=== PATIENT | male | born 1975 | race Caucasian/White ===

== ENCOUNTER 2025-03-06 12:10 | Outpatient (CLI) | payer OTHER, SELFPAY ==
--- NOTE | 2025-03-06 | CONSULT_PTH ---
PATIENT: Clark Delarosa LOC: [facility]#:[id number] AGE/SX: 49/M ROOM: RE03/06/[address]: Jose Carlos Laguna MD : 1975 BED: DIS: 03/06/2025 SPEC #: [id number] RECD: 03/06/25 12:45 STATUS: VALENTE REQ #: [id number] LEBRON: 03/06/25 00:[address]: Jose Carlos Laguna DEPT: [facility] Consult RECD BY: Renetta Almonte MLT, ([facility]) ENTERED: 03/06/25 12:45 SP TYPE: Consult OTHR DR: Aida Ohara, [employer] HELPER Tissues: A - Peripheral Smear Procedures: Hematology Consult
[2025-03-06 12:27] LABS: Hematocrit 49.1 % (40.0-54.0); Hemoglobin 16.4 g/dL (14.0-18.0); Immature Granulocyte Percent A 0.4 % (0.0-0.0); Lymphocytes Absolute Auto 3.95 K/mm3 (1.10-4.50); Mean Corpuscular HGB Conc 33.4 g/dL (32-36); Mean Corpuscular Hemoglobin 31.6 pg (27.0-31.0); Mean Corpuscular Volume 94.6 fL (78.0-102.0); Nucleated Red Blood Cells Absolute Auto 0.00 K/mm3 (0.00-0.00); Nucleated Red Blood Cells Perc 0.0 % (0-0.0); Platelet Count Result 257 K/mm3 (150-420); Red Blood Count 5.19 M/mm3 (4.70-6.10); White Blood Count 18.2 K/mm3 (4.8-10.8)
[2025-03-06 12:58] LABS: CRP < 0.5 mg/dL (<1.0)
--- OUTSIDE RECORDS SUMMARY | 2025-03-06 17:41 | XMS_ITS | Continuity of Care Document ---
Author Organization [facility], Main Office Address [address] [place] [address] Assessment Encounter Date Assessment Date Assessment LastModified by Organization Details LastModified Time 02/27/2025 02/27/2025 Labs and Imaging Visit Summary A 49-year-old male with psychiatric history was seen today for Spravato Treatment. He reported having a crap week and feeling pretty worthless. He missed a treatment appointment earlier in the week due to transportation issues. He denies current suicidal thoughts, thoughts of harming others, and hallucinations. He requested rescheduling appointments for next week, preferring Tuesday rather than Tuesday due to scheduling conflicts. The patient appears to understand the importance of regular treatment, noting he feels better when attending his scheduled appointments. Standardized Scales: PHQ9=20 A 2. Treatment adherence: I discussed with the patient the importance of regular attendance at treatment sessions after he missed an appointment due to transportation issues. He acknowledged feeling better when he maintains his treatment schedule. Rescheduled appointments for next week, with Tuesday morning confirmed Discussed importance of consistent attendance at treatment sessions [email or web address] Not available 02/27/2025 22:36:34 Plan of Treatment Reminders Order Date Submit Date Provider Last Modified By Organization Details Last Modified Time Details Appointments Spravato 2024 10:30A M Spravato Not available Not available Not available Lab None recorded. Referral None recorded. Procedures None recorded. Surgeries None recorded. Imaging None recorded. Medication Orders None recorded. Patient TargetsNo targets recorded. Patient InstructionsNo instructions recorded. Reason for Referral None Reported. 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 01247911 Active 2024 Brittni Braswell CNM, [facility] [address], [place], [address], [facility] 15:57:34 Generalize d anxiety disorder 54051052 Active 2024 Brittni Braswell CNM, [facility] [address], [place], [address], [facility] 13:11:05 Suicidal thoughts 7890939 Active 2024 Brittni Braswell CNM, [facility] [address], [place], [address], [facility] 13:11:32 Severe recurrent major depression 456572263647 Active 2024 Brittni Braswell CNM, [facility] [address], [place], [address], [facility] 21:55:51 Problem Notes None recorded. Medical Equipment None Reported. Allergies No known drug allergies Medications Name Sig Start Date Stop Date Status Note LastModified by Organization Details LastModified Time amoxicillin 500 mg capsule TAKE 1 CAPSULE BY MOUTH EVERY 8 HOURS FOR 7 DAYS 09/20 completed Not Available Not Available Not Available venlafaxine 75 mg tablet TAKE 1 TABLET BY MOUTH TWICE DAILY WITH FOOD 09/20 completed Not Available Not Available Not Available prazosin 1 mg capsule TAKE 1 CAPSULE BY MOUTH DAILY AT BEDTIME NEEDED FOR INSOMNIA active Not Available Not Available No t Available dextroamphe tamine-amph etamine 10 mg tablet TAKE 1 TABLET BY MOUTH EVERY DAY 4 TO 5 HOURS AFTER AFTERNOON DOSE OF 20 MG active Not Available Not Available No t Available clonazepam 0.5 mg tablet TAKE 1 TABLET BY MOUTH EVERY DAY active Not Available Not Available No t Available quetiapine 100 mg tablet TAKE 1 TABLET BY MOUTH DAILY AT BEDTIME active Not Available Not Available No t Available meloxicam 7.5 mg tablet TAKE 1 TABLET BY MOUTH EVERY DAY 10/22 completed Not Available Not Available Not Available propranolol 10 mg tablet TAKE 1 TABLET BY MOUTH THREE TIMES DAILY NEEDED FOR ANXIETY 10/22 completed Not Available Not Available Not Available lorazepam 0.5 mg tablet TAKE 1 TABLET BY MOUTH EVERY DAY NEEDED FOR ANXIETY 10/22 completed Not Available Not Available Not Available tamsulosin 0.4 mg capsule TAKE 1 CAPSULE BY MOUTH EVERY DAY 30 MINUTES AFTER THE SAME MEAL active Not Available Not Available No t Available venlafaxine 37.5 mg tablet TAKE 1 TABLET BY MOUTH EVERY DAY WITH FOOD 09/20 completed Not Available Not Available Not Available buspirone 30 mg tablet active Not Available Not Available Not Available dextroamphe tamine-amph etamine 20 mg tablet TAKE 1 TABLET BY MOUTH IN THE MORNING AND IN THE AFTERNOON AND 5 HOURS APART active Not Available Not Available No t Available venlafaxine 50 mg tablet TAKE 1 TABLET BY MOUTH TWICE DAILY WITH FOOD ALONG WITH 75 MG 09/20 completed Not Available Not Available Not Available diclofenac sodium 75 mg tablet,ludy yed release TAKE 1 TABLET BY MOUTH TWICE DAILY NEEDED FOR PAIN active Not Available Not Available No t Available aripiprazol e 10 mg tablet TAKE 1 TABLET BY MOUTH EVERY DAY 02/18 completed Not Available Not Available Not Available aripiprazol e 15 mg tablet TAKE 1 TABLET BY MOUTH EVERY DAY active Not Available Not Available No t Available aripiprazol e 5 mg tablet TAKE 1 TABLET BY MOUTH EVERY DAY 09/20 completed Not Available Not Available Not Available rosuvastati n 10 mg tablet TAKE 1 TABLET BY MOUTH EVERY DAY 10/22 completed Not Available Not Available Not Available Flomax active Not Available Not Availa ble Not Available quetiapine 50 mg tablet TAKE 1 TABLET BY MOUTH EVERY NIGHT AT BEDTIME active Not Available Not Available No t Available Spravato 56 mg (28 mg x 2) nasal spray Inhale 2 sprays twice a week by intranasa l route. 10/29 completed Not Available Not Available Not Available Spravato 84 mg (28 mg x 3) nasal spray INHALE 84MG PER NASAL ROUTE twice a week 2024 active Not Available Not Available Not Avai lable quetiapine 150 mg tablet TAKE 1 TABLET BY MOUTH EVERY DAY active Not Available Not Available No t Available Auvelity 45 mg-105 mg tablet, extended release TAKE 1 TABLET BY MOUTH TWICE DAILY active Not Available Not Available No t Available Vitals Date Recorded Body height Body mass index (BMI) Body weight Heart rate Oxygen saturation Oxygen saturation in Arterial blood by Pulse oximetry Heart rate Heart rate Oxygen saturation Oxygen saturation in Arterial blood by Pulse oximetry Oxygen saturation Oxygen saturation in Arterial blood by Pulse oximetry Provider Name and Address Organization Details Last Updated DateTime 172.72 cm 25.8 kg/m2 29702.7 g 86 /min 98 % 98 % 68 /min 82 /min 99 % 99 % 100 % 100 % Jocy Calabrese [facility] 16:13:30 Date Recorded Systolic And Diastolic Systolic And Diastolic Systolic And Diastolic Provider Name and Address Organization Details Last Updated DateTime 02/27/2025 129/76 mm[Hg] 134/89 mm[Hg] 124/84 mm[Hg] Jocy Calabrese [facility] 02/27/2025 16:13:10 Social History Question Answer Notes LastModified by [email or web address] Details LastModified Time Tobacco Smoking Status Current Every Day Smoker Brittni Braswell, NIC, PMHNP- [address], [place], [address] 09/20/2024 12:05:26 Are There Any Guns Present In Your Home? Yes [email or web address] Information not available 09/20/2024 Do You Feel Safe In Your Home? Yes [email or web address] Information not available 09/20/2024 How Much Tobacco Do You Smoke? 1 PPD [email or web address] Information not available 09/20/2024 Has Tobacco Cessation Counseling Been Provided? No Information not available 09/20/2024 How Many Years Have You Smoked Tobacco? 35 [email or web address] Information not available 09/20/2024 Sex: Unknown Functional Status Question Answer Note LastModified by Organizat ion Details LastModified Time Do you use any illicit or recreational drugs? No [email or web address] Information not available 09/20/2024 Do you or have you ever used any other forms of tobacco or nicotine? Yes [email or web address] Information not available 09/20/2024 What is your level of alcohol consumption? None [email or web address] Information not available 09/20/2024 Do you or have you ever used e-cigarettes or vape? Never used electronic cigarettes [email or web address] Information not available 09/20/2024 Mental Status Question Answer Note LastModified by Organization D etails LastModified Time Do you feel stressed (tense, restless, nervous, or anxious, or unable to sleep at night)? [id number] [email or web address] Information not available 09/20/2024 Family History Relationship Description Onset Age of this Age Resolved Age Notes LastModified by Organization Details LastModified Time Father Anxiety [email or web address] Not available 09/20/2024 11:47:22 Medical History Condition Response Anxiety Disorder Y Psychiatric/Mental Health Condition Y Depression Y High Cholesterol Y Psychiatric Illness Y Past Encounters Encounter ID Performer Location Encounter Start Date Encounter Closed Date Diagnosis/Indication Diagnosis SNOMED-CT Code Diagnosis ICD10 Code Diagnosis IMO Codes Diagnosis Note [id number] Brittni Braswell CNM, [facility] Main Office [address] [facility] [place] [address] 02/05/2025 09:08:55 02/06/2025 09:22:01 Severe 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 65915549 F33.2 6653108 0810 Spravato 28mg given intranasal ly and repeated at 0815, 3rd dose given at 0820. SAO2 98-99%Jaso n did well with therapy. no dissociati on with treatment. Vss before, during, and after therapy. .Quincy brought Clark to his visit and is here to take home.Disch arge home at 1020. 130minutes total timereturn on tuesday in 2 weeks for next treatment [id number] Brittni Braswell CNM, [facility] Main Office [address] [place] [address] 02/18/2025 11:23:59 02/19/2025 08:02:17 Severe 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 08389443 F33.2 [id number] The patient continues to experience significan t depression symptoms with a PHQ-9 score of 25, showing no improvemen t from previous scores which ranged from 23-27. He reports persistent feelings of worthlessn ess and hopelessne ss that have increased since our last visit. Despite now being able to drive, his motivation remains very low and he still doesn't go anywhere. We discussed treatment options given the lack of improvemen t with the current approach. Increase treatment frequency from every other week to twice weekly for one month After one month, transition to weekly visits before potentiall y returning to the current biweekly schedule Next appointmen t scheduled for Thursday, February 20, 2025, at 10 AM Continue to monitor PHQ-9 scores to track progress Coordinate care with [facility] regarding medication management 10:38 Spravato 28mg given intranasal ly and repeated at 10:43, 3rd dose given at 10:48. SAO2 99%Clark did well with therapy. no dissociati on with treatment. Vss before, during, and after therapy. .Quincy brought Clark to his visit and is here to take home.Disch arge home at 2:48PM, 130minut in 2 weeks for next treatment [id number] Brittni Braswell CNM, [facility] Main Office [address] [place] [address] 02/20/2025 11:20:01 02/21/2025 18:16:30 Severe 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 28057046 F33.2 [id number] The patient continues to experience feelings of worthlessn ess and hopelessne ss, though he notes a little hope there. His sleep has improved with 10+ hours last night and no nap yesterday. I discussed the importance of starting the prescribed duloxetine to help further improve his mood symptoms. Follow up next week to assess response to treatment and spravato treatment Continue to monitor for changes in mood, sleep patterns, and thoughts of self-harm Increase treatment frequency from every other week to twice weekly for one monthAfter one month, transition to weekly visits before potentiall y returning to the current biweekly schedule Continue to monitor PHQ-9 scores to track progress 10:30 Spravato 28mg given intranasal ly and repeated at 10:35, 3rd dose given at 10:40. SAO2 76=249%Kyree on did well with therapy. no dissociati on with treatment. Vss before, during, and after therapy. .Quincy brought Clark to his visit and is here to take home.Disch arge home at 12:40PM, 130minuten ext treatment - Tuesday Brittni Braswell CNM, [facility] Main Office [address] [place] [address] 02/27/2025 11:29:37 02/28/2025 21:20:18 Severe 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 25997347 F33.2 [id number] I discussed with the patient his report of having a crap week and feeling pretty worthless. We noted that he was previously doing better and need to work on returning to that improved state. I assessed for suicidal ideation, which he denied.Doug tillman current treatment approachMo nitor mood symptoms at follow-up appointmen tsSchedule follow-up appointmen ts for next week on Tuesday Increase treatment frequency from every other week to twice weekly for one monthAfter one month, transition to weekly visits before potentiall y returning to the current biweekly schedule Continue to monitor PHQ-9 scores to track progress 10:36 Spravato 28mg given intranasal ly and repeated at 10:41, 3rd dose given at 10:46. SAO2 98-100%Kyree on did well with therapy. no dissociati on with treatment. Vss before, during, and after therapy. .Quincy brought Clark to his visit and is here to take home.Disch arge home at 12:48PM, 132minuten ext treatment - Tuesday Health Concerns Section Related Observation LastModified by Organization Detai ls LastModified Time None Recorded Concern Status LastModified by Organization Details LastModified Time None Recorded Payers Encounter Date Sequence Insurance Name Policy Number Policy Davidson Covered Member ID Davidson Member ID Guarantor Name 02/27/2025 1 [facility] - DOS ON OR AFTER 2020 - DUAL ELIGIBLE (MEDICARE REPLACEMENT/ ADVANTAGE - HMO) Clark Delarosa [id number] Clark Delarosa Notes Date Note Type Note Provider Name and Address Organization Details Recorded Time 02/27/2025 text/html History of present illness Clark Delarosa is a 49-year-old male presenting for spravato treatment. reports having a crap week and feeling anxious about coming to the appointment today. He mentions missing a treatment appointment earlier in the week due to transportation issues with someone named Hosea, stating me and Hosea weren't on the same page that day. He expresses that he hates missing appointments and feels better when he's able to attend his scheduled treatment sessions. When asked about his current mental state, he reports feeling pretty worthless but denies current suicidal thoughts or thoughts of harming others. He also denies any auditory or visual hallucinations. He mentions missing the mehrdda borealis display the previous night because he went to bed early, noting that he typically goes to bed by dark. He expresses interest in trying to stay up to see them tonight. Past Medical History Illness, Injuries, Operations, and Treatment: Not provided Previous Psychiatric or Mental Health Treatment: Patient mentions attending regular treatment sessions, though specific details of treatment are not provided. Previous Psychiatric or Mental Health Hospitalization: Not provided Medication History Brittni Braswell CNM, PMHNP- [address], [place], [address], [facility] 02/27/2025 22:42:33
--- OUTSIDE RECORDS SUMMARY | 2025-03-06 17:41 | XMS_ITS | Continuity of Care Document ---
Author Organization [facility], Main Office Address [address] [place] [address] Assessment Encounter Date Assessment Date Assessment LastModified by Organization Details LastModified Time 02/18/2025 02/18/2025 Labs and Imaging Visit Summary A 49-year-old male with depression was seen today for Spravato treatment. He reports persistent depression symptoms with no improvement since his last visit, including increased feelings of worthlessness and hopelessness. His PHQ-9 score remains elevated at 25, showing no significant improvement from previous scores (which ranged from 23-27). He denies suicidal or homicidal ideation. He is currently taking prazosin for PTSD, and was informed during the visit about a recent FDA recall of prazosin due to potential cancer risk from an impurity classified as carcinogenic. The patient reports seeing his psychiatrist earlier the same day with no changes to his treatment plan. Due to lack of improvement in his symptoms, treatment frequency will be increased from every other week to twice weekly for one month, then transitioning to weekly visits before potentially returning to the current schedule. The patient agreed to this plan and was scheduled for his next appointment on Tuesday at 10 AM. Standardized Scales: PHQ9=25 GAD7=20 The patient is currently taking prazosin for PTSD symptoms. During today's visit, I informed him about recent FDA information regarding a recall of prazosin due to potential cancer risk from an impurity classified as carcinogenic. The patient mentioned his psychiatrist had not discussed this with him during his appointment earlier today. Advised patient to discuss the prazosin recall with his pharmacist when picking up prescriptions later today Suggested he follow up with his psychiatrist regarding potential medication alternatives if needed Continue to monitor for any PTSD symptoms and their response to current treatment [email or web address] Not available 02/18/2025 23:06:39 Plan of Treatment Reminders Order Date Submit [...] Severe 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 [id number] Active 2024 Brittni Braswell CNM, [facility] [address], [place], [address], [facility] 15:57:34 Generalize d anxiety disorder 16119484 Active 2024 Brittni Braswell CNM, [facility] [address], [place], [address], [facility] 13:11:05 Suicidal thoughts 5702829 Active 2024 Brittni Braswell CNM, [facility] [address], [place], [address], [facility] 13:11:32 Severe recurrent major depression [id number] Active 2024 Brittni Braswell CNM, [facility] [address], [place], [address], [facility] 21:55:51 Problem Notes None recorded. Medical Equipment [...] Arterial blood by Pulse oximetry Heart rate Oxygen saturation Oxygen saturation in Arterial blood by Pulse oximetry Heart rate Oxygen saturation Oxygen saturation in Arterial blood by Pulse oximetry Provider Name and Address Organization Details Last Updated DateTime 172.72 cm 26.2 kg/m2 05173.8 9 g 89 /min 99 % 99 % 81 /min 99 % 99 % 77 /min 99 % 99 % Jocy Calabrese [facility] 14:28:52 Date Recorded Systolic And Diastolic Systolic And Diastolic Systolic And Diastolic Provider Name and Address Organization Details Last Updated DateTime 02/18/2025 122/76 mm[Hg] 118/81 mm[Hg] 123/87 mm[Hg] Jocy Calabrese [facility] 02/18/2025 14:28:45 Social History Question Answer Notes LastModified by Organizat ion Details LastModified Time Tobacco Smoking Status Current Every Day Smoker Brittni Braswell, NIC, PMHNP-BC [address], [place], [address], [facility] 09/20/2024 12:05:26 Are There Any Guns Present In Your Home? Yes Information not available 09/20/2024 Do You Feel Safe In Your Home? Yes [email or web address] Information not available 09/20/2024 How Much Tobacco Do You Smoke? 1 PPD Information not available 09/20/2024 Has Tobacco Cessation Counseling Been Provided? No [email or web address] Information not available 09/20/2024 How Many Years Have You Smoked Tobacco? 35 [email or web address] Information not available 09/20/2024 Sex: Unknown Functional Status Question Answer Note LastModified by Organizat ion Details LastModified Time Do you use any illicit or recreational drugs? No [email or web address] Information not available 09/20/2024 Do you or have you ever used any other forms of tobacco or nicotine? Yes [email or web address] Information not available 09/20/2024 What is your level of alcohol consumption? None [email or web address] Information not available 09/20/2024 Do you or have you ever used e-cigarettes or vape? Never used electronic cigarettes Information not available 09/20/2024 Mental Status Question Answer Note LastModified by Organization D etails LastModified Time Do you feel stressed (tense, restless, nervous, or anxious, or unable to sleep at night)? [id number] [email or web address] Information not available 09/20/2024 Family History Relationship Description Onset Age of this Age Resolved Age Notes LastModified by Organization Details LastModified Time Father Anxiety Not available 09/20/2024 11:47:22 Medical History Condition Response Anxiety Disorder Y Psychiatric/Mental Health Condition Y Depression Y High Cholesterol Y Psychiatric Illness Y Past Encounters Encounter ID Performer Location Encounter Start Date Encounter Closed Date Diagnosis/Indication Diagnosis SNOMED-CT Code Diagnosis ICD10 Code Diagnosis IMO Codes Diagnosis Note [id number] Brittni Braswell CNM, [facility]- Main Office [address] [place] [address] 01/21/2025 09:10:22 01/24/2025 00:46:29 Severe 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 66030962 F33.2 [id number] I discussed with the patient his recent improvemen t in mood and energy levels. He reported having a good weekend with his children visiting and noted being more active than usual, not needing to lie down for his typical rest periods. He denied current suicidal ideation, with his last such thoughts occurring a few weeks ago. We discussed continuing his current treatment regimen as he appears to be showing positive response. Continue current treatment plan as the patient is showing improvemen t in mood and energy Monitor for return of suicidal ideation Continue to encourage social interactio n, particular ly with family members as this appears beneficial Follow up to assess ongoing response to treatmentD musa vo y [facility] [place] location when services are establishjade Sharif reassess treatment plan at next visit based on response to reduced session frequencyC ontinue current treatment plan for depression Monitor improvemen t in passive suicidal thoughts, which have decreased with last occurrence last week. continued social engagement and activities of interest 0820 Spravato 28mg given intranasal ly and repeated at 0825, 3rd dose given at 0830. SAO2 98-99%Jaso n did well with therapy. no dissociati on with treatment. Vss before, during, and after therapy. .Quincy brought Clark to his visit and is here to take home.Disch arge home at 1030. 130minutes total timereturn on tuesday in 2 weeks for next treatment [id number] Brittni Braswell CNM, [facility] Main Office [address] [facility] [place] [address] 02/05/2025 09:08:55 02/06/2025 09:22:01 Severe 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 [id number] F33.2 [id number] 0810 Spravato 28mg given intranasal ly and [...] for next treatment [id number] Brittni Braswell CNM, [facility] Main Office [address] [place] [address] 02/18/2025 11:23:59 02/19/2025 08:02:17 Severe 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 [id number] F33.2 [id number] The patient continues to experience significan t [...] to track progress Coordinate care with his pmhnp regarding medication management 10:38 Spravato 28mg given intranasal ly and repeated at 10:43, 3rd dose given at 10:48. SAO2 99%Clark did well with therapy. no dissociati on with treatment. Vss before, during, and after therapy. .Quincy brought Clark to his visit and is here to take home.Disch arge home at 2:48PM, 130minut in 2 weeks for next treatment Health Concerns Section Related Observation LastModified by Organization Detai ls LastModified Time None Recorded Concern Status LastModified by Organization Details LastModified Time None Recorded Payers Encounter Date Sequence Insurance Name Policy Number Policy Davidson Covered Member ID Davidson Member ID Guarantor Name 02/18/2025 1 [facility] - DOS ON OR AFTER 2020 - DUAL ELIGIBLE (MEDICARE REPLACEMENT/ ADVANTAGE - HMO) Clark Delarosa [id number] Clark Delarosa Notes Date Note Type Note Provider Name and Address Organization Details Recorded Time 02/18/2025 text/html History of present illness Clark Delarosa is a 49-year-old male presenting for spravato treatment. reports ongoing significant depression symptoms that have not improved since his last visit. He states, It's not getting no different and It's not getting no better. He endorses continued feelings of worthlessness and hopelessness, which have increased since his last appointment. His motivation remains very low despite now being able to drive. He reports that even though he can drive, he still doesn't go nowhere. He did mention helping both his brothers with painting over the weekend, though he hates painting and felt they were trying to torture him. His youngest brother recently got and moved, while his middle brother is considering selling his house in [place] and needed help with painting. He reports seeing his psychiatrist earlier the same day but states there were no changes made to his treatment plan, describing it as same old, same old. Past Medical History Illness, Injuries, Operations, and Treatment: Not provided Previous Psychiatric or Mental Health Treatment: Not provided Previous Psychiatric or Mental Health Hospitalization: Not provided Medication History Prazosin - Current medication for PTSD. Patient was informed during the visit about a recent recall of prazosin due to potential cancer risk related to an impurity classified as carcinogenic by the FDA. Brittni Braswell CNM, PMHNP- [address], [place], [address], [facility] 02/18/2025 23:07:52
--- OUTSIDE RECORDS SUMMARY | 2025-03-06 17:41 | XMS_ITS | Continuity of Care Document ---
Author Organization [facility], Main Office Address [address] [place] [address] Assessment Encounter Date Assessment Date Assessment LastModified by Organization Details LastModified Time 12/19/2024 12/19/2024 Labs and Imaging Visit Summary A 49-year-old male with a history of depression presented for Spravato treatment. He reports improvement in his symptoms since restarting Abilify after a period of non-adherence. He describes decreased feelings of worthlessness and helplessness, and experiencing a little bit of hope. Sleep has improved with fewer nighttime awakenings, now sleeping about 10 hours per night plus a nap compared to previous 12-13 hours. Appetite has been stable with slight reduction in consumption of sweets. He reports passing his driving test as part of the process to regain his license, which he views as a positive development and something to look forward to. He denies any thoughts of self-harm or harm to others, and denies hallucinations. He appears optimistic about his progress and engaged in treatment. Standardized Scales: PHQ9=23 GAD7=21 [email or web address] Not available 12/19/2024 09:47:18 Plan of Treatment Reminders Order Date Submit [...] Severe 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 95120532 Active 2024 Brittni Braswell CNM, PMHNP-BC [address], [place], [address], [facility] 15:57:34 Generalize d anxiety disorder 39084590 Active 2024 Brittni Braswell CNM, [facility] [address], [place], [address], [facility] 13:11:05 Suicidal thoughts 6380795 Active 2024 Brittni Braswell CNM, [facility] [address], [place], [address], [facility] 13:11:32 Severe recurrent major depression [id number] Active 2024 Brittni Braswell CNM, [facility] [address], [place], [address], [facility] 21:55:51 Problem Notes None recorded. Medical Equipment [...] saturation in Arterial blood by Pulse oximetry Systolic And Diastolic Provider Name and Address Organization Details Last Updated DateTime 5 172.72 cm 25.2 kg/m2 07253.6 1 g 71 /min 98 % 98 % 122/75 mm[Hg] [facility] 09:09:35 Social History Question Answer Notes LastModified by [email or web address] Details LastModified Time Tobacco Smoking Status Current Every Day Smoker Brittni Braswell, NIC, PMHNP- [address], [place], [address], [facility] 09/20/2024 12:05:26 Are There Any Guns Present In Your Home? Yes [email or web address] Information not available 09/20/2024 Do You Feel Safe In Your Home? Yes [email or web address] Information not available 09/20/2024 How Much Tobacco Do You Smoke? 1 PPD [email or web address] Information not available 09/20/2024 Has Tobacco Cessation Counseling Been Provided? No [email or web address] Information not available 09/20/2024 How Many Years Have You Smoked Tobacco? 35 [email or web address] Information not available 09/20/2024 Sex: Unknown Functional Status Question Answer Note LastModified by EPISizYushino Details LastModified Time Do you use any illicit or recreational drugs? No [email or web address] Information not available 09/20/2024 Do you or have you ever used any other forms of tobacco or nicotine? Yes [email or web address] Information not available 09/20/2024 What is your level of alcohol consumption? None [email or web address] Information not available 09/20/2024 Do you or have you ever used e-cigarettes or vape? Never used electronic cigarettes [email or web address] Information not available 09/20/2024 Mental Status Question Answer Note LastModified by Organization D etails LastModified Time Do you feel stressed (tense, restless, nervous, or anxious, or unable to sleep at night)? [id number] Information not available 09/20/2024 Family History Relationship Description Onset Age of this Age Resolved Age Notes LastModified by Organization Details LastModified Time Father Anxiety [email or web address] Not available 09/20/2024 11:47:22 Medical History Condition Response Depression Y Anxiety Disorder Y High Cholesterol Y Psychiatric/Mental Health Condition Y Psychiatric Illness Y Past Encounters Encounter ID Performer Location Encounter Start Date Encounter Closed Date Diagnosis/Indication Diagnosis SNOMED-CT Code Diagnosis ICD10 Code Diagnosis IMO Codes Diagnosis Note [id number] Brittni Braswell CNM, [facility] Main Office [address] [place] [address] 11/19/2024 13:51:23 11/20/2024 06:23:14 Severe 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 33265965 F33.2 [id number] Clark was seen this am by his PMHNP for follow-up Continue current medication regimenMon itor for changes in suicidal ideation and ensure safetyFoll ow up to assess response to treatment1 306Spravat o 28mg given intranasal ly and repeated at 1311, 3rd dose given at 1316. SAO2 99%Clark did well with therapy. no dissociati on with treatment. Vss before, during, and after therapy. .Quincy brought Clark to his visit and is here to take home.Disch arge home at 1516. 142 minutes total timereturn on Tuesday for next treatment Suicidal thoughts [id number] 6 R45.295 [id number] Clark reports chronic passive suicidal thoughts without current intent or plan. He has a history of one psychiatri c hospitaliz ation around 2009 for suicidal ideation.t o text [phone] call 911 or go to the nearest hospital if SI increases [id number] Brittni Braswell CNM, [facility] Main Office [address] [place] [address] 11/21/2024 08:57:48 11/22/2024 06:17:31 Severe 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 84244074 F33.2 [id number] Clark is showing signs of improvemen t with his current treatment regimen. He reports lessening feelings of worthlessn ess and hopelessne ss, increased productivi ty, and improved sleep patterns. He denies suicidal ideation and thoughts of harming others. I believe we are making the turn in terms of his progress, but continued close monitoring is warranted. Continue current treatment planContin ue twice-week ly appointmen ts for one more week, then reassess for potential transition to weekly appointmen tsMonitor for continued improvemen t in mood, productivi ty, and sleep patternsCo ntinue to assess for suicidal ideation and thoughts of harming others at each visit 0814Sprava to 28mg given intranasal ly and repeated at 0819, 3rd dose given at 0824. SAO2 99%Clark did well with therapy. no dissociati on with treatment. Vss before, during, and after therapy. .Quincy brought Clark to his visit and is here to take home.Disch arge home at 1024. 142 minutes total timereturn on Tuesday for next treatment [id number] Brittni Braswell CNM, [facility] Main Office [address] [place] [address] 11/26/2024 09:02:51 11/27/2024 06:20:23 Severe 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 [id number] F33.2 [id number] Patient continues to experience feelings of worthlessn ess, hopelessne ss, and helplessne ss, though reports not dwelling on them as much. His PHQ-9 score remains at 26, which is only slightly improved from his initial score of 27. I discussed with him the importance of accurately reflecting any improvemen ts in his self-asses sment scores, as they may not be capturing subtle changes in his condition. I noted his increased activity level, including putting up a pool for his son's birthday and previously setting up a shed with his brother, as positive signs.Cont inue current treatment regimenEnc ouraged patient to thoughtful ly review his PHQ-9 responses before next visit to ensure they accurately reflect his current stateProvi ded copy of assessment scales for patient to review before next appointmen tAcknowesau geemliy the positive signs of engagement in activities despite depression Scheduled follow-up appointmen t for Thursday, November 28, 2024 0815 Spravato 28mg given intranasal ly and repeated at 0820, 3rd dose given at 0825. SAO2 99%Clark did well with therapy. no dissociati on with treatment. Vss before, during, and after therapy. .Quincy brought Clark to his visit and is here to take home.Disch arge home at 1025. 139minutes total timereturn on Tuesday for next treatment [id number] Brittni Braswell CNM, [facility] Main Office [address] [facility] [place] [address] 11/28/2024 09:04:18 11/29/2024 06:29:54 Severe 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 63067934 F33.2 [id number] The patient continues to experience significan t depressive symptoms including feelings of worthlessn ess, helplessne ss, and lack of hope. He reported passive suicidal thoughts this morning but denied any active thoughts of harming himself. We discussed the importance of continuing regular treatment to address these symptoms and monitor his safety.Con tinue with weekly therapy sessions rather than reducing frequency or taking a break as initially requested by the patientSch daniel next appointmen t for Tuesday of next weekMonito r suicidal ideation closely at each sessionAft catherine choi one month of weekly sessions, reassess for possible transition to every other week appointmen ts depending on symptom improvemen t 0818 Spravato 28mg given intranasal ly and repeated at 0823, 3rd dose given at 0828. SAO2 98-99%Jaso n did well with therapy. no dissociati on with treatment. Vss before, during, and after therapy. .Quincy brought Clark to his visit and is here to take home.Disch arge home at 1029. 144minutes total timereturn on Tuesday for next treatment [id number] Brittni Braswell CNM, PMHNP- Main Office [address] [facility] [place] [address] 12/03/2024 09:01:37 12/04/2024 06:29:14 Severe 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 [id number] F33.2 [id number] I discussed with Clark his improvemen t in depressive symptoms, noting the small improvemen t in his PHQ-9 score. We reviewed his decreased feelings of worthlessn ess and hopelessne ss, which he reports are not as much and not constantly there. I acknowledg ed his progress in engaging in social activities despite finding them difficult, and his initiative in getting a project truck. We discussed the significan ce of these improvemen ts, even though he still feels he has to force himself to participat e.Continue current treatment plan for depression Monitor improvemen t in passive suicidal thoughts, which have decreased with last occurrence on TuesdayEnco urage continued social engagement and activities of interest 0816 Spravato 28mg given intranasal ly and repeated at 0821, 3rd dose given at 0826. SAO2 99%Clark did well with therapy. no dissociati on with treatment. Vss before, during, and after therapy. .Quincy brought Clrak to his visit and is here to take home.Disch arge home at 1026. 138minutes total timereturn on tuesday for next treatment [id number] Brittni Braswell CNM, [facility] Main Office [address] [facility] [place] [address] 12/11/2024 12:40:06 12/12/2024 06:36:21 Severe 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 [id number] F33.2 [id number] Clark continues to experience anxiety symptoms with persistent feelings of worthlessn ess and hopelessne ss, though he reports improvemen t regarding passive suicidal thoughts. We discussed the importance of medication adherence, particular ly with Isabel, which he had inadverten tly discontinu ed when the pharmacy was out of stock. He has now restarted the medication and recognizes its significan t impact on his activity levels. Encouraged continued monitoring of mood, anxiety, and activity levelsPati ent to follow up with nurse practition er in early December (around -) Continue current treatment plan for depression Monitor improvemen t in passive suicidal thoughts, which have decreased with last occurrence last week. continued social engagement and activities of interest 1150 Spravato 28mg given intranasal ly and repeated at 1155, 3rd dose given at 1200. SAO2 100%Clark did well with therapy. no dissociati on with treatment. Vss before, during, and after therapy. .Quincy brought Clark to his visit and is here to take home.Disch arge home at 2:00. 144minutes total timereturn on tuesday for next treatment [id number] Brittni Braswell CNM, [facility] Main Office [address] [facility] [place] [address] 12/19/2024 09:03:23 12/20/2024 06:44:01 Severe 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 [id number] F33.2 [id number] Clark reports improvemen t in his depressive symptoms since restarting Abilify. He describes decreased feelings of worthlessn ess and helplessne ss, and is experienci ng a little bit of hope. I noted his positive outlook and optimism about his progress. He reports improved sleep patterns and stable appetite, which are positive indicators of treatment response.C ontinue Abilify at current dose as it appears to be effective in managing his depressive symptomsEn courage continued medication adherence given the significan t improvemen t noted since restarting the medication Monitor for continued improvemen t in mood, sleep, and other depressive symptomsFo llow up to assess ongoing response to treatment Continue current treatment plan for depression Monitor improvemen t in passive suicidal thoughts, which have decreased with last occurrence last week. continued social engagement and activities of interest 0819 Spravato 28mg given intranasal ly and repeated at 0824, 3rd dose given at 0831. SAO2 98%Clark did well with therapy. no dissociati on with treatment. Vss before, during, and after therapy. .Quincy brought Clark to his visit and is here to take home.Disch arge home at 1031. 144minutes total timereturn on tuesday next week for next treatment Health Concerns Section Related Observation LastModified by Organization Detai ls LastModified Time None Recorded Concern Status LastModified by Organization Details LastModified Time None Recorded Payers Encounter Date Sequence Insurance Name Policy Number Policy Davidson Covered Member ID Davidson Member ID Guarantor Name 12/19/2024 1 [facility] - DOS ON OR AFTER 2020 - DUAL ELIGIBLE (MEDICARE REPLACEMENT/ ADVANTAGE - HMO) Clark Delarosa [id number] Clark Delarosa Notes Date Note Type Note Provider Name and Address Organization Details Recorded Time 12/19/2024 text/html History of present illness Clark Delarosa is a 49-year-old male presenting for Spravato treatment. He reports experiencing a little improvement in his symptoms since restarting Abilify. He states that he had stopped taking Abilify for an unknown period but has recently resumed the medication, which he describes as helping huge. He reports decreased feelings of worthlessness and helplessness compared to his previous visit, and notes experiencing a little bit of hope. He mentions helping his youngest brother move due to his brother's divorce over the weekend, stating they got quite a bit done and got most of the house empty. He denies any thoughts of harming himself or others since his last appointment, including passive thoughts. He denies experiencing hallucinations. Regarding sleep, he reports improvement, stating his sleep has been pretty decent with fewer nighttime awakenings. He notes sleeping about 10 hours per night plus a nap, which he considers better than his previous 12-13 hours of sleep. His appetite has been not too bad, and he reports eating a little less junk food though he still has a sweet tooth for Oreos or ice cream but has laid off that a little bit. He mentions that his children eat most of the sweets when they visit. He expresses that getting his license back would be a big help and something to look forward to. Past Medical History Illness, Injuries, Operations, and Treatment: Not provided Previous Psychiatric or Mental Health Treatment: Not provided Previous Psychiatric or Mental Health Hospitalization: Not provided Medication History Abilify - Patient reports recently restarting this medication after a period of non-adherence. He describes it as helping huge with his symptoms. Brittni Braswell CNM, PMHNP- [address], [place], [address], [facility] 12/19/2024 22:28:03
--- OUTSIDE RECORDS SUMMARY | 2025-03-06 17:41 | XMS_ITS | Continuity of Care Document ---
Author Organization [facility], [place], operated [facility], Main Office Address [address] [place] [address] Assessment Encounter Date Assessment Date Assessment LastModified by Organization Details LastModified Time 12/31/2024 12/31/2024 Labs and Imaging Visit Summary A 49-year-old male with depression presenting for Spravato treatment. He reports continued depressive symptoms including feelings of worthlessness and hopelessness, which have increased slightly since his last visit. He reports experiencing intrusive thoughts without active intent or plan, and denies thoughts of harming others. He is currently taking Abilify and Seroquel, with concerns about the efficacy of Abilify while noting that Seroquel works pretty good. Sleep is described as pretty fair with multiple awakenings throughout the night. He reports having had genetic testing (likely GeneSight) approximately a year ago, which indicated his medications should be effective, causing him frustration given his continued symptoms. The patient expresses dissatisfaction with his current treatment regimen, stating he's almost done with treatments as they're not helping as much as I thought. Discussion included the possibility of conducting another genetic test (Genomind) to better guide medication management. Standardized Scales: PHQ9= 25 2. Sleep Disturbance: The patient reports his sleep as pretty fair, getting about nine hours of sleep but waking up five or six times a night. He notes that he doesn't get up when he wakes, and his watch tracks these awakenings. Continue current sleep medication regimen Monitor sleep quality and patterns at follow-up visits Consider adjustments to medication timing or dosage if sleep disturbances persist [email or web address] Not available 12/31/2024 23:07:27 Plan of Treatment Reminders Order Date Submit [...] Severe 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 03256656 Active 2024 Brittni Braswell CNM, [facility] [address], [place], [address], [facility] 15:57:34 Generalize d anxiety disorder 73777396 Active 2024 Brittni Braswell CNM, [facility] [address], [place], [address], [facility] 13:11:05 Suicidal thoughts 4681320 Active 2024 Brittni Braswell CNM, [facility] [address], [place], [address], [facility] 13:11:32 Severe recurrent major depression 878220943680 Active 2024 Brittni Braswell CNM, [facility] [address], [place], [address], [facility] 21:55:51 Problem Notes None recorded. Medical Equipment [...] mass index (BMI) Body weight Heart rate Heart rate Heart rate Oxygen saturation Oxygen saturation in Arterial blood by Pulse oximetry Oxygen saturation Oxygen saturation in Arterial blood by Pulse oximetry Oxygen saturation Oxygen saturation in Arterial blood by Pulse oximetry Provider Name and Address Organization Details Last Updated DateTime 172.72 cm 24.8 kg/m2 51379.5 6 g 83 /min 77 /min 72 /min 99 % 99 % 96 % 96 % 98 % 98 % Jocyavel Calabrese [facility] 16:56:40 Date Recorded Systolic And Diastolic Systolic And Diastolic Systolic And Diastolic Provider Name and Address Organization Details Last Updated DateTime 12/31/2024 110/74 mm[Hg] 105/72 mm[Hg] 121/85 mm[Hg] Jocy Calabrese [facility] 12/31/2024 16:55:39 Social History Question Answer Notes LastModified by True Style Details LastModified Time Tobacco Smoking Status Current Every Day Smoker Brittni Braswell, NIC, PMHNP- [address], [place], [address], [facility] 09/20/2024 12:05:26 Are There Any Guns Present In Your Home? Yes [email or web address] Information not available 09/20/2024 Do You Feel Safe In Your Home? Yes [email or web address] Information not available 09/20/2024 How Much Tobacco Do You Smoke? 1 PPD [email or web address] Information not available 09/20/2024 Has Tobacco Cessation Counseling Been Provided? No [email or web address] Information not available 09/20/2024 How Many Years Have You Smoked Tobacco? 35 Information not available 09/20/2024 Sex: Unknown Functional Status Question Answer Note LastModified by True Style Details LastModified Time Do you use any illicit or recreational drugs? No [email or web address] Information not available 09/20/2024 Do you or have you ever used any other forms of tobacco or nicotine? Yes [email or web address] Information not available 09/20/2024 What is your level of alcohol consumption? None [email or web address] Information not available 09/20/2024 Do you or have you ever used e-cigarettes or vape? Never used electronic cigarettes [email or web address] Information not available 09/20/2024 Mental Status Question Answer Note LastModified by Organization D etails LastModified Time Do you feel stressed (tense, restless, nervous, or anxious, or unable to sleep at night)? [id number] [email or web address] Information not available 09/20/2024 Family History Relationship Description Onset Age of this Age Resolved Age Notes LastModified by Organization Details LastModified Time Father Anxiety [email or web address] Not available 09/20/2024 11:47:22 Medical History Condition Response Anxiety Disorder Y Psychiatric/Mental Health Condition Y Depression Y High Cholesterol Y Psychiatric Illness Y Past Encounters Encounter ID Performer Location Encounter Start Date Encounter Closed Date Diagnosis/Indication Diagnosis SNOMED-CT Code Diagnosis ICD10 Code Diagnosis IMO Codes Diagnosis Note [id number] Brittni Braswell CNM, [facility]- Main Office [address] [place] [address] 12/03/2024 09:01:37 12/04/2024 06:29:14 Severe 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 63775816 F33.2 [id number] I discussed with Clark his improvemen t [...] visit and is here to take home.Disch leno home at 1026. 138minutes total timereturn on tuesday for next treatment [id number] Brittni Braswell CNM, [facility] Main Office [address] [place] [address] 12/11/2024 12:40:06 12/12/2024 06:36:21 Severe 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 44272714 F33.2 [id number] Clark continues to experience anxiety symptoms with persistent feelings of worthlessn ess and hopelessne ss, though he reports improvemen t regarding passive suicidal thoughts. We discussed the importance of medication adherence, particular ly with Abilikristiany, which he had inadverten tly discontinu ed [...] visit and is here to take home.Disch argjade home at 2:00. 144minutes total timereturn on tuesday for next treatment [id number] Brittni Braswell CNM, [facility] Main Office [address] [place] [address] 12/19/2024 09:03:23 12/20/2024 06:44:01 Severe 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 80609001 F33.2 [id number] Clark reports improvemen t in his depressive [...] on tuesday next week for next treatment [id number] Brittni Braswell CNM, PMHNP- Main Office [address] [place] [address] 12/25/2024 09:00:36 12/26/2024 06:41:24 Severe 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 23609758 F33.2 [id number] Patient reports feeling anxious today and mentions forgetting to take his anxiety medication . He continues to experience feelings of worthlessn ess and hopelessne ss, though these are reduced in intensity and frequency compared to previous visits. I noted that he has been taking Abilify during the daytime to help with mood management .Continue current medication regimen with Abilify for daytime mood management Emphasize importance of medication adherence for anxiety management Monitor anxiety symptoms at next follow-up appointmen t Continue current treatment plan for depression Monitor improvemen t in passive suicidal thoughts, which have decreased with last occurrence last week. continued social engagement and activities of interest 0815 Spravato 28mg given intranasal ly and repeated at 0820, 3rd dose given at 0826. SAO2 100%Clark did well with therapy. no dissociati on with treatment. Vss before, during, and after therapy. .Quincy brought Clark to his visit and is here to take home.Disch arge home at 1028. 142minutes total timereturn on tuesday next week for next treatment [id number] Brittni Braswell CNM, PMHNP- Main Office [address] [place] [address] 12/31/2024 09:05:07 01/01/2025 16:42:21 Severe 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 18971873 F33.2 [id number] Clark continues to experience significan t depressive symptoms including feelings of worthlessn ess and hopelessne ss, which have increased slightly since his last visit. He reports intrusive thoughts without active intent. His PHQ-9 score remains unchanged from previous visits. We discussed his current medication regimen and his concerns about the efficacy of Abilify. I acknowledg ed his frustratio n with the treatment response and explored options for optimizing his medication regimen. Continue current treatment with close monitoring of depressive symptoms Consider Genomind genetic testing to better guide medication management , pending insurance coverage Discussed previous GeneSight testing (barona zahida one year ago) and the potential benefits of updated testing with Genomind Continue to monitor for suicidal ideation and safety concerns Follow up to reassess treatment response and make necessary adjustment s Continue current treatment plan for depression Monitor improvemen t in passive suicidal thoughts, which have decreased with last occurrence last week. continued social engagement and activities of interest 0823 Spravato 28mg given intranasal ly and repeated at 0828, 3rd dose given at 0833. SAO2 94-98%Brody blanchard did well with therapy. no dissociati on with treatment. Vss before, during, and after therapy. .Quincy brought Clark to his visit and is here to take home.Disch arge home at 1040. 148minutes total timereturn on tuesday next week for next treatment Health Concerns Section Related Observation LastModified by Organization Detai ls LastModified Time None Recorded Concern Status LastModified by Organization Details LastModified Time None Recorded Payers Encounter Date Sequence Insurance Name Policy Number Policy Davidson Covered Member ID Davidson Member ID Guarantor Name 12/31/2024 1 [facility] - DOS ON OR AFTER 2020 - DUAL ELIGIBLE (MEDICARE REPLACEMENT/ ADVANTAGE - HMO) Clark Delarosa [id number] Clark Delarosa Notes Date Note Type Note Provider Name and Address Organization Details Recorded Time 12/31/2024 text/html History of present illness Clark Delarosa is a 49-year-old male presenting for Spravato treatment. He reports his mood as depressed and states that feelings of worthlessness and hopelessness have increased a little bit since his last visit. He mentions having intrusive suicidal thoughts, specifically thinking about that bullet with my name on it that he used to have but no longer possesses. He clarifies these were intrusive thoughts that just popped in my head rather than active suicidal ideation, with no apparent triggers. He denies thoughts of harming others. Clark reports his sleep as pretty fair, getting about nine hours of sleep but waking up five or six times a night. He notes that he doesn't get up when he wakes, and his watch tracks these awakenings. He expresses frustration with his current treatment, stating he's almost done with treatments as they're not helping as much as I thought. He specifically questions the efficacy of Abilify, stating I don't know if it's doing much of anything, while noting that Seroquel works pretty good. He mentions that his provider recently extended his follow-up appointment to two months. He reports having had genetic testing done approximately a year ago, which he believes was [employer]. According to the test results, everything should be working, which he finds frustrating given his continued symptoms. Past Medical History Illness, Injuries, Operations, and Treatment: Not provided Previous Psychiatric or Mental Health Treatment: Not provided Previous Psychiatric or Mental Health Hospitalization: Not provided Medication History Current medications include Abilify (aripiprazole) and Seroquel (quetiapine). Patient reports that Seroquel works pretty good but questions the efficacy of Abilify, stating I don't know if it's doing much of anything. He previously discontinued Abilify at some point but was restarted on it, with temporary improvement that has since diminished. Brittni Braswell, NIC, PMHNP-BC [address], [place], [address], [facility] 12/31/2024 23:11:58
--- OUTSIDE RECORDS SUMMARY | 2025-03-06 17:41 | XMS_ITS | Continuity of Care Document ---
Author Organization [facility], Main Office Address [address] [place] [address] Assessment Encounter Date Assessment Date Assessment LastModified by Organization Details LastModified Time 02/05/2025 02/05/2025 Labs and Imaging Visit Summary A 49-year-old male with history of severe recurrent mdd here for spravato treatment. He reports sleep difficulties since his Seroquel was reduced from 100mg to 50mg as part of a plan to eliminate the medication. He currently takes over an hour to fall asleep despite having the TV on at low volume. He continues to experience feelings of worthlessness but acknowledges a little bit of hope and some overall improvement. He reports being somewhat more productive, having pressure washed part of his house, though he struggles to complete tasks. His appetite is variable, with some days not eating until nighttime and other days waking up hungry. He denies suicidal/homicid al thoughts and hallucinations. He reports progress with obtaining his permit and has an appointment to install an ignition interlock device in his car today. Standardized Scales: PHQ9=23 [email or web address] Not available 02/05/2025 14:40:14 Plan of Treatment Reminders Order Date Submit [...] Severe 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 30932709 Active 2024 Brittni Braswell CNM, [facility] [address], [place], [address], [facility] 15:57:34 Generalize d anxiety disorder 50412847 Active 2024 Brittni Braswell CNM, [facility] [address], [place], [address], [facility] 13:11:05 Suicidal thoughts 4282091 Active 2024 Brittni Braswell CNM, [facility] [address], [place], [address], [facility] 13:11:32 Severe recurrent major depression 748234404548 Active 2024 Brittni Braswell CNM, [facility] [address], [place], [address], [facility] 21:55:51 Problem Notes None recorded. Medical Equipment [...] Organization Details Last Updated DateTime 172.72 cm 25.4 kg/m2 95216.9 3 g 97 /min 100 % 100 % 85 /min 90 /min 96 % 96 % 99 % 99 % Jocy Calabrese [facility] 11:23:57 Date Recorded Systolic And Diastolic Systolic And Diastolic Systolic And Diastolic Provider Name and Address Organization Details Last Updated DateTime 02/05/2025 115/72 mm[Hg] 127/78 mm[Hg] 122/82 mm[Hg] Jocy Calabrese [facility] 02/05/2025 11:23:31 Social History Question Answer Notes LastModified by [employer] Details LastModified Time Tobacco Smoking Status Current Every Day Smoker Brittni Braswell, NIC, PMHNP- [address], [place], [address] 09/20/2024 12:05:26 Are There Any Guns Present In Your Home? Yes [email or web address] Information not available 09/20/2024 Do You Feel Safe In Your Home? Yes [email or web address] Information not available 09/20/2024 How Much Tobacco Do You Smoke? 1 PPD [email or web address] Information not available 09/20/2024 Has Tobacco Cessation Counseling Been Provided? No [email or web address] Information not available 09/20/2024 How Many Years Have You Smoked Tobacco? 35 [email or web address] Information not available 09/20/2024 Sex: Unknown Functional Status Question Answer Note LastModified by [employer] Details LastModified Time Do you use any illicit or recreational drugs? No [email or web address] Information not available 09/20/2024 Do you or have you ever used any other forms of tobacco or nicotine? Yes [email or web address] Information not available 09/20/2024 What is your level of alcohol consumption? None [email or web address] Information not available 09/20/2024 Do you or have you ever used e-cigarettes or vape? Never used electronic cigarettes [email or web address] Information not available 09/20/2024 Mental Status Question Answer Note LastModified by Organization D etails LastModified Time Do you feel stressed (tense, restless, nervous, or anxious, or unable to sleep at night)? [id number] Information not available 09/20/2024 Family History Relationship Description Onset Age of this Age Resolved Age Notes LastModified by Organization Details LastModified Time Father Anxiety [email or web address] Not available 09/20/2024 11:47:22 Medical History Condition Response Depression Y Psychiatric Illness Y Anxiety Disorder Y High Cholesterol Y Psychiatric/Mental Health Condition Y Past Encounters Encounter ID Performer Location Encounter Start Date Encounter Closed Date Diagnosis/Indication Diagnosis SNOMED-CT Code Diagnosis ICD10 Code Diagnosis IMO Codes Diagnosis Note [id number] [facility] [address] [place] [address] 01/07/2025 09:10:58 01/09/2025 07:41:37 Severe 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 [id number] F33.2 [id number] I discussed with Clark his ongoing symptoms of depression including persistent feelings of worthlessn ess and hopelessne ss, excessive sleeping, lack of motivation , and social withdrawal . He expressed frustratio n with the lack of progress in his treatment. We explored options including potentiall y trying alternativ e treatments .Reduce treatment frequency from weekly to every other week to assess impact on conditionI nformed patient that I would not be filling his medication for next week as we reassess treatment directionD [facility] services are establishe emily Sharif reassess treatment plan at next visit based on response to reduced session frequencyC ontinue current treatment plan for depression Monitor improvemen t in passive suicidal thoughts, which have decreased with last occurrence last week. continued social engagement and activities of interest 0818 Spravato 28mg given intranasal ly and repeated at 0823, 3rd dose given at 0828. SAO2 97-100%Kyree on did well with therapy. no dissociati on with treatment. Vss before, during, and after therapy. .Quincy brought Clark to his visit and is here to take home.Disch arge home at 1030. 136minutes total timereturn on tuesdayin 2 weeks for next treatment [id number] Brittni Braswell CNM, [facility] Main Office [address] [place] [address] 01/21/2025 09:10:22 01/24/2025 00:46:29 Severe 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 [id number] F33.2 [id number] I discussed with the patient his recent [...] up to assess ongoing response to treatmentD iscussed possibilit y of [facility] when services are establishe emily Sharif reassess treatment plan at next visit [...] for next treatment [id number] Brittni Braswell CNM, [facility] Main Office [address] [place] [address] 02/05/2025 09:08:55 02/06/2025 09:22:01 Severe 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 [id number] F33.2 6733766 0810 Spravato 28mg given intranasal ly and repeated at 0815, 3rd dose given at 0820. SAO2 98-99%Jaso n did well with therapy. no dissociati on with treatment. Vss before, during, and after therapy. .Quincy brought Clark to his visit and is here to take home.Disch leno home at 1020. 130minutes total timereturn on tuesday in 2 weeks for next treatment Health Concerns Section Related Observation LastModified by Organization Detai ls LastModified Time None Recorded Concern Status LastModified by Organization Details LastModified Time None Recorded Payers Encounter Date Sequence Insurance Name Policy Number Policy Davidson Covered Member ID Davidson Member ID Guarantor Name 02/05/2025 1 [facility] - DOS ON OR AFTER 2020 - DUAL ELIGIBLE (MEDICARE REPLACEMENT/ ADVANTAGE - HMO) Clark Delarosa [id number] Clark Delarosa Notes Date Note Type Note Provider Name and Address Organization Details Recorded Time 02/05/2025 text/html History of present illness Clark Delarosa is a 49-year-old male presenting for Spravato treatment. He reports being a little bit productive recently, mentioning that he pressure washed part of his house yesterday, which he considers an improvement. However, he expresses frustration about not being able to finish things he starts. He reports significant sleep difficulties, stating it takes him well over an hour to fall asleep. He attributes this partly to his Seroquel dosage being lowered from 100mg to 50mg, as his provider is trying to eliminate this medication. While trying to fall asleep, he reports his brain's just wandering around despite having the TV on at a low volume. He continues to experience feelings of worthlessness. On a positive note, he obtained his permit and has an appointment today at 1:00 PM to get an Intoxalock (ignition interlock device) installed in his car. When asked about hope, he responds little bit, I guess. He denies suicidal thoughts, homicidal thoughts, and hallucinations. His appetite is variable - some days he won't eat until nighttime and doesn't feel hungry, while other days he wakes up feeling very hungry. He acknowledges there have been some improvements in his condition overall. Past Medical History Illness, Injuries, Operations, and Treatment: Not provided Previous Psychiatric or Mental Health Treatment: Not provided Previous Psychiatric or Mental Health Hospitalization: Not provided Medication History Seroquel (quetiapine): Previously on 100mg, recently reduced to 50mg. Provider is attempting to eliminate this medication. Patient reports sleep difficulties since the dosage reduction. Brittninatan Braswell CNM, PMHNP- [address], [place], [address], [facility] 02/05/2025 14:42:57
--- OUTSIDE RECORDS SUMMARY | 2025-03-06 17:41 | XMS_ITS | Continuity of Care Document ---
Author Organization [facility], Main Office Address [address] [place] [address] Assessment Encounter Date Assessment Date Assessment LastModified by Organization Details LastModified Time 12/25/2024 12/25/2024 A 49-year-old male with a history of anxiety, feelings of worthlessness and hopelessness was seen today for Spravato. He reported forgetting to take his anxiety medication today. He noted that his feelings of worthlessness and hopelessness are still present but reduced in intensity and frequency, no longer occurring daily. He denied any suicidal or homicidal ideation. He is currently taking quetiapine, which was recently reduced from 100mg to 50mg by another provider due to concerns about oversleeping. He also takes Abilify during the daytime to help with mood. He reported that quetiapine has been helpful for his sleep issues, particularly with staying asleep throughout the night. His sleep is currently pretty good at approximately nine hours per night. 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 He recently purchased a [id number] truck as a winter project, which he described as giving him something to do instead of just wasting away. This appears to be a positive development for his mental health, providing him with a goal and activity to focus on. Standardized Scales: PHQ9=25 GAD7=20 [email or web address] Not available 12/25/2024 21:41:25 Plan of Treatment Reminders Order Date Submit [...] Severe 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 58248094 Active 2024 Brittni Braswell CNM, [facility] [address], [place], [address], [facility] 15:57:34 Generalize d anxiety disorder 57799456 Active 2024 Brittni Braswell CNM, [facility] [address], [place], [address], [facility] 13:11:05 Suicidal thoughts 4486307 Active 2024 Brittni Braswell CNM, [facility] [address], [place], [address], [facility] 13:11:32 Severe recurrent major depression 143214400694 Active 2024 Brittni Braswell CNM, [facility] [address], [place], [address], [facility] 21:55:51 Problem Notes None recorded. Medical Equipment [...] Organization Details Last Updated DateTime 172.72 cm 25.3 kg/m2 11842.0 5 g 75 /min 100 % 100 % 89 /min 83 /min 100 % 100 % 99 % 99 % Jocyavel Calabrese [facility] 12:30:01 Date Recorded Systolic And Diastolic Systolic And Diastolic Systolic And Diastolic Provider Name and Address Organization Details Last Updated DateTime 12/25/2024 111/76 mm[Hg] 110/76 mm[Hg] 107/70 mm[Hg] Jocy Calabrese [facility] 12/25/2024 12:29:33 Social History Question Answer Notes LastModified by Organizat ion Details LastModified Time Tobacco Smoking Status Current Every Day Smoker Brittni Braswell, NIC, PMHNP- [address], [place], [address], [facility] 09/20/2024 12:05:26 Are There Any Guns Present In Your Home? Yes [email or web address] Information not available 09/20/2024 Do You Feel Safe In Your Home? Yes [email or web address] Information not available 09/20/2024 How Much Tobacco Do You Smoke? 1 PPD [email or web address] Information not available 09/20/2024 Has Tobacco Cessation Counseling Been Provided? No [email or web address] Information not available 09/20/2024 How Many Years Have You Smoked Tobacco? 35 [email or web address] Information not available 09/20/2024 Sex: Unknown Functional Status Question Answer Note LastModified by Organizat ion Details LastModified Time Do you use any illicit or recreational drugs? No [email or web address] Information not available 09/20/2024 Do you or have you ever used any other forms of tobacco or nicotine? Yes [email or web address] Information not available 09/20/2024 What is your level of alcohol consumption? None [email or web address] Information not available 09/20/2024 Do you or have you ever used e-cigarettes or vape? Never used electronic cigarettes [email or web address] Information not available 09/20/2024 Mental Status Question Answer Note LastModified by Organization D etails LastModified Time Do you feel stressed (tense, restless, nervous, or anxious, or unable to sleep at night)? [id number] [email or web address] Information not available 09/20/2024 Family History Relationship [...] ICD10 Code Diagnosis IMO Codes Diagnosis Note [id number] Brittni Braswell CNM, [facility]- Main Office [address] [place] [address] 11/26/2024 09:02:51 11/27/2024 06:20:23 Severe 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 81222620 F33.2 [id number] Patient continues to experience feelings of worthlessn [...] patient to review before next appointmen tAcknowesau geemily the positive signs of engagement in activities [...] here to take home.Disch leno home at 1025. 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 He reported passive suicidal thoughts this morning but denied any active thoughts of harming himself. We discussed the importance of continuing regular treatment to address these symptoms and monitor his safety.Doug ramirezue with weekly therapy sessions rather than reducing frequency or taking a break as initially requested by the patientSch daniel next appointmen t for Tuesday of weekMonito r suicidal ideation closely at each sessionAft catherine choi one month of weekly sessions, reassess for possible transition to every other week appointmen ts depending on symptom improvemen t 0818 Spravato 28mg given intranasal ly and repeated at 0823, 3rd dose given at 0828. SAO2 98-99%Brody blanchard did well with therapy. no dissociati on with treatment. Vss before, during, and after therapy. .Quincy brought Clark to his visit and is here to take home.Disch argjade home at 1029. 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 SAO2 100%Clakr did well with therapy. no dissociati on with treatment. Vss before, during, and after therapy. .Quincy brought Clark to his visit and is here to take home.Disch arge home at 2:00. 144minutes total timereturn on tuesday for next treatment [id number] Brittni Braswell CNM, [facility] Main Office [address] [facility] [place] [address] 12/19/2024 09:03:23 12/20/2024 06:44:01 Severe 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 98432001 F33.2 [id number] Clark reports improvemen t in his depressive [...] for next treatment [id number] Brittni Braswell CNM, [facility] Main Office [address] [facility] [place] [address] 12/25/2024 09:00:36 12/26/2024 06:41:24 Severe 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 19634637 F33.2 [id number] Patient reports feeling anxious today and mentions [...] Member ID Davidson Member ID Guarantor Name 12/25/2024 1 [facility] - DOS ON OR AFTER 2020 - DUAL ELIGIBLE (MEDICARE REPLACEMENT/ ADVANTAGE - HMO) Clark Delarosa [id number] Clark Delarosa Notes Date Note Type Note Provider Name and Address Organization Details Recorded Time 12/25/2024 text/html History of present illness Clark Delarosa is a 49-year-old male presenting for Spravato. He reports feeling anxious today and mentions that he forgot to take his anxiety medication. He states that feelings of worthlessness and hopelessness are still there, but not as much and notes these feelings are no longer occurring daily. He denies any suicidal or homicidal ideation, stating I don't wanna kill nobody or myself. He reports his sleep is pretty good at approximately nine hours per night. He mentions that he was seen by another provider yesterday who reduced his quetiapine dosage from 100mg to 50mg due to concerns about oversleeping. He notes that prior to taking quetiapine, he had trouble staying asleep and would wake up, like, 20 different times throughout the night. He states the medication has helped him sleep better. He reports that he takes Abilify during the daytime to help with his mood. When asked about weekend activities, he states I didn't do nothing this weekend and mentions missing a [place] festival he wanted to attend due to lack of transportation. 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 He recently purchased a 7555-70 pickup truck as a project for the winter, stating it will give him something to do instead of just wasting away. He had to create a Facebook account specifically to find this truck, which his brother drove home for him. He describes the truck as being in really good shape though needing some work. Past Medical History Illness, Injuries, Operations, and Treatment: Not provided Previous Psychiatric or Mental Health Treatment: Not provided Previous Psychiatric or Mental Health Hospitalization: Not provided Medication History Quetiapine: Previously taking 100mg (immediate release). Dosage was reduced to 50mg yesterday by another provider due to concerns about oversleeping. Patient reports the medication helps him sleep better and previously helped with staying asleep throughout the night. Abilify: Currently taking during daytime to help with mood. Dosage unknown. Brittni Braswell CNM, PMHNP- [address], [place], [address], [facility] 12/25/2024 21:43:47
--- OUTSIDE RECORDS SUMMARY | 2025-03-06 17:41 | XMS_ITS | Continuity of Care Document ---
Author Organization [facility], Main Office Address [address] [place] [address] Assessment Encounter Date Assessment Date Assessment LastModified by Organization Details LastModified Time 01/21/2025 01/21/2025 Labs and Imaging Visit Summary A 49-year-old male with a history of depression presents for Spravato treatment. He reported improvement in his mood and energy levels over the weekend, which he attributes partly to his children visiting, and due to starting microdosing psilocybin. He noted being more active than usual, not needing to lie down for his typical 45-minute rest periods even with his children present. He described having a half assed productive weekend, which represents an improvement in his functioning. Sleep was disrupted the night before the appointment, with hourly awakenings and intelligence applications awakening at 4:00 AM, though he typically functions well on 4.5-5 hours of sleep. He denied current suicidal ideation, reporting his last such thoughts were a few weeks ago, and denied homicidal ideation. The patient appears to be responding to current treatment, showing improved mood and energy. He mentioned his brother has recently started microdosing psilocybin with reported positive effects. The patient appears to be continuing with some form of treatment that was discussed in a previous appointment. Standardized Scales: PHQ9=23 GAD7=21 2. Sleep Disturbance: The patient reported disrupted sleep the night before the appointment, waking approximately every hour and finally getting up at 4:00 AM. He typically functions well on 4.5-5 hours of sleep, though he noted his sleep patterns have changed in recent years. Monitor sleep patterns and their impact on mood and functioning No medication changes for sleep at this time as this appears to be an isolated incident Follow up on sleep quality at next appointment [email or web address] Not available 01/22/2025 11:15:43 Plan of Treatment Reminders Order Date Submit Date Provider Last Modified By Organization Details Last Modified Time Details Appointments Spravato 2024 10:30A M Spravato Not available Not available Not available Lab None recorded. Referral None recorded. Procedures None recorded. Surgeries None recorded. Imaging None recorded. Medication Orders None recorded. Patient TargetsNo targets recorded. Patient Instructions Encounter Date Encounter Id Patient Instructions Last Modified By Organization Details Last Modified Time 01/21/2025 [id number] depression treatment: care instructions [email or web address] Not available 01/22/2025 11:21:29 Reason for Referral None Reported. 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 69072869 Active 2024 Brittni Braswell CNM, [facility] [address], [place], [address], [facility] 15:57:34 Generalize d anxiety disorder 97179548 Active 2024 Brittni Braswell CNM, [facility] [address], [place], [address], [facility] 13:11:05 Suicidal thoughts 4308153 Active 2024 Brittni Braswell CNM, [facility] [address], [place], [address], [facility] 13:11:32 Severe recurrent major depression 418094154527 Active 2024 Brittni Braswell CNM, [facility] [address], [place], [address], [facility] 21:55:51 Problem Notes None recorded. [...] Organization Details Last Updated DateTime 172.72 cm 25.2 kg/m2 96673.3 3 g 88 /min 99 % 99 % 86 /min 98 % 98 % 81 /min 99 % 99 % Jocy Calabrese [facility] 11:58:10 Date Recorded Systolic And Diastolic Systolic And Diastolic Systolic And Diastolic Provider Name and Address Organization Details Last Updated DateTime 01/21/2025 127/86 mm[Hg] 118/78 mm[Hg] 99/69 mm[Hg] Jocy Calabrese [facility] 01/21/2025 11:57:56 Social History Question Answer Notes LastModified by Organizat ion Details LastModified Time Tobacco Smoking Status Current Every Day Smoker Brittni Braswell, NIC, PMHNP- [address], [place], [address], [facility] 09/20/2024 12:05:26 Are There Any Guns Present In Your Home? Yes [email or web address] Information not available 09/20/2024 Do You Feel Safe In Your Home? Yes [email or web address] Information not available 09/20/2024 How Much Tobacco Do You Smoke? 1 PPD Information not available 09/20/2024 Has Tobacco Cessation Counseling Been Provided? No [email or web address] Information not available 09/20/2024 How Many Years Have You Smoked Tobacco? 35 [email or web address] Information not available 09/20/2024 Sex: Unknown Functional Status Question Answer Note LastModified by Organizat ion Details LastModified Time Do you use any illicit or recreational drugs? No [email or web address] Information not available 09/20/2024 Do you or have you ever used any other forms of tobacco or nicotine? Yes [email or web address] Information not available 09/20/2024 What is your level of alcohol consumption? None [email or web address] Information not available 09/20/2024 Do you or have you ever used e-cigarettes or vape? Never used electronic cigarettes [email or web address] Information not available 09/20/2024 Mental Status Question Answer Note LastModified by Organization D etails LastModified Time Do you feel stressed (tense, restless, nervous, or anxious, or unable to sleep at night)? [id number] [email or web address] Information not available 09/20/2024 Family History Relationship Description Onset Age of this Age Resolved Age Notes LastModified by Organization Details LastModified Time Father Anxiety [email or web address] Not available 09/20/2024 11:47:22 Medical History Condition Response Anxiety Disorder Y Psychiatric/Mental Health Condition Y Depression Y High Cholesterol Y Psychiatric Illness Y Past Encounters Encounter ID Performer Location Encounter Start Date Encounter Closed Date Diagnosis/Indication Diagnosis SNOMED-CT Code Diagnosis ICD10 Code Diagnosis IMO Codes Diagnosis Note [id number] [facility] Braswell [facility], [facility] Main Office [address] [place] [address] 12/25/2024 09:00:36 12/26/2024 06:41:24 Severe 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 90305147 F33.2 [id number] Patient reports feeling anxious today and mentions [...] for next treatment [id number] Brittni Braswell CNM, [facility] Main Office [address] [place] [address] 12/31/2024 09:05:07 01/01/2025 16:42:21 Severe 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 40201093 F33.2 [id number] Clark continues to experience significan t depressive [...] pending insurance coverage Discussed previous Gene[employer]ight testing (approxima zahida one year ago) and the potential [...] 3rd dose given at 0833. SAO2 94-98%Brody n did well with therapy. no dissociati on with treatment. Vss before, during, and after therapy. .Quincy brought Clark to his visit and is here to take home.Disch arge home at 1040. 148minutes total timereturn on tuesday next week for next treatment [id number] Brittni Braswell CNM, [facility] Main Office [address] [place] [address] 01/07/2025 09:10:58 01/09/2025 07:41:37 Severe 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 23634303 F33.2 [id number] I discussed with Clark his ongoing symptoms [...] next week as we reassess treatment directionD musa vo y of [facility] when services are establishe emily Sharif reassess [...] on tuesdayin 2 weeks for next treatment [id number] Brittni Braswell CNM, [facility] Main Office [address] [place] [address] 01/21/2025 09:10:22 01/24/2025 00:46:29 Severe 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 21228949 F33.2 [id number] I discussed with the patient his recent [...] to treatmentD [facility] when services are establishe emily Sharif reassess treatment plan at next visit based on response to reduced session frequencyC ontinue current treatment plan for depression Monitor improvemen t in passive suicidal thoughts, which have decreased with last occurrence last week. continued social engagement and activities of interest 0820 Spravato 28mg given intranasal ly and repeated at 0825, 3rd dose given at 0830. SAO2 98-99%Jeffso lo did well with therapy. no dissociati on [...] Member ID Davidson Member ID Guarantor Name 01/21/2025 1 [facility] - DOS ON OR AFTER 2020 - DUAL ELIGIBLE (MEDICARE REPLACEMENT/ ADVANTAGE - HMO) Clark Delarosa [id number] Clark Delarosa Notes Date Note Type Note Provider Name and Address Organization Details Recorded Time 01/21/2025 text/html History of present illness Clark Delarosa is a 49-year-old male presenting for Spravato treatment. Spravato treatments have started every 2 weeks now. He reports having a good weekend, noting that his children were visiting which helped improve his mood, and from starting microdosing psilocybin and reported positive effects after just starting treatment. He denied current suicidal ideation, with his last such thoughts occurring a few weeks ago. We discussed continuing his current treatment regimen as he appears to be showing positive response. Continue current treatment plan as the patient is showing improvement in mood and energy Monitor for return of suicidal ideation Continue to encourage social interaction, particularly with family members as this appears beneficial Past Medical History Illness, Injuries, Operations, and Treatment: Not provided Previous Psychiatric or Mental Health Treatment: Not provided Previous Psychiatric or Mental Health Hospitalization: Not provided Medication History Brittni Braswell CNM, PMHNP- [address], [place], [address], [facility] 01/22/2025 11:21:33
--- OUTSIDE RECORDS SUMMARY | 2025-03-06 17:41 | XMS_ITS | Data Portability ---
Author Organization [facility], Telehealth (patients home) Address [address] [place] [address] Assessment Encounter Date Assessment Date Assessment LastModified [...] other days waking up hungry. He denies suicidal/homicida l thoughts and hallucinations. He reports progress with obtaining his permit and has an appointment to install an ignition interlock device in his car today. Standardized Scales: PHQ9=23 [email or web address] Not available 02/05/2025 14:40:14 02/18/2025 02/18/2025 Labs and Imaging Visit Summary [...] symptoms and their response to current treatment [email or web address] Not available 02/18/2025 23:06:39 02/20/2025 02/20/2025 Labs and Imaging Visit Summary A 49-year-old male with a history of depression presented for Spravato treatment. He reports obtaining nicotine patches and being prescribed duloxetine but has not started either medication yet. He plans to peanut picker the duloxetine after today's appointment. He reports some improvement in his mental state, noting a little hope is present, though he still experiences feelings of worthlessness and hopelessness. His sleep has improved, reporting over 10 hours of sleep the previous night and no nap yesterday, which appears to be a positive change from his usual pattern. He denies current thoughts of self-harm and reports no thoughts of harming others in the last few days. The treatment plan includes starting duloxetine and using nicotine patches as directed. A follow-up appointment is planned to assess his response to these interventions. Standardized Scales: PHQ9=23 GAD7=21 [email or web address] Not available 02/20/2025 21:39:12 02/27/2025 02/27/2025 Labs and Imaging Visit Summary [...] importance of consistent attendance at treatment sessions [email or web address] Not available 02/27/2025 22:36:34 03/05/2025 03/05/2025 Labs and Imaging Visit Summary A 49-year-old male with depression and feelings of hopelessness was seen today for follow-up. He reports his depression may be getting a little bit better but continues to experience significant hopelessness. He denies current suicidal ideation. He reports becoming overwhelmed and over excited when he has to go out in public and expresses anger toward dumb people, though he denies current intent to harm others. He was able to have a productive day yesterday, cutting and chopping wood. There was discussion about possibly increasing therapy frequency to twice weekly, though it appears this has not yet been fully implemented. The patient demonstrates some insight into his condition. Standardized Scales: PHQ9=20 GAD7=21 Not available 03/05/2025 15:57:13 Plan of Treatment Reminders Order Date Submit Date Provider Last Modified By Organization Details Last Modified Time Details Appointments [facility] 10[facility]30[facility] Not available Not available Not available Lab [...] Severe 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 62871407 Active 2024 Brittni Braswell CNM, [facility]- [address], [place], [address], [facility] 15:57:34 Generalize d anxiety disorder 14821557 Active 2024 Brittni Braswell CNM, [facility] [address], [place], [address], [facility] 13:11:05 Suicidal thoughts 8280259 Active 2024 Brittni Braswell CNM, [facility] [address], [place], [address], [facility] 13:11:32 Severe recurrent major depression 105611246608 Active 2024 Brittni Braswell CNM, [facility] [address], [place], [address], [facility] 21:55:51 Problem Notes None recorded. [...] Details Last Updated DateTime 5 172.72 cm 25.4 kg/m2 11673.9 3 g 97 /min 100 % 100 % 85 /min 90 /min 96 % 96 % 99 % 99 % Jocyavel Calabrese [facility], [place], operated by [facility] 11:23:57 Date Recorded Systolic And Diastolic Systolic And Diastolic Systolic And Diastolic Provider Name and Address Organization Details Last Updated DateTime 02/05/2025 115/72 mm[Hg] 127/78 mm[Hg] 122/82 mm[Hg] Jocy Calabrese [facility], [place], operated by [facility] 02/05/2025 11:23:31 Date Recorded Body height Body mass index (BMI) Body weight Heart rate Oxygen saturation Oxygen saturation in Arterial blood by Pulse oximetry Heart rate Oxygen saturation Oxygen saturation in Arterial blood by Pulse oximetry Heart rate Oxygen saturation Oxygen saturation in Arterial blood by Pulse oximetry Provider Name and Address Organization Details Last Updated DateTime 172.72 cm 26.2 kg/m2 45017.8 9 g 89 /min 99 % 99 % 81 /min 99 % 99 % 77 /min 99 % 99 % Jocyavel Calabrese [facility], [place], operated by [facility] 14:28:52 Date Recorded Systolic And Diastolic Systolic And Diastolic Systolic And Diastolic Provider Name and Address Organization Details Last Updated DateTime 02/18/2025 122/76 mm[Hg] 118/81 mm[Hg] 123/87 mm[Hg] Jocy Calabrese [facility], [place], operated by [facility] 02/18/2025 14:28:45 Date Recorded Body height Body mass index (BMI) Body weight Heart rate Oxygen saturation Oxygen saturation in Arterial blood by Pulse oximetry Heart rate Heart rate Oxygen saturation Oxygen saturation in Arterial blood by Pulse oximetry Oxygen saturation Oxygen saturation in Arterial blood by Pulse oximetry Provider Name and Address Organization Details Last Updated DateTime 172.72 cm 26 kg/m2 40103.3 g 87 /min 97 % 97 % 83 /min 87 /min 99 % 99 % 100 % 100 % Jocyavel Calabrese [facility], [place], operated by [facility] 13:38:20 Date Recorded Systolic And Diastolic Systolic And Diastolic Systolic And Diastolic Provider Name and Address Organization Details Last Updated DateTime 02/20/2025 114/74 mm[Hg] 153/82 mm[Hg] 107/74 mm[Hg] Jocy Calabrese [facility], [place], operated by [facility] 02/20/2025 13:38:03 Date Recorded Body height Body mass index (BMI) Body weight Heart rate Oxygen saturation Oxygen saturation in Arterial blood by Pulse oximetry Heart rate Heart rate Oxygen saturation Oxygen saturation in Arterial blood by Pulse oximetry Oxygen saturation Oxygen saturation in Arterial blood by Pulse oximetry Provider Name and Address Organization Details Last Updated DateTime 172.72 cm 25.8 kg/m2 79414.7 g 86 /min 98 % 98 % 68 /min 82 /min 99 % 99 % 100 % 100 % [facility] 16:13:30 Date Recorded Systolic And Diastolic Systolic And Diastolic Systolic And Diastolic Provider Name and Address Organization Details Last Updated DateTime 02/27/2025 129/76 mm[Hg] 134/89 mm[Hg] 124/84 mm[Hg] [facility] 02/27/2025 16:13:10 Date Recorded Body height Provider Name an d Address Organization Details Last Updated DateTime 03/05/2025 172.72 cm [facility] 03/05/2025 09:11:29 Social History Question Answer Notes LastModified by Organizat ion Details LastModified Time Tobacco Smoking Status Current Every Day Smoker Brittni Braswell, NIC, PMHNP- [address] [facility] [address], [place], [address], [facility] 09/20/2024 12:05:26 Are There Any Guns Present In Your Home? Yes Information not available 09/20/2024 Do You Feel Safe In Your Home? Yes [email or web address] Information not available 09/20/2024 How Much Tobacco Do You Smoke? 1 PPD [email or web address] Information not available 09/20/2024 Has Tobacco Cessation Counseling Been Provided? No Information not available 09/20/2024 How Many Years Have You Smoked Tobacco? 35 [email or web address] Information not available 09/20/2024 Sex: Unknown Functional Status Question Answer Note LastModified by Organizat ion Details LastModified Time Do you use any illicit or recreational drugs? No [email or web address] Information not available 09/20/2024 Do you or have you ever used any other forms of tobacco or nicotine? Yes [email or web address] Information not available 09/20/2024 What is your level of alcohol consumption? None [email or web address] Information not available 09/20/2024 Do you or have you ever used e-cigarettes or vape? Never used electronic cigarettes Information not available 09/20/2024 Mental Status Question Answer Note LastModified by Organization D etails LastModified Time Do you feel stressed (tense, restless, nervous, or anxious, or unable to sleep at night)? [id number] [email or web address] Information not available 09/20/2024 Family History Relationship Description Onset Age of this Age Resolved Age Notes LastModified by Organization Details LastModified Time Father Anxiety [email or web address] Not available 09/20/2024 11:47:22 Medical History Condition Response Anxiety Disorder Y Psychiatric/Mental Health Condition Y Depression Y Psychiatric Illness Y High Cholesterol Y Past Encounters Encounter ID Performer Location Encounter Start Date Encounter Closed Date Diagnosis/Indication Diagnosis SNOMED-CT Code Diagnosis ICD10 Code Diagnosis IMO Codes Diagnosis Note [id number] Brittni Braswell CNM, P[facility]- Main Office [address] [place] [address] 09/20/2024 11:17:25 09/21/2024 10:58:38 Severe 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 52611684 F33.2 [id number] Clark presents with severe depressive symptoms including anhedonia, fatigue, poor concentrat ion, feelings of worthlessn ess, and passive suicidal ideation. He reports a long history of depression with inadequate response to multiple medication trials over four years of treatment. His PHQ-9 score is 27, indicating severe depression . We discussed Spravato (esketamin e) nasal spray as a treatment option for treatment- resistant depression . Submit prior authorizat ion request to [place] insurance for Spravato treatment Plan to initiate Spravato treatment with two sprays at first visit, potentiall y increasing to three sprays at subsequent visits if tolerated Treatment schedule will be twice weekly for the first month, then weekly Each treatment session will last approximat jimbo 2-2.5 hours with monitoring Patient must have a ride home after each treatment Continue current medication s: Adderall 20 mg twice daily, quetiapine , paroxetine , aripiprazo le 15 mg, and clonazepam Obtain complete medication history from current provider to document adequate trials of antidepres sants Generalize d anxiety disorder [id number] F41.1 [id number] Clark reports significan t anxiety symptoms including constant hypervigil ance, social isolation, and inability to be in crowds. He describes being in fight or flight mode constantly and reports that his anxiety medication (clonazepa m) doesn't work real good and doesn't last very long.Cont inue current anxiety medication (clonazepa m)Monitor anxiety symptoms during Spravato treatment, as treatment may help with both depression and anxietyDis cuss potential medication adjustment s at follow-up visits if anxiety remains poorly controlled Suicidal thoughts 397732 6 R45.326 [id number] Clark reports chronic passive suicidal thoughts without current intent or plan. He has a history of one psychiatri c hospitaliz ation around 2009 for suicidal ideation.M onitor suicidal ideation closely during treatmentA ssess risk factors at each visit, including access to firearms (patient reports having guns in his home)Discu ss safety planning and importance of reaching out if thoughts worsen [id number] Brittni Braswell CNM, [facility] Main Office [address] [place] [address] 10/09/2024 13:16:36 10/10/2024 06:28:06 Severe 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 [id number] F33.2 [id number] Clark presents with severe depressive symptoms including anhedonia, fatigue, poor concentrat ion, feelings of worthlessn ess, and passive suicidal ideation. He reports a long history of depression with inadequate response to multiple medication trials over four years of treatment. His PHQ-9 score is 27, indicating severe depression . We discussed Spravato (esketamin e) nasal spray as a treatment option for treatment- resistant depression .1226PM Spravato 28mg given intranasal ly and repeated at 1231PM, SAO2 98-99%Jaso n did well with therapy. no dissociati on with treatmentV ss before, during, and after therapy. .Quincy brought Clark to his visit and is here to take home.Disch arge home at stable at 2:31pm. 131minutes total time [id number] Brittni Braswell CNM, [facility] Main Office [address] [facility] [place] [address] 10/12/2024 09:11:56 10/15/2024 06:28:23 Severe 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 [id number] F33.2 [id number] 0818PM Spravato 28mg given intranasal ly and repeated at 0823PM, 3rd dose given at 0828PM SAO2 97-99%Jaso n did well with therapy. no dissociati on with treatment. Did states having some feeling of feeling drunkVss before, during, and after therapy. .Mynor brought Clark to his visit and is here to take home.Disch arge home at stable at 1035pm. 145minutes total time [id number] Brittni Braswell CNM, [facility] Main Office [address] [place] [address] 10/15/2024 09:03:29 10/16/2024 06:35:09 Severe 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 81562491 F33.2 [id number] 0805 Spravato 28mg given intranasal ly and repeated at 0811, 3rd dose given at 0816 SAO2 98-99%Jaso n did well with therapy. no dissociati on with treatment. Did states having some feeling of feeling drunkVss before, during, and after therapy. .Quincy brought Clark to his visit and is here to take home.Disch arge home at 1017. 137minutes total time [id number] Brittni Braswell CNM, [facility] Main Office [address] [place] [address] 10/17/2024 09:02:24 10/22/2024 06:39:37 Severe 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 26015622 F33.2 54320012 4918184 8640 Spravato 28mg given intranasal ly and repeated at 0821, 3rd dose given at 0826 SAO2 98-99%Jaso n did well with therapy. no dissociati on with treatment. Did states having some feeling of feeling drunkVss before, during, and after therapy. .Domingo brought Clark to his visit and is here to take home.Disch arge home at 1030. 135minutes total time [id number] Brittni Braswell CNM, [facility] Main Office [address] [place] [address] 10/22/2024 10:25:36 10/23/2024 06:26:47 Severe 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 57830474 F33.2 11953188 0953 Spravato 28mg given intranasal ly and repeated at 0958, 3rd dose given at 1005 SAO2 98-99%Jaso n did well with therapy. no dissociati on with treatment. Vss before, during, and after therapy. .Quincy brought Clark to his visit and is here to take home.Disch arge home at 1205. 153 minutes total timereturn on tuesday for next treatment Suicidal thoughts 644321 6 R45.740 [id number] Clark reports chronic passive suicidal thoughts without current intent or plan. He has a history of one psychiatri c hospitaliz ation around 2009 for suicidal ideation.t o text 988 call 911 or go to the nearest hospital if SI increases [id number] Brittni Braswell CNM, [facility]- Main Office [address] [place] [address] 10/24/2024 09:04:47 10/25/2024 06:32:42 Severe 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 81119930 F33.2 [id number] The patient continues to experience significan t depressive symptoms including feelings of hopelessne ss and passive suicidal thoughts without intent or plan. I assessed his safety, and he confirmed he can keep himself safe. There appears to be minimal improvemen t in her sleep patterns, which may indicate some response to current treatment. Continue current medication regimen with dose adjustment (next dose due shortly after this session)Mo nitor for changes in suicidal ideation and ensure safetyFoll ow up to assess response to treatment0 814 Spravato 28mg given intranasal ly and repeated at 0819, 3rd dose given at 0824 SAO2 98-99%Jaso n did well with therapy. no dissociati on with treatment. Vss before, during, and after therapy. .Quincy brought Clark to his visit and is here to take home.Disch arge home at 1027. 149 minutes total timereturn on Tuesday for next treatment [id number] Brittni Braswell CNM, [facility]- Main Office [address] [place] [address] 10/29/2024 09:01:20 10/30/2024 06:34:03 Severe 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 72869251 F33.2 [id number] The patient continues to experience significan t depressive symptoms including feelings of hopelessne ss and passive suicidal thoughts without intent or plan. I assessed his safety, and he confirmed he can keep himself safe. There appears to be minimal improvemen t in his sleep patterns, which may indicate some response to current treatment. Continue current medication regimen with dose adjustment (next dose due shortly after this session)Mo nitor for changes in suicidal ideation and ensure safetyFoll ow up to assess response to treatment0 804 Spravato 28mg given intranasal ly and repeated at 0809, 3rd dose given at 0814 SAO2 99%Clark did well with therapy. no dissociati on with treatment. Vss before, during, and after therapy. .Quincy brought Clark to his visit and is here to take home.Disch arge home at 1014. 130 minutes total timereturn on tuesday for next treatment [id number] Brittni Braswell CNM, [facility]- Main Office [address] [place] [address] 10/31/2024 09:01:16 11/01/2024 06:34:45 Severe 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 74567336 F33.2 [id number] Clark presented with anxiety and worsening feelings of worthlessn ess, hopelessne ss, and helplessne ss. We discussed that sometimes symptoms can worsen before they improve with treatment. I noted his decreased physical activity and encouraged him to work on increasing this, while acknowledg ing her good habit of sitting outside for vitamin D exposure, which is beneficial for mental health. Continue current medication regimenMon itor for changes in suicidal ideation and ensure safetyFoll ow up to assess response to treatment0 811 Spravato 28mg given intranasal ly and repeated at 0816, 3rd dose given at 0821 SAO2 98-99%Brody n did well with therapy. no dissociati on with treatment. Vss before, during, and after therapy. .Quincy brought Clark to his visit and is here to take home.Disch arge home at 1024. 132 minutes total timereturn on tuesday for next treatment [id number] Brittni Braswell CNM, [facility] Main Office [address] [place] [address] 11/05/2024 08:58:49 11/06/2024 06:28:12 Severe 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 43875361 F33.2 [id number] The patient continues to experience significan t depressive symptoms including persistent low mood, feelings of worthlessn ess, hopelessne ss, and passive suicidal ideation. He reports no improvemen t in his symptoms since the last visit. He is sleeping excessivel y (10-12 hours at night plus daytime naps), which may be a symptom of his depression . I discussed the importance of continuing treatment to improve his mood and outlook.Co ntinue current medication regimen (medicatio n was due at time of appointmen t)Monitor for changes in suicidal ideation, emphasizin g the need to contact emergency services if thoughts become activeFoll ow up in weeks to reassess response to treatment Continue current medication regimenMon itor for changes in suicidal ideation and ensure safetyFoll ow up to assess response to treatment0 810 Spravato 28mg given intranasal ly and repeated at 0815, 3rd dose given at 0820 SAO2 98-100%Kyree on did well with therapy. no dissociati on with treatment. Vss before, during, and after therapy. .Quincy brought Clark to his visit and is here to take home.Disch arge home at 1020. 131minutes total timereturn on Tuesday for next treatment [id number] Brittni Braswell CNM, [facility] Main Office [address] [place] [address] 11/07/2024 09:06:14 11/08/2024 06:33:02 Severe 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 39014577 F33.2 [id number] Assessment and Plan 1. Depression with Passive Suicidal Ideation: The patient reports feeling a little optimistic with some improvemen t in feelings of worthlessn ess after accomplish ing tasks. However, she continues to experience passive suicidal thoughts and expresses frustratio n about not seeing the results she expected. She is sleeping about 12 hours per night and still taking naps. Her appetite has slightly increased without weight gain. Continue current treatment frequency of twice weekly sessions for an extended period before transition ing to once weekly Recommende d getting outside and getting sun exposure for vitamin D Encouraged engagement in therapy Continue follow-up with psychiatri c nurse practition er at the beginning of each month Monitor for changes in mood, particular ly any worsening of depressive symptoms or suicidal ideation Continue current medication regimenMon itor for changes in suicidal ideation and ensure safetyFoll ow up to assess response to treatment0 806 Spravato 28mg given intranasal ly and repeated at 0811, 3rd dose given at 0816. SAO2 94-98%Jaso n did well with therapy. no dissociati on with treatment. Vss before, during, and after therapy. .Quincy brought Clark to his visit and is here to take home.Disch arge home at 1016. 129minutes total timereturn on Tuesday for next treatment [id number] Brittni Braswell CNM, [facility]- Main Office [address] [place] [address] 11/12/2024 09:02:07 11/12/2024 15:46:49 Severe 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 67113861 F33.2 [id number] I discussed with Clark his current mood state and passive thoughts. He reports his mood as okay and notes some improvemen t in his passive thoughts, which still occur daily but are not constant all the time anymore. This represents a positive change in his condition. He was able to engage in activities with his son over the weekend, including walking and playing croquet, which are positive behavioral activation s.Continue current treatment plan with regular sessionsMo nitor improvemen t in passive thoughtsEn courage continued engagement in positive activities with family membersFol low up on PHQ9 score of 27 at next visitConti nue current treatment frequency of twice weekly sessions for an extended period before transition ing to once weeklyReco mmended getting outside and getting sun exposure for vitamin DContinue follow-up with psychiatri c nurse practition er at the beginning of each monthMonit or for changes in mood, particular ly any worsening of depressive symptoms or suicidal ideation Continue current medication regimenMon itor for changes in suicidal ideation and ensure safetyFoll ow up to assess response to treatment0 816 Spravato 28mg given intranasal ly and repeated at 0821, 3rd dose given at 0826. SAO2 95-98%Jaso n did well with therapy. no dissociati on with treatment. Vss before, during, and after therapy. .Quincy brought Clark to his visit and is here to take home.Disch argjade home at 1027 141minutes total timereturn on Tuesday for next treatment Generalize d anxiety disorder [id number] F41.1 [id number] Clark reports significan t anxiety symptoms including constant hypervigil ance, social isolation, and inability to be in crowds. He describes being in fight or flight mode constantly and reports that his anxiety medication (clonazepa m) doesn't work real good and doesn't last very long.Cont inue current anxiety medication (clonazepa m)Monitor anxiety symptoms during Spravato treatment, as treatment may help with both depression and anxietyDis cuss potential medication adjustment s at follow-up visits if anxiety remains poorly controlled [id number] Brittni Braswell CNM, [facility] Main Office [address] [place] [address] 11/14/2024 08:59:03 11/15/2024 06:24:30 Severe 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 45602417 F33.2 [id number] After two more weeks, transition to a less frequent schedule (weekly treatments )Recommend ed continued therapy, though patient is not currently engaged in therapyEnc ouraged continued follow-up with his nurse practition er in [facility] patient to inform his nurse practition er about our treatment planInform ed patient about potential location change with services becoming available in the [facility], which would be more convenient for himFollow up after completing the two additional weeks of induction- phase treatment Continue current medication regimenMon itor for changes in suicidal ideation and ensure safetyFoll ow up to assess response to treatment0 814 Spravato 28mg given intranasal ly and repeated at 0819, 3rd dose given at 0824. SAO2 95-98%Jaso n did well with therapy. no dissociati on with treatment. Vss before, during, and after therapy. .Quincy brought Clark to his visit and is here to take home.Disch argjade home at 1024. 138 minutes total timereturn on Tuesday for next treatment [id number] Brittni Braswell CNM, [facility] Main Office [address] [place] [address] 11/19/2024 13:51:23 11/20/2024 06:23:14 Severe 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 [id number] F33.2 [id number] Clark was seen this am by his [...] on Tuesday for next treatment Suicidal thoughts [id number] R45.263 [id number] Clark reports chronic passive suicidal thoughts without current intent or plan. He has a history of one psychiatri c hospitaliz ation around 2009 for suicidal ideation.t o text 988 call 911 or go to the nearest hospital if SI increases [id number] Brittni Braswell CNM, [facility]HNP- Main Office [address] [place] [address] 11/21/2024 08:57:48 11/22/2024 06:17:31 Severe 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 [id number] F33.2 [id number] Clark is showing signs of improvemen t [...] treatment. Vss before, during, and after therapy. .uQincy brought Clark to his visit and is here to take home.Disch arge home at 1024. 142 minutes total timereturn on Tuesday for next treatment [id number] Brittni Braswell CNM, [facility] Main Office [address] [place] [address] 11/26/2024 09:02:51 11/27/2024 06:20:23 Severe 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 [id number] F33.2 [id number] Patient continues to experience feelings of worthlessn [...] for patient to review before next appointmen tAcknowled geemily the positive signs of engagement in activities despite depression Scheduled follow-up appointmen t for Tuesday, November 28, 2024 0815 Spravato 28mg given intranasal ly and repeated at 0820, 3rd dose given at 0825. SAO2 99%Clark did well with therapy. no dissociati on with treatment. Vss before, during, and after therapy. .Quincy brought Clark to his visit and is here to take home.Disch arge home at 1025. 139minutes total timereturn on Tuesday for next treatment [id number] Brittni Braswell CNM, [facility] Main Office [address] [place] [address] 11/28/2024 09:04:18 11/29/2024 06:29:54 Severe 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 85197128 F33.2 [id number] The patient continues to experience significan t [...] as initially requested by the patientSch daniel chowdhury appointmen t for Tuesday of next weekMonito r suicidal ideation closely at each sessionAft catherine choi one month of weekly sessions, reassess for possible transition to every other week appointmen ts depending on symptom improvemen t 0818 Spravato 28mg given intranasal ly and repeated at 0823, 3rd dose given at 0828. SAO2 98-99%Brody n did well with therapy. no dissociati on with treatment. Vss before, during, and after therapy. .Quincy brought Clark to his visit and is here to take home.Disch arge home at 1029. 144minutes total timereturn on Tuesday for next treatment [id number] Brittni Braswell CNM, [facility] Main Office [address] [place] [address] 12/03/2024 09:01:37 12/04/2024 06:29:14 Severe 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 [id number] F33.2 [id number] I discussed with Clark his improvemen t [...] for next treatment [id number] Brittni Braswell CNM, [facility] Main Office [address] [facility] [place] [address] 12/11/2024 12:40:06 12/12/2024 06:36:21 Severe 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 [id number] F33.2 [id number] Clark continues to experience anxiety symptoms with persistent feelings of worthlessn ess and hopelessne ss, though he reports improvemen t regarding passive suicidal thoughts. We discussed the importance of medication adherence, particular ly with Abilify, which he had inadverten tly discontinu ed [...] for next treatment [id number] Brittni Braswell CNM, [facility] Main Office [address] [facility] [place] [address] 12/19/2024 09:03:23 12/20/2024 06:44:01 Severe 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 44804707 F33.2 [id number] Clark reports improvemen t in his depressive [...] be effective in managing his depressive symptomsEn rock continued medication adherence given the significan t [...] for next treatment [id number] Brittni Braswell CNM, [facility] Main Office [address] [place] [address] 12/25/2024 09:00:36 12/26/2024 06:41:24 Severe 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 27728853 F33.2 [id number] Patient reports feeling anxious today and mentions [...] for next treatment [id number] Brittni Braswell CNM, [facility] Main Office [address] [place] [address] 12/31/2024 09:05:07 01/01/2025 16:42:21 Severe 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 06026469 F33.2 [id number] Clark continues to experience significan t depressive [...] pending insurance coverage Discussed previous [employer] testing (keerthi teague one year ago) and the potential benefits [...] for next treatment [id number] Brittni Braswell CNM, [facility]- Main Office [address] [place] [address] 01/07/2025 09:10:58 01/09/2025 07:41:37 Severe 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 33025912 F33.2 [id number] I discussed with Clark his ongoing symptoms [...] next week as we reassess treatment directionD iscussed possibilit y of [facility] to [place] location when services are establishe d Chante reassess treatment plan at next visit based [...] for next treatment [id number] Brittni Braswell CNM, [facility]- Main Office [address] [place] [address] 01/21/2025 09:10:22 01/24/2025 00:46:29 Severe 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 [id number] F33.2 [id number] I discussed with the patient his recent [...] response to treatmentD iscussed [facility] [place] [facility] services are establishe emily Sharif reassess [...] for next treatment [id number] Brittni Braswell CNM, [facility] Main Office [address] [place] [address] 02/05/2025 09:08:55 02/06/2025 09:22:01 Severe 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 50189149 F33.2 [id number] 0810 Spravato 28mg given intranasal ly and [...] for next treatment [id number] Brittni Braswell CNM, [facility] Main Office [address] [place] [address] 02/18/2025 11:23:59 02/19/2025 08:02:17 Severe 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 73847516 F33.2 [id number] The patient continues to experience significan t [...] here to take home.Disch leno home at 2:48PM, 130minut in 2 weeks for next treatment 90 Brittni Braswell CNM, [facility] Main Office [address] [place] [address] 02/20/2025 11:20:01 02/21/2025 18:16:30 Severe 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 [id number] F33.2 [id number] The patient continues to experience feelings of [...] 10:35, 3rd dose given at 10:40. SAO2 12=502%Kyree on did well with therapy. no dissociati on with treatment. Vss before, during, and after therapy. .Quincy brought Clark to his visit and is here to take home.Disch leno home at 12:40PM, 130minuten ext treatment - Tuesday Brittni Braswell CNM, [facility] Main Office [address] [place] [address] 02/27/2025 11:29:37 02/28/2025 21:20:18 Severe 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 [id number] F33.2 [id number] I discussed with the patient his report of having a crap week and feeling pretty worthless. We noted that he was previously doing better and need to work on returning to that improved state. I assessed for suicidal ideation, which he denied.Con primo current treatment approachMo nitor mood symptoms at [...] at 12:48PM, 132minuten ext treatment - Tuesday Brittni Braswell CNM, PMHNP- Main Office [address] [place] [address] 03/05/2025 09:09:57 03/05/2025 20:18:49 Severe 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 [id number] F33.2 [id number] Clark esquivel continues to experience depression with persistent feelings of hopelessne ss, though he reports his depression may be getting a little bit better. We discussed his current symptoms and emotional state. He denies current suicidal ideation.C ontinue current medication regimen (specific medication s not mentioned in transcript )Spravato treatment twice weeklyMoni tor for changes in mood and hopelessne ssFollow up to assess response to increased therapy frequency2 . Social anxiety/ir ritability in public settings:Bradford gudino reports becoming over excited and overwhelme d when he has to go out in public. He expresses anger toward dumb people but denies current intent to harm others.Con tinue to monitor these symptomsDi scuss coping strategies for managing overwhelmi ng feelings in public settingsAs sess effectiven ess of current treatment approach for these symptomsFo llow up to evaluate progress Continue to monitor PHQ-9 scores to track progress 0815 Spravato 28mg given intranasal ly and repeated at 0820am, 3rd dose given at 0825am. SAO2 97-99%Jaso n did well with therapy. no dissociati on with treatment. Vss before, during, and after therapy. .Quincy brought Clark to his visit and is here to take home.Disch arge home at 12:48PM, 132minuten ext treatment - Health Concerns Section Related Observation LastModified by Organization Detai ls LastModified Time None Recorded Concern Status LastModified by Organization Details LastModified Time None Recorded Advance Directives Directive None Recorded Payers Insurance Date Sequence Insurance Name Policy Number Policy Davidson Covered Member ID Davidson Member ID Guarantor Name 03/06/2025 1 [facility] - DOS ON OR AFTER 2020 - DUAL ELIGIBLE (MEDICARE REPLACEMENT/ ADVANTAGE - HMO) Clark Delarosa [id number] Clark Delarosa Notes Date Note Type Note [...] reports sleep difficulties since the dosage reduction. Brittni Braswell, NIC, PMHNP-BC [address], [place], [address], [facility] 02/05/2025 14:42:57 02/18/2025 text/html History of present illness Clark [...] brother is considering selling his house in [place] and needed help with painting. He reports [...] carcinogenic by the FDA. Brittni Braswell CNM, [facility]- [address] [facility] [address], [place], [address], [facility] 02/18/2025 23:07:52 02/20/2025 text/html History of present illnessSpravato treatment. He mentions that he has obtained nicotine patches and has been prescribed duloxetine, though he has not started either yet. He plans to go to the pharmacy after this appointment to peanut picker the duloxetine. When asked about feelings of worthlessness and hopelessness, he states there is a little hope there, evidenced by his recent purchase on [employer], though he mentions he might cancel the order later. He denies current thoughts of self-harm and reports no thoughts of harming others in the last few days. Regarding his sleep, he reports sleeping over 10 hours the previous night and believes he did not take a nap yesterday, which appears to be an improvement from his usual pattern. Past Medical History Illness, Injuries, Operations, and Treatment: Not provided Previous Psychiatric or Mental Health Treatment: Recently completed rehabilitation Previous Psychiatric or Mental Health Hospitalization: Not provided Medication History Duloxetine - Recently prescribed but not yet started Nicotine patches - Recently obtained but not yet started Brittni Braswell CNM, [facility] [address], [place], [address], [facility] 02/20/2025 21:44:07 02/27/2025 text/html History of present illness Clark [...] or visual hallucinations. He mentions missing the mehrdad borealis display the previous night because he [...] Not provided Medication History Brittni Braswell CNM, [facility] [address], [place], [address], [facility] 02/27/2025 22:42:33 03/05/2025 text/html History of present illness Clark Delarosa is a 49-year-old male who presents today for a follow-up visit. He reports having a pretty productive day yesterday where he cut and chopped some wood. He mentions that he heats his garage with wood Clark continues to experience feelings of hopelessness, stating I'm still feeling pretty hopeless. He indicates that his depression may be getting a little bit better but still struggles with significant symptoms. He denies any current thoughts of harming himself or others. Clark reports that he becomes overwhelmed when he has to go out in public, stating when I go out, though, if I have to go out and do shit, then that's when I get over excited. Overwhelmed. He expresses frustration with other peopleHe mentions wanting to harm dumb people when he gets overwhelmed but has not acted on these thoughts. Past Medical History Illness, Injuries, Operations, and Treatment: Not provided Previous Psychiatric or Mental Health Treatment: Not provided Previous Psychiatric or Mental Health Hospitalization: Not provided Medication History Brittni Braswell, NIC, PMHNP-BC [address], [place], [address], [facility] 03/05/2025 15:58:13
--- OUTSIDE RECORDS SUMMARY | 2025-03-06 17:41 | XMS_ITS | Continuity of Care Document ---
Author Organization [facility], Main Office Address [address] [place] [address] Assessment Encounter Date Assessment Date Assessment LastModified by Organization Details LastModified Time 01/07/2025 01/07/2025 Labs and Imaging Visit Summary A 49-year-old male with depression presented for spravato treatment, reporting continued symptoms with little improvement. He described persistent feelings of worthlessness and hopelessness, excessive sleeping (12-13 hours daily), lack of motivation and energy, social withdrawal, and difficulty concentrating. He denied current suicidal ideation but acknowledged having thoughts of being better off less than half the days. He expressed frustration with his treatment progress and interest in exploring alternative treatments. After discussion, the decision was made to reduce treatment frequency from weekly to every other week to assess impact on his condition. Standardized Scales: PHQ9=24 [email or web address] Not available 01/07/2025 09:48:59 Plan of Treatment Reminders Order Date Submit [...] Severe 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 67561319 Active 2024 Brittni Braswell CNM, PMHNP- [address], [place], [address], [facility] 15:57:34 Generalize d anxiety disorder 23849920 Active 2024 Brittni Braswell CNM, [facility] [address], [place], [address], [facility] 13:11:05 Suicidal thoughts 2459683 Active 2024 Brittni Braswell CNM, [facility] [address], [place], [address], [facility] 13:11:32 Severe recurrent major depression 287161985962 Active 2024 Brittni Braswell CNM, [facility] [address], [place], [address], [facility] 21:55:51 Problem Notes None recorded. Medical Equipment [...] Details Last Updated DateTime 5 172.72 cm 25 kg/m2 32124.8 7 g 76 /min 100 % 100 % 115/74 mm[Hg] Brittni Braswell CNM, [facility] [address], [place], [address], [facility] 5 09:17:53 Date Recorded Heart rate Oxygen saturation Oxygen saturation in Arterial blood by Pulse oximetry Heart rate Oxygen saturation Oxygen saturation in Arterial blood by Pulse oximetry Systolic And Diastolic Systolic And Diastolic Provider Name and Address Organization Details Last Updated DateTime 5 87 /min 97 % 97 % 72 /min 97 % 97 % 97/65 mm[Hg] 108/72 mm[Hg] Jocy Calabrese [facility] 5 11:47:45 Social History Question Answer Notes LastModified by [employer] Details LastModified Time Tobacco Smoking Status Current Every Day Smoker Brittni Braswell CNM, [facility] [address], [place], [address], [facility] 09/20/2024 12:05:26 Are There Any Guns Present In Your Home? Yes [email or web address] Information not available 09/20/2024 Do You Feel Safe In Your Home? Yes [email or web address] Information not available 09/20/2024 How Much Tobacco Do You Smoke? 1 PPD [email or web address] Information not available 09/20/2024 Has Tobacco Cessation Counseling Been Provided? No [email or web address] Information not available 09/20/2024 How Many Years Have You Smoked Tobacco? 35 [email or web address] Information not available 09/20/2024 Sex: Unknown Functional Status Question Answer Note LastModified by Organ[employer] Details LastModified Time Do you use any illicit or recreational drugs? No [email or web address] Information not available 09/20/2024 Do you or have you ever used any other forms of tobacco or nicotine? Yes Information not available 09/20/2024 What is your level of alcohol consumption? None [email or web address] Information not available 09/20/2024 Do you or have you ever used e-cigarettes or vape? Never used electronic cigarettes [email or web address] Information not available 09/20/2024 Mental Status Question Answer Note LastModified by Organization D etails LastModified Time Do you feel stressed (tense, restless, nervous, or anxious, or unable to sleep at night)? [id number] [email or web address] Information not available 09/20/2024 Family History Relationship Description Onset Age of this Age Resolved Age Notes LastModified by Organization Details LastModified Time Father Anxiety [email or web address] Not available 09/20/2024 11:47:22 Medical History Condition Response Depression Y Psychiatric Illness Y Anxiety Disorder Y High Cholesterol Y Psychiatric/Mental Health Condition Y Past Encounters Encounter ID Performer Location Encounter Start Date Encounter Closed Date Diagnosis/Indication Diagnosis SNOMED-CT Code Diagnosis ICD10 Code Diagnosis IMO Codes Diagnosis Note [id number] Brittni Braswell CNM, [facility] Main Office [address] [facility] [place] [address] 12/11/2024 12:40:06 12/12/2024 06:36:21 Severe 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 51536374 F33.2 [id number] Clark continues to experience anxiety symptoms with [...] for next treatment [id number] Brittni Braswell CNM, [facility] Main Office [address] [place] [address] 12/19/2024 09:03:23 12/20/2024 06:44:01 Severe 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 06042496 F33.2 [id number] Clark reports improvemen t in his depressive [...] for next treatment [id number] Brittni Braswell CNM, [facility]- Main Office [address] [place] [address] 12/25/2024 09:00:36 12/26/2024 06:41:24 Severe 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 39301686 F33.2 [id number] Patient reports feeling anxious today and mentions [...] for next treatment [id number] Brittni Braswell CNM, [facility] Main Office [address] [place] [address] 12/31/2024 09:05:07 01/01/2025 16:42:21 Severe 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 78636496 F33.2 [id number] Clark continues to experience significan t depressive [...] management , pending insurance coverage Discussed previous [employer] testing (approxima zahida one year ago) and the potential benefits of updated testing with [employer] Continue to monitor for suicidal ideation and [...] for next treatment [id number] Brittni Braswell CNM, [facility] Main Office [address] [place] [address] 01/07/2025 09:10:58 01/09/2025 07:41:37 Severe 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 35566700 F33.2 [id number] I discussed with Clark his ongoing symptoms [...] reassess treatment directionD iscussed [facility]ibilit [facility] when services are establishe d thereYung reassess treatment plan at next visit based [...] on tuesdayin 2 weeks for next treatment Health Concerns Section Related Observation LastModified by Organization Detai ls LastModified Time None Recorded Concern Status LastModified by Organization Details LastModified Time None Recorded Payers Encounter Date Sequence Insurance Name Policy Number Policy Davidson Covered Member ID Davidson Member ID Guarantor Name 01/07/2025 1 [facility] - DOS ON OR AFTER 2020 - DUAL ELIGIBLE (MEDICARE REPLACEMENT/ ADVANTAGE - HMO) Clark Delarosa [id number] Clark Delarosa Notes Date Note Type Note Provider Name and Address Organization Details Recorded Time 01/07/2025 text/html History of present illness Clark Delarosa is a 49-year-old male who presents for Spravato treatment.. He reports feeling that there has not been much progress with his treatment. He states he has no motivation and no energy and could probably lay on the couch all day if he didn't have obligations. He reports that his mood is so so with some anxiety. He continues to experience feelings of worthlessness and hopelessness at levels similar to previous visits. He reports sleeping 12-13 hours daily, stating I sleep regular at night, but I sleep a lot in the daytime. I'll get out of bed, and then I'll end up on the couch. And there I am for another couple hours. He mentions that he doesn't talk hardly at all anymore and is not around people much. He reports occasional overeating, describing episodes of eating a whole damn thing of ice cream. He expresses frustration with his lack of progress and is considering trying alternative treatments, I'm ready to try something else. Past Medical History Illness, Injuries, Operations, and Treatment: Not provided Previous Psychiatric or Mental Health Treatment: Not provided Previous Psychiatric or Mental Health Hospitalization: Not provided Medication History Brittni Braswell CNM, [facility]NP-BC [address], [place], [address], [facility] 01/07/2025 21:02:27
--- OUTSIDE RECORDS SUMMARY | 2025-03-06 17:41 | XMS_ITS | Encounter Summary ---
Author Organization [facility] Address [address] [place] [address] Care Team Providers Care Ciaio Counter Molder Name Role Phone Bismark Aldana MD Primary Care Provider [phone] None, Provider Primary Care Provider Unavaila ble Encounter Details Date Type Department Care Team (Late st Contact Info) Description 09/23/2018 Abstract [facility] CONVERSION [address] [place] [address] , Generic Conversion, Social History Tobacco Use Types Packs/Day Years Used Date Smoking Tobacco: Never Assessed Sex and Gender Information Value Date Recorded Sex Assigned at Not on file Legal Sex 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
--- OUTSIDE RECORDS SUMMARY | 2025-03-06 17:41 | XMS_ITS | Continuity of Care Document ---
Author Organization [facility], Main Office Address [address] [place] [address] Assessment Encounter Date Assessment Date Assessment LastModified by Organization Details LastModified Time 02/20/2025 02/20/2025 Labs and Imaging Visit Summary A 49-year-old male with a history of depression presented for Spravato treatment. He reports obtaining nicotine patches and being prescribed duloxetine but has not started either medication yet. 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 He reports [...] to these interventions. Standardized Scales: PHQ9=23 GAD7=21 [email or web address] Not available 02/20/2025 21:39:12 Plan of Treatment Reminders Order Date Submit [...] Severe 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 09447251 Active 2024 Brittni Braswell CNM, [facility] [address], [place], [address], [facility] 15:57:34 Generalize d anxiety disorder 16787248 Active 2024 Brittni Braswell CNM, [facility] [address], [place], [address], [facility] 13:11:05 Suicidal thoughts 6876350 Active 2024 Brittni Braswell CNM, [facility] [address], [place], [address], [facility] 13:11:32 Severe recurrent major depression 072700306612 Active 2024 Brittni Braswell CNM, [facility] [address], [place], [address], [facility] 21:55:51 Problem Notes [...] Last Updated DateTime 172.72 cm 26 kg/m2 30437.3 g 87 /min 97 % 97 % 83 /min 87 /min 99 % 99 % 100 % 100 % Jocy Calabrese [facility] 13:38:20 Date Recorded Systolic And Diastolic Systolic And Diastolic Systolic And Diastolic Provider Name and Address Organization Details Last Updated DateTime 02/20/2025 114/74 mm[Hg] 153/82 mm[Hg] 107/74 mm[Hg] Jocy Calabrese [facility] 02/20/2025 13:38:03 Social History Question Answer Notes LastModified by Organizat ion Details LastModified Time Tobacco Smoking Status Current Every Day Smoker Brittni Braswell, NIC, PMHNP- [address] [place], [address] 09/20/2024 12:05:26 Are There Any Guns Present In Your Home? Yes Information not available 09/20/2024 Do You Feel Safe In Your Home? Yes [email or web address] Information not available 09/20/2024 How Much Tobacco Do You Smoke? 1 PPD [email or web address] Information not available 09/20/2024 Has Tobacco Cessation Counseling Been Provided? No [email or web address] Information not available 09/20/2024 How Many Years Have You Smoked Tobacco? 35 Information not available 09/20/2024 Sex: Unknown Functional Status Question Answer Note LastModified by Organizat ion Details LastModified Time Do you use any illicit or recreational drugs? No [email or web address] Information not available 09/20/2024 Do you or have you ever used any other forms of tobacco or nicotine? Yes [email or web address] Information not available 09/20/2024 What is your level of alcohol consumption? None [email or web address] Information not available 09/20/2024 Do you or have you ever used e-cigarettes or vape? Never used electronic cigarettes [email or web address] Information not available 09/20/2024 Mental Status Question Answer Note LastModified by Organization D etails LastModified Time Do you feel stressed (tense, restless, nervous, or anxious, or unable to sleep at night)? [id number] [email or web address] Information not available 09/20/2024 Family History Relationship Description Onset Age of this Age Resolved Age Notes LastModified by Organization Details LastModified Time Father Anxiety [email or web address] Not available 09/20/2024 11:47:22 Medical History Condition Response Anxiety Disorder Y Psychiatric/Mental Health Condition Y Depression Y Psychiatric Illness Y High Cholesterol Y Past Encounters Encounter ID Performer Location Encounter Start Date Encounter Closed Date Diagnosis/Indication Diagnosis SNOMED-CT Code Diagnosis ICD10 Code Diagnosis IMO Codes Diagnosis Note [id number] Brittni Braswell CNM, [facility]- Main Office [address] [place] [address] 01/21/2025 09:10:22 01/24/2025 00:46:29 Severe 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 65032036 F33.2 [id number] I discussed with the patient his recent [...] to assess ongoing response to treatmentD musa mooreibilit y of [facility] when services are establishe emily Sharif reassess treatment plan at next visit based on response to reduced session frequencyC ontinue current treatment plan for depression Monitor improvemen t in passive suicidal thoughts, which have decreased with last occurrence last week. continued social engagement and activities of interest 0820 Spravato 28mg given intranasal ly and repeated at 0825, 3rd dose given at 0830. SAO2 98-99%Brody n did well with therapy. no dissociati on with treatment. Vss before, during, and after therapy. .Quincy brought Clark to his visit and is here to take home.Disch arge home at 1030. 130minutes total timereturn on tuesday in 2 weeks for next treatment [id number] Brittni Braswell CNM, [facility] Main Office [address] [place] [address] 02/05/2025 09:08:55 02/06/2025 09:22:01 Severe 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 26417663 F33.2 0542395 0810 Spravato 28mg given intranasal ly and [...] for next treatment [id number] Brittni Braswell CNM, [facility] Main Office [address] [place] [address] 02/18/2025 11:23:59 02/19/2025 08:02:17 Severe 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 35201592 F33.2 10376243 The patient continues to experience significan t [...] 130minut in 2 weeks for next treatment [id number] Brittni Braswell CNM, [facility]- Main Office [address] [place] [address] 02/20/2025 11:20:01 02/21/2025 18:16:30 Severe 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 47315412 F33.2 [id number] The patient continues to experience feelings of [...] 10:35, 3rd dose given at 10:40. SAO2 81=401%Kyree on did well with therapy. no dissociati on with treatment. Vss before, during, and after therapy. .Quincy brought Clark to his visit and is here to take home.Yaneth burr home at 12:40PM, 130minuten ext treatment - Tuesday Health Concerns Section Related Observation LastModified by Organization Detai ls LastModified Time None Recorded Concern Status LastModified by Organization Details LastModified Time None Recorded Payers Encounter Date Sequence Insurance Name Policy Number Policy Davidson Covered Member ID Davidson Member ID Guarantor Name 02/20/2025 1 [facility] - DOS ON OR AFTER 2020 - DUAL ELIGIBLE (MEDICARE REPLACEMENT/ ADVANTAGE - HMO) Clark Delarosa [id number] Clark Delarosa Notes Date Note Type Note Provider Name and Address Organization Details Recorded Time 02/20/2025 text/html History of present illnessSpravato treatment. He mentions that he has obtained nicotine patches and has been prescribed duloxetine, though he has not started either yet. He plans to go to the pharmacy after this appointment to picket labor union the duloxetine. When asked about feelings of worthlessness and hopelessness, he states there is a little hope there, evidenced by his recent purchase on Zync[employer], though he mentions he might cancel the [...] Recently obtained but not yet started Brittni Braswell, NIC, PMHNP-BC [address], [place], [address], [facility] 02/20/2025 21:44:07
--- OUTSIDE RECORDS SUMMARY | 2025-03-06 17:41 | XMS_ITS | Clinical Summary ---
Author Organization [facility] Address [address] [place] [address] Care Team Providers Care Professional Advisor Name Role Phone None, Provider MD Primary Care Provider Unavaila ble Allergies No known active allergies Medications ibuprofen 200 MG tablet Take 200 mg by mouth every 6 (six) hours as needed for Pain. Active DULoxetine 20 MG capsule Take 20 mg by mouth daily. Active QUEtiapine 100 MG tablet Take 1 tablet (100 mg total) by mouth nightly at bedtime. Active propranolol 60 MG tablet Take 60 mg by mouth 2 (two) times daily. Active hydrOXYzine 25 MG capsule Take 25 mg by mouth 3 (three) times daily as needed for Itching. Active ARIPiprazole (ABILIFY) 10 MG tablet Take 1 tablet (10 mg total) by mouth daily. 4 Active venlafaxine (EFFEXOR) 75 MG tablet Take 1 tablet (75 mg total) by mouth daily. 4 Active prazosin (MINIPRESS) 1 MG capsule TAKE 1 CAPSULE BY MOUTH DAILY AT BEDTIME NEEDED FOR INSOMNIA 4 Active LORazepam (ATIVAN) 0.5 MG tablet Take 1 tablet (0.5 mg total) by mouth daily as needed for Anxiety. 4 Active amphetamine-dex troamphetamine (ADDERALL) 20 MG tablet TAKE 1 TABLET BY MOUTH IN THE MORNING AND IN THE AFTERNOON AND 5 HOURS APART 4 Active Active Problems Problem Noted Date Diagnosed Date Lisfranc's sprain, right, subsequent encounter 0 06/22/2019 Closed fracture of base of m etatarsal bone, right, with routine healing, subsequent encounter 06/22/2019 Closed nondisplaced fracture of medial cuneiform of right foot with routine healing, subsequent encounter 06/22/2019 Closed nondisplaced fracture of lateral cuneiform of right foot with routine healing, subsequent encounter 06/22/2019 Closed nondisplaced fracture of intermediate cuneiform of right foot with routine healing, subsequent encounter 06/22/2019 Immunizations Immunization Administration Dates Next Due Tdap (Boostrix) 12/29/2023 Family History Medical History Relation Comments Cancer Father Diabetes Mother Heart Disease Mother Relation Status Comments Father Mother Alive Social History Tobacco Use Types Packs/Day Years Used Date Smoking Tobacco: Every Day Cigarettes 2 20 Smokeless Tobacco: Never Tobacco Cessation:Ready to Q uit: No; Counseling Given: No Alcohol Use Standard Drinks/Week Comments Yes 180 (1 standard drink = 0.6 oz p ure alcohol) Sex and Gender Information Value Date Recorded Sex Assigned at Not on file Legal Sex Male 5:51 PM [employer] Gender Identity Not on file Sexual Orientation Not on file Last Filed Vital Signs Vital Sign Reading Time Taken Comments Blood Pressure 120/78 12/29/2023 12:15 PM CDT Pulse 82 12/29/2023 12:15 PM CDT Temperature 36.7 C (98 F) 12/29/2023 11:21 AM CDT Respiratory Rate 16 12/29/2023 12:1 5 PM CDT Oxygen Saturation 99% 12/29/2023 12: 15 PM CDT Inhaled Oxygen Concentration - - Weight 76.1 kg (167 lb 12.8 oz) 024 11:21 AM CDT Height 172.7 cm (5' 8) 12/29/2023 11:2 1 AM CDT Body Mass Index 25.51 12/29/2023 11:21 AM CDT Plan of Treatment Health Maintenance Due Date Last Done Comments Colorectal Cancer Screening Colonoscopy (10 Years) 1974 Annual Physical 1977 Hepatitis C 1992 Hepatitis B Vaccines (1 of 3 - 19+ 3-dose series) 1993 Pneumococcal Vaccine: 50+ Ye ars (1 of 2 - PCV) 1993 Zoster Vaccines (1 of 2) 2024 COVID-19 Vaccine (1 - 2024-2 6 season) 2024 Influenza Adult (#1) 2025 DTaP, Tdap and Td Vaccines ( 2 - Td or Tdap) 12/28/2033 12/29/2023 Hepatitis A Vaccines Aged Out No long er eligible based on patient's age to complete this topic Meningococcal B Vaccine Aged Out No l onger eligible based on patient's age to complete this topic Meningococcal Vaccine Aged Out No matt mabel eligible based on patient's age to complete this topic RSV Immunizations Under 20 Months Aged Out No longer eligible based on patient's age to complete this topic Insurance Care Teams Professional Advisor Relationship Specialty Start Date End Date None, Provider, PCP - General UNKNOWN PHYSICIAN SPECIALTY 12/29/23
--- OUTSIDE RECORDS SUMMARY | 2025-03-06 17:42 | XMS_ITS | Continuity of Care Document ---
Author Organization [facility], Main Office Address [address] [place] [address] Assessment Encounter Date Assessment Date Assessment LastModified by Organization Details LastModified Time 03/05/2025 03/05/2025 Labs and Imaging Visit Summary [...] into his condition. Standardized Scales: PHQ9=20 GAD7=21 [email or web address] Not available 03/05/2025 15:57:13 Plan of Treatment [...] Severe 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 81511402 Active 2024 Brittni Braswell, NIC, PMHNP-BC [address], [place], [address], [facility] 15:57:34 Generalize d anxiety disorder 61044737 Active 2024 Brittni Braswell CNM, [facility] [address], [place], [address], [facility] 13:11:05 Suicidal thoughts 8145301 Active 2024 Brittni Braswell CNM, [facility] [address], [place], [address], [facility] 13:11:32 Severe recurrent major depression 363719592848 Active 2024 Brittni Braswell CNM, [facility] [address], [place], [address], [facility] 21:55:51 Problem Notes None recorded. [...] t Available Vitals Date Recorded Body height Provider Name an d Address Organization Details Last Updated DateTime 03/05/2025 172.72 cm Jocy Calabrese [place] - [facility] 03/05/2025 09:11:29 Social History Question Answer Notes LastModified by [email or web address] Details LastModified Time Tobacco Smoking Status Current Every Day Smoker Brittni Braswell CNM, [facility] [address], [place], [address], [facility] 09/20/2024 12:05:26 Are There Any Guns Present In Your Home? Yes Information not available 09/20/2024 Do You Feel Safe In Your Home? Yes [email or web address] Information not available 09/20/2024 How Much Tobacco Do You Smoke? 1 PPD [email or web address] Information not available 09/20/2024 Has Tobacco Cessation Counseling Been Provided? No Information not available 09/20/2024 How Many Years Have You Smoked Tobacco? 35 [email or web address] Information not available 09/20/2024 Sex: Unknown Functional Status Question Answer Note LastModified by [email or web address] Details LastModified Time Do you use any illicit or recreational drugs? No [email or web address] Information not available 09/20/2024 Do you or have you ever used any other forms of tobacco or nicotine? Yes [email or web address] Information not available 09/20/2024 What is your level of alcohol consumption? None [email or web address] Information not available 09/20/2024 Do you or have you ever used e-cigarettes or vape? Never used electronic cigarettes [email or web address] Information not available 09/20/2024 Mental Status Question Answer Note LastModified by Organization D etails LastModified Time Do you feel stressed (tense, restless, nervous, or anxious, or unable to sleep at night)? [id number] Information not available 09/20/2024 Family History Relationship Description Onset Age of this Age Resolved Age Notes LastModified by Organization Details LastModified Time Father Anxiety [email or web address] Not available 09/20/2024 11:47:22 Medical History Condition Response Depression Y Anxiety Disorder Y High Cholesterol Y Psychiatric/Mental Health Condition Y Psychiatric Illness Y Past Encounters Encounter ID Performer Location Encounter Start Date Encounter Closed Date Diagnosis/Indication Diagnosis SNOMED-CT Code Diagnosis ICD10 Code Diagnosis IMO Codes Diagnosis Note [id number] Brittni Braswell CNM, [facility] Main Office [address] [facility] [place] [address] 02/05/2025 09:08:55 02/06/2025 09:22:01 Severe 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 97293146 F33.2 8807441 0810 Spravato 28mg given intranasal ly and repeated at 0815, 3rd dose given at 0820. SAO2 98-99%Brody n did well with therapy. no dissociati on with treatment. Vss before, during, and after therapy. .Quincy brought Clark to his visit and is here to take home.Disch arge home at 1020. 130minutes total timereturn on tuesday in 2 weeks for next treatment [id number] Brittni Braswell CNM, [facility] Main Office [address] [facility] [place] [address] 02/18/2025 11:23:59 02/19/2025 08:02:17 Severe 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 33197952 F33.2 [id number] The patient continues to experience significan t [...] for next treatment [id number] Brittni Braswell CNM, [facility] Main Office [address] [place] [address] 02/20/2025 11:20:01 02/21/2025 18:16:30 Severe 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 89306689 F33.2 71787425 The patient continues to experience feelings of [...] 10:35, 3rd dose given at 10:40. SAO2 38=232%Kyree on did well with therapy. no dissociati on with treatment. Vss before, during, and after therapy. .Quincy brought Clark to his visit and is here to take home.Disch arge home at 12:40PM, 130minuten ext treatment - Tuesday Brittni Braswell CNM, PMHNP- Main Office [address] [place] [address] 02/27/2025 11:29:37 02/28/2025 21:20:18 Severe 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 43483482 F33.2 [id number] I discussed with the patient his report [...] here to take home.Disch argjade home at 12:48PM, 132minuten ext treatment - Tuesday Brittni Braswell CNM, PMHNP- Main Office [address] [place] [address] 03/05/2025 09:09:57 03/05/2025 20:18:49 Severe 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 75468002 F33.2 [id number] Clark esquivel continues to experience depression with [...] here to take home.Disch argjade home at 12:48PM, 132minuten ext treatment - Health Concerns Section Related Observation LastModified by Organization Marty woodruff LastModified Time None Recorded Concern Status LastModified by Organization Details LastModified Time None Recorded Payers Encounter Date Sequence Insurance Name Policy Number Policy Davidson Covered Member ID Davidson Member ID Guarantor Name 03/05/2025 1 [facility] - DOS ON OR AFTER 2020 - DUAL ELIGIBLE (MEDICARE REPLACEMENT/ ADVANTAGE - HMO) Clark Delarosa [id number] Clark Delarosa Notes Date Note Type Note Provider Name and Address Organization Details Recorded Time 03/05/2025 text/html History of present illness Clark [...] Medication History Brittni Braswell CNM, PMHNP-BC [address], [place], [address], [facility] 03/05/2025 15:58:13
--- OUTSIDE RECORDS SUMMARY | 2025-03-06 17:42 | XMS_ITS | Continuity of Care Document ---
Author Organization [facility], Main Office Address [address] [place] [address] Assessment Encounter Date Assessment Date Assessment LastModified by Organization Details LastModified Time 12/11/2024 12/11/2024 Labs and Imaging Visit Summary A 49-year-old male with psychiatric history presenting for Spravato treatment. He reports continued anxiety symptoms with no significant change in feelings of worthlessness or hopelessness. He notes improvement regarding passive suicidal thoughts, which he has not experienced since his last visit approximately one week ago. Sleep patterns show slight improvement. The patient identified that he had inadvertently stopped taking his Abilify when the pharmacy was out of stock and he forgot to follow up. He has now restarted the medication and attributes his low activity level to the lapse in medication. He plans to see his nurse practitioner in early December (around the -). Despite his mental health challenges, he remains engaged with family responsibilities and plans to help his brother who is going through a divorce with various household tasks over the weekend. Standardized Scales: [id number] Not available 12/11/2024 15:13:27 Plan of Treatment Reminders Order Date Submit [...] Severe 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 02741997 Active 2024 Brittni Braswell CNM, PMHNP-BC [address], [place], [address], [facility] 15:57:34 Generalize d anxiety disorder 01827769 Active 2024 Brittni Braswell CNM, [facility] [address], [place], [address], [facility] 13:11:05 Suicidal thoughts 8019053 Active 2024 Brittni Braswell CNM, [facility] [address], [place], [address], [facility] 13:11:32 Severe recurrent major depression 242018457170 Active 2024 Brittni Braswell CNM, [facility] [address], [place], [address], [facility] 21:55:51 Problem Notes [...] Last Updated DateTime 172.72 cm 24.8 kg/m2 63345.8 4 g 74 /min 100 % 100 % 108/75 mm[Hg] Jocy Calabrese [facility] 12:41:04 Social History Question Answer Notes LastModified by [employer] Details LastModified Time Tobacco Smoking Status Current Every Day Smoker Brittni Braswell, NIC, PMHNP- [address], [place], [address], [facility] 09/20/2024 12:05:26 Are There Any Guns Present In Your Home? Yes [email or web address] Information not available 09/20/2024 Do You Feel Safe In Your Home? Yes [email or web address] Information not available 09/20/2024 How Much Tobacco Do You Smoke? 1 PPD [email or web address] Information not available 09/20/2024 Has Tobacco Cessation Counseling Been Provided? No [email or web address] Information not available 09/20/2024 How Many Years Have You Smoked Tobacco? 35 [email or web address] Information not available 09/20/2024 Sex: Unknown Functional Status Question Answer Note LastModified by [employer] Details LastModified Time Do you use any illicit or recreational drugs? No [email or web address] Information not available 09/20/2024 Do you or have you ever used any other forms of tobacco or nicotine? Yes [email or web address] Information not available 09/20/2024 What is your level of alcohol consumption? None Information not available 09/20/2024 Do you or have you ever used e-cigarettes or vape? Never used electronic cigarettes [email or web address] Information not available 09/20/2024 Mental Status Question Answer Note LastModified by Organization D etails LastModified Time Do you feel stressed (tense, restless, nervous, or anxious, or unable to sleep at night)? [id number] [email or web address] Information not available 09/20/2024 Family History Relationship Description Onset Age of this Age Resolved Age Notes LastModified by Organization Details LastModified Time Father Anxiety [email or web address] Not available 09/20/2024 11:47:22 Medical History Condition Response Depression Y Anxiety Disorder Y High Cholesterol Y Psychiatric/Mental Health Condition Y Psychiatric Illness Y Past Encounters Encounter ID Performer Location Encounter Start Date Encounter Closed Date Diagnosis/Indication Diagnosis SNOMED-CT Code Diagnosis ICD10 Code Diagnosis IMO Codes Diagnosis Note [id number] Brittni Braswell CNM, [facility]- Main Office [address] [place] [address] 11/12/2024 09:02:07 11/12/2024 15:46:49 Severe 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 92964582 F33.2 [id number] I discussed with Clark his current mood [...] here to take home.Disch arge home at 1027 141minutes total timereturn on Tuesday for next treatment Generalize d anxiety disorder 33803461 F41.1 [id number] Clark reports significan t anxiety symptoms including [...] follow-up visits if anxiety remains poorly controlled [id number] Brittni Braswell CNM, [facility] Main Office [address] [place] [address] 11/14/2024 08:59:03 11/15/2024 06:24:30 Severe 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 38331435 F33.2 01081910 After two more weeks, transition to a less frequent schedule (weekly treatments )Recommend ed continued therapy, though patient is not currently engaged in therapyEnc ouraged continued follow-up with his nurse practition er in [facility] sked patient to inform his nurse practition er about our treatment planInform ed patient about potential location change with services becoming available in the [facility], which would be more convenient for himFollow up after completing the two additional weeks of induction- phase treatment Continue current medication regimenMon itor for changes in suicidal ideation and ensure safetyFoll ow up to assess response to treatment0 814 Spravato 28mg given intranasal ly and repeated at 0819, 3rd dose given at 0824. SAO2 95-98%Brody n did well with therapy. no dissociati on with treatment. Vss before, during, and after therapy. .Quincy brought Clark to his visit and is here to take home.Disch arge home at 1024. 138 minutes total timereturn on Tuesday for next treatment [id number] Brittni Braswell CNM, [facility] Main Office [address] [place] [address] 11/19/2024 13:51:23 11/20/2024 06:23:14 Severe 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 02297746 F33.2 [id number] Clark was seen this am by his [...] on Tuesday for next treatment Suicidal thoughts 487732 6 R45.931 [id number] Clark reports chronic passive suicidal thoughts without current intent or plan. He has a history of one psychiatri c hospitaliz ation around 2009 for suicidal ideation.t o text 988 call 911 or go to the nearest hospital if SI increases [id number] Brittni Braswell CNM, [facility] Main Office [address] [facility] [place] [address] 11/21/2024 08:57:48 11/22/2024 06:17:31 Severe 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 82322952 F33.2 [id number] Clark is showing signs of improvemen t [...] to take home.Disch argjade home at 1024. 142 minutes total timereturn on Tuesday for next treatment [id number] Brittni Braswell CNM, [facility] Main Office [address] [place] [address] 11/26/2024 09:02:51 11/27/2024 06:20:23 Severe 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 13791346 F33.2 01853475 Patient continues to experience feelings of worthlessn [...] for next treatment [id number] Brittni Braswell CNM, [facility]- Main Office [address] [place] [address] 11/28/2024 09:04:18 11/29/2024 06:29:54 Severe 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 60880279 F33.2 40308499 [id number] The patient continues to experience significan t [...] weekMonito r suicidal ideation closely at each sessionPhil choi one month of weekly sessions, reassess [...] for next treatment [id number] Brittni Braswell CNM, [facility] Main Office [address] [facility] [place] [address] 12/03/2024 09:01:37 12/04/2024 06:29:14 Severe 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 16369820 F33.2 [id number] I discussed with Clark his improvemen t [...] for next treatment [id number] Brittni Braswell CNM, [facility] Main Office [address] 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 65222021 F33.2 [id number] Clark continues to experience anxiety symptoms with [...] total timereturn on tuesday for next treatment Health Concerns Section Related Observation LastModified by Organization Detai ls LastModified Time None Recorded Concern Status LastModified by Organization Details LastModified Time None Recorded Payers Encounter Date Sequence Insurance Name Policy Number Policy Davidson Covered Member ID Davidson Member ID Guarantor Name 12/11/2024 1 [facility] - DOS ON OR AFTER 2020 - DUAL ELIGIBLE (MEDICARE REPLACEMENT/ ADVANTAGE - HMO) Clark Delarosa [id number] Clark Delarosa Notes Date Note Type Note Provider Name and Address Organization Details Recorded Time 12/11/2024 text/html History of present illness Clark Delarosa is a 49-year-old male presenting for a follow-up psychiatric visit. He reports that his anxiety symptoms persist. When asked about thoughts of worthlessness and hopelessness, he indicated no significant change since his last visit. He reports that he has not had passive thoughts of self-harm since his last visit approximately one week ago, which he considers a significant improvement. He denies any thoughts of harming others or experiencing hallucinations. Regarding sleep, he states it's about the same but notes it seems like it's getting a little bit better. He reports going to bed around 8:00 PM the previous night and not getting up until 9:00-9:30 AM the next morning. He describes his activity level as low and attributes this to issues with his Abilify medication, which he realized he had not been taking. He explains that the pharmacy had not filled it due to being out of stock, and it slipped his mind until recently when he noticed his activity level had decreased significantly. He believes the Abilify made a huge difference for him. He mentions he will likely see his nurse practitioner at the beginning of the month, estimating around the 7th or 10th, and typically receives a text reminder about a week before appointments. For the weekend, he plans to help his youngest brother who is going through a divorce. 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 Past Medical History Illness, Injuries, Operations, and Treatment: Not provided Previous Psychiatric or Mental Health Treatment: Not provided Previous Psychiatric or Mental Health Hospitalization: Not provided Medication History Abilify - Patient reports he has been on this medication for a long time but recently realized he had not been taking it because the pharmacy was out of stock and he forgot to follow up. He has now restarted the medication. Brittni Braswell CNM, PMHNP-BC [address], [place], [address], [facility] [place] 12/11/2024 15:15:35
== END 2025-03-06 12:11 | disposition home or self-care (01) ==
PROVIDERS: PCP Nurse Practitioner Family; Visit Provider Internal Medicine Hematology
DX: D72.829 Elevated white blood cell count, unspecified (principal)
CPT/HCPCS: 36415; 85025; 85652; 86140

== ENCOUNTER 2025-03-18 14:16 | Outpatient (CLI) | payer OTHER, SELFPAY ==
--- OUTSIDE RECORDS SUMMARY | 2025-03-18 15:19 | XMS_ITS | Continuity of Care Document ---
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 Referral None recorded. Procedures None recorded. Surgeries None recorded. Imaging None recorded. Medication Orders None recorded. Patient TargetsNo targets recorded. Patient Instructions Encounter Date Encounter Id Patient Instructions Last Modified By Organization Details Last Modified Time 01/21/2025 [id number] depression treatment: care instructions [email or web address] Not available 01/22/2025 11:21:29 Reason for Referral None Reported. 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 27438367 Active 2024 Brittni Braswell CNM, [facility] [address], [place], [address], [facility] 11:39:02 Generalize d anxiety disorder 75674942 Active 2024 Brittni Braswell CNM, [facility] [address], [place], [address], [facility] 13:11:05 Suicidal thoughts 1365047 Active 2024 Brittni Braswell CNM, [facility] [address], [place], [address], [facility] 13:11:32 Severe recurrent major depression 757247309010 Active 2024 Brittni Braswell CNM, [facility] [address], [place], [address], [facility] 21:55:51 Problem Notes None [...] (BMI) Body weight Heart rate Oxygen saturation Heart rate Oxygen saturation Heart rate Oxygen saturation Systolic And Diastolic Systolic And Diastolic Systolic And Diastolic Provider Name and Address Organization Details Last Updated DateTime 172.72 cm 25.2 kg/m2 49956.3 3 g 88 /min 99 % 86 /min 98 % 81 /min 99 % 127/86 mm[Hg] 118/78 mm[Hg] 99/69 mm[Hg] Jocy Calabrese [facility] 11:57:56 Social History Question Answer Notes LastModified by [employer] Details LastModified Time Tobacco Smoking Status Current Every Day Smoker Brittni Braswell, NIC, PMP- [address], [place], [address], [facility] 09/20/2024 12:05:26 Are There Any Guns Present In Your Home? Yes [email or web address] Information not available 09/20/2024 Do You Feel Safe In Your Home? Yes [email or web address] Information not available 09/20/2024 How Much Tobacco Do You Smoke? 1 PPD [email or web address] Information not available 09/20/2024 Has Tobacco Cessation Counseling Been Provided? No [email or web address] Information not available 09/20/2024 How Many Years Have You Smoked Tobacco? 35 [email or web address] Information not available 09/20/2024 Sex: Unknown Functional Status Question Answer Note LastModified by Organizat ion Details LastModified Time Do you use any illicit or recreational drugs? No [email or web address] Information not available 09/20/2024 Do you or have you ever used any other forms of tobacco or nicotine? Yes [email or web address] Information not available 09/20/2024 What is your level of alcohol consumption? None [email or web address] Information not available 09/20/2024 Do you or have you ever used e-cigarettes or vape? Never used electronic cigarettes Information not available 09/20/2024 Mental Status Question Answer Note LastModified by Organization D etails LastModified Time Do you feel stressed (tense, restless, nervous, or anxious, or unable to sleep at night)? [id number] [email or web address] Information not available 09/20/2024 Family History Relationship Description Onset Age of this Age Resolved Age Notes LastModified by Organization Details LastModified Time Father Anxiety Not available 09/20/2024 11:47:22 Medical History Condition Response Anxiety Disorder Y High Cholesterol Y Psychiatric/Mental Health Condition Y Depression Y Psychiatric Illness Y Past Encounters Encounter ID Performer Location Encounter Start Date Encounter Closed Date Diagnosis/Indication Diagnosis SNOMED-CT Code Diagnosis ICD10 Code Diagnosis IMO Codes Diagnosis Note [id number] [facility] [address] [place] [address] 12/25/2024 09:00:36 12/26/2024 06:41:24 Severe 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 11332151 F33.2 [id number] Patient reports feeling anxious today and mentions [...] for next treatment [id number] Brittni Braswell CNM, [facility] Main Office [address] [facility] [place] [address] 12/31/2024 09:05:07 01/01/2025 16:42:21 Severe 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 25744410 F33.2 [id number] Clark continues to experience significan t depressive [...] management , pending insurance coverage Discussed previous [employer] testing (approxima zahida one year ago) and the potential benefits of updated testing with [employer] Continue to monitor for suicidal ideation and [...] for next treatment [id number] Brittni Braswell CNM, [facility] Main Office [address] [place] [address] 01/07/2025 09:10:58 01/09/2025 07:41:37 Severe 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 93758633 F33.2 [id number] I discussed with Clark his ongoing symptoms [...] reassess treatment directionD iscussed possibilit y of [facility] to [facility] when services are establishe d Chante reassess [...] for next treatment [id number] Brittni Braswell CNM, PMHNP- Main Office [address] [place] [address] 01/21/2025 09:10:22 01/24/2025 00:46:29 Severe 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 95206925 F33.2 [id number] I discussed with the patient his recent [...] response to treatmentD iscussed possibilit y of [facility] to [facility] when services are establishjade Sharif reassess treatment plan at next visit based on response to reduced session frequencyC ontinue current treatment plan for depression Monitor improvemen t in passive suicidal thoughts, which have decreased with last occurrence last week. continued social engagement and activities of interest 0820 Spravato 28mg given intranasal ly and repeated at 0825, 3rd dose given at 0830. SAO2 98-99%Brody blanchard did well with therapy. [...] ID Davidson Member ID Guarantor Name 01/21/2025 2 [facility] - DOS ON OR AFTER 2020 - DUAL ELIGIBLE (MEDICARE REPLACEMENT/ ADVANTAGE - HMO) Clark Delarosa [id number] Clark Delarosa Notes Date Note Type Note [...] Brittni Braswell CNM, PMHNP- [address], [place], [address], [place] [facility] 01/22/2025 11:21:33
--- OUTSIDE RECORDS SUMMARY | 2025-03-18 15:19 | XMS_ITS | Continuity of Care Document ---
Author Organization [facility], Main Office Address [address] [place] [address] Assessment Encounter Date Assessment Date Assessment LastModified by Organization Details LastModified Time 02/20/2025 02/20/2025 Labs and Imaging Visit Summary A 49-year-old male with a history of depression presented for Spravato treatment. He reports obtaining nicotine patches and being prescribed duloxetine but has not started either medication yet. 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 He reports [...] to these interventions. Standardized Scales: PHQ9=23 GAD7=21 [email or web address] Not available 02/20/2025 21:39:12 Plan of Treatment [...] Severe 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 42506281 Active 2024 Brittni Braswell CNM, [facility] [address], [place], [address], [facility] 5 11:39:02 Generalize d anxiety disorder 61007799 Active 2024 Brittni Braswell CNM, [facility] [address], [place], [address], [facility] 13:11:05 Suicidal thoughts 3730522 Active 2024 Brittni Braswell CNM, [facility] [address], [place], [address], [facility] 13:11:32 Severe recurrent major depression 149195593196 Active 2024 Brittni Braswell CNM, [facility] [address], [place], [address], [facility] 21:55:51 Problem Notes None recorded. [...] weight Heart rate Oxygen saturation Heart rate Heart rate Oxygen saturation Oxygen saturation Systolic And Diastolic Systolic And Diastolic Systolic And Diastolic Provider Name and Address Organization Details Last Updated DateTime 172.72 cm 26 kg/m2 14076.3 g 87 /min 97 % 83 /min 87 /min 99 % 100 % 114/74 mm[Hg] 153/82 mm[Hg] 107/74 mm[Hg] Jocy Calabrese [facility] [place] 13:38:03 Social History Question Answer Notes LastModified by [employer] Details LastModified Time Tobacco Smoking Status Current Every Day Smoker Brittni Braswell, NIC, PMHNP- [address], [place], [address], [facility] 09/20/2024 12:05:26 Are There Any Guns Present In Your Home? Yes [email or web address] Information not available 09/20/2024 Do You Feel Safe In Your Home? Yes [email or web address] Information not available 09/20/2024 How Much Tobacco Do You Smoke? 1 PPD [email or web address] Information not available 09/20/2024 Has Tobacco Cessation Counseling Been Provided? No [email or web address] Information not available 09/20/2024 How Many Years Have You Smoked Tobacco? 35 [email or web address] Information not available 09/20/2024 Sex: Unknown Functional Status Question Answer Note LastModified by [employer] Details LastModified Time Do you use any illicit or recreational drugs? No [email or web address] Information not available 09/20/2024 Do you or have you ever used any other forms of tobacco or nicotine? Yes [email or web address] Information not available 09/20/2024 What is your level of alcohol consumption? None [email or web address] Information not available 09/20/2024 Do you or have you ever used e-cigarettes or vape? Never used electronic cigarettes [email or web address] Information not available 09/20/2024 Mental Status Question Answer Note LastModified by Organization D etails LastModified Time Do you feel stressed (tense, restless, nervous, or anxious, or unable to sleep at night)? [id number] [email or web address] Information not available 09/20/2024 Family History Relationship Description Onset Age of this Age Resolved Age Notes LastModified by Organization Details LastModified Time Father Anxiety [email or web address] Not available 09/20/2024 11:47:22 Medical History Condition Response Depression Y Psychiatric Illness Y Anxiety Disorder Y High Cholesterol Y Psychiatric/Mental Health Condition Y Past Encounters Encounter ID Performer Location Encounter Start Date Encounter Closed Date Diagnosis/Indication Diagnosis SNOMED-CT Code Diagnosis ICD10 Code Diagnosis IMO Codes Diagnosis Note [id number] Brittni Braswell CNM, [facility] Main Office [address] [place] [address] 01/21/2025 09:10:22 01/24/2025 00:46:29 Severe 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 66888710 F33.2 [id number] I discussed with the patient his recent [...] [facility] when services are establishjade Sharif reassess treatment [...] tuesday in 2 weeks for next treatment [id number] Brittni Braswell CNM, [facility] Main Office [address] [place] [address] 02/05/2025 09:08:55 02/06/2025 09:22:01 Severe 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 22630911 F33.2 3176241 0810 Spravato 28mg given intranasal ly and [...] for next treatment [id number] Brittni Braswell CNM, [facility] Main Office [address] [place] [address] 02/18/2025 11:23:59 02/19/2025 08:02:17 Severe 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 10457600 F33.2 [id number] The patient continues to experience significan t [...] for next treatment [id number] Brittni Braswell CNM, [facility] Main Office [address] [place] [address] 02/20/2025 11:20:01 02/21/2025 18:16:30 Severe 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 62238608 F33.2 [id number] The patient continues to experience feelings of [...] 10:35, 3rd dose given at 10:40. SAO2 07=756%Kyree on did well with therapy. no dissociati [...] ID Davidson Member ID Guarantor Name 02/20/2025 2 [facility] - DOS ON OR AFTER 2020 - DUAL ELIGIBLE (MEDICARE REPLACEMENT/ ADVANTAGE - HMO) Clark Delarosa [id number] Clark Delarosa Notes Date Note Type Note Provider Name and Address Organization Details Recorded Time 02/20/2025 text/html History of present illnessSpravato treatment. He mentions that he has obtained nicotine patches and has been prescribed duloxetine, though he has not started either yet. 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 When asked about feelings of worthlessness and hopelessness, he states there is a little hope there, evidenced by his recent purchase on [email or web address], though he mentions he might cancel the [...] but not yet started Brittni Braswell CNM, PMHNP- [address], [place], [address], [facility] 02/20/2025 21:44:07
--- OUTSIDE RECORDS SUMMARY | 2025-03-18 15:19 | XMS_ITS | Continuity of Care Document ---
Author Organization [facility], Main Office Address [address] [place] [address] Assessment Encounter Date Assessment Date Assessment LastModified [...] timing or dosage if sleep disturbances persist [email or web address] Not available 12/31/2024 23:07:27 Plan of Treatment [...] Severe 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 22399352 Active 2024 Brittni Braswell CNM, [facility] [address], [place], [address], [facility] 11:39:02 Generalize d anxiety disorder 08920230 Active 2024 Brittni Braswell CNM, [facility] [address], [place], [address], [facility] 13:11:05 Suicidal thoughts 1351181 Active 2024 Brittni Braswell CNM, [facility] [address], [place], [address], [facility] 13:11:32 Severe recurrent major depression 464948060928 Active 2024 Brittni Braswell CNM, [facility] [address], [place], [address], [facility] 21:55:51 Problem Notes None recorded. [...] rate Heart rate Oxygen saturation Oxygen saturation Oxygen saturation Systolic And Diastolic Systolic And Diastolic Systolic And Diastolic Provider Name and Address Organization Details Last Updated DateTime 172.72 cm 24.8 kg/m2 73268.5 6 g 83 /min 77 /min 72 /min 99 % 96 % 98 % 110/74 mm[Hg] 105/72 mm[Hg] 121/85 mm[Hg] Jocy Calabrese [facility] 16:55:39 Social History Question Answer Notes LastModified by [employer] Details LastModified Time Tobacco Smoking Status Current Every Day Smoker Brittni Braswell, NIC, PMP- [address], [place], [address], [facility] 09/20/2024 12:05:26 Are There Any Guns Present In Your Home? Yes [email or web address] Information not available 09/20/2024 Do You Feel Safe In Your Home? Yes [email or web address] Information not available 09/20/2024 How Much Tobacco Do You Smoke? 1 PPD [email or web address] Information not available 09/20/2024 Has Tobacco Cessation Counseling Been Provided? No [email or web address] Information not available 09/20/2024 How Many Years Have You Smoked Tobacco? 35 [email or web address] Information not available 09/20/2024 Sex: Unknown Functional Status Question Answer Note LastModified by Organizat ion Details LastModified Time Do you use any illicit or recreational drugs? No [email or web address] Information not available 09/20/2024 Do you or have you ever used any other forms of tobacco or nicotine? Yes [email or web address] Information not available 09/20/2024 What is your level of alcohol consumption? None [email or web address] Information not available 09/20/2024 Do you or have you ever used e-cigarettes or vape? Never used electronic cigarettes [email or web address] Information not available 09/20/2024 Mental Status Question Answer Note LastModified by Organization D etails LastModified Time Do you feel stressed (tense, restless, nervous, or anxious, or unable to sleep at night)? [id number] [email or web address] Information not available 09/20/2024 Family History Relationship Description Onset Age of this Age Resolved Age Notes LastModified by Organization Details LastModified Time Father Anxiety [email or web address] Not available 09/20/2024 11:47:22 Medical History Condition Response Anxiety Disorder Y Psychiatric/Mental Health Condition Y Depression Y High Cholesterol Y Psychiatric Illness Y Past Encounters Encounter ID Performer Location Encounter Start Date Encounter Closed Date Diagnosis/Indication Diagnosis SNOMED-CT Code Diagnosis ICD10 Code Diagnosis IMO Codes Diagnosis Note [id number] Brittni Braswell CNM, PMHNP- Main Office [address] [place] [address] 12/03/2024 09:01:37 12/04/2024 06:29:14 Severe 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 84430244 F33.2 [id number] I discussed with Clark his improvemen t [...] total timereturn on tuesday for next treatment [id number] Brittni Braswell CNM, [facility] Main Office [address] [place] [address] 12/11/2024 12:40:06 12/12/2024 06:36:21 Severe 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 70862356 F33.2 [id number] Clark continues to experience anxiety symptoms with [...] for next treatment [id number] Brittni Braswell CNM, [facility] Main Office [address] [place] [address] 12/19/2024 09:03:23 12/20/2024 06:44:01 Severe 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 [address] 12/25/2024 09:00:36 12/26/2024 06:41:24 Severe 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 33469343 F33.2 [id number] Patient reports feeling anxious today and mentions [...] for next treatment [id number] Brittni Braswell CNM, [facility] Main Office [address] [place] [address] 12/31/2024 09:05:07 01/01/2025 16:42:21 Severe 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 69383978 F33.2 [id number] Clark continues to experience significan t depressive [...] insurance coverage Discussed previous GeneSight testing (approxima telisabella one year ago) and the potential benefits [...] ID Davidson Member ID Guarantor Name 12/31/2024 2 [facility] - DOS ON OR AFTER 2020 - DUAL ELIGIBLE (MEDICARE REPLACEMENT/ ADVANTAGE - HMO) Clark Delarosa [id number] Clark Delarosa Notes Date Note Type Note [...] a year ago, which he believes was [employer]. According to the test results, everything should [...] that has since diminished. Brittni Braswell, NIC, PMHNP- [address], [place], [address], [facility] 12/31/2024 23:11:58
--- OUTSIDE RECORDS SUMMARY | 2025-03-18 15:19 | XMS_ITS | Continuity of Care Document ---
Author Organization [facility], Main Office Address [address] [place] [address] Assessment Encounter Date Assessment Date Assessment LastModified [...] engaged in treatment. Standardized Scales: PHQ9=23 GAD7=21 [email or web address] Not available 12/19/2024 09:47:18 Plan of Treatment [...] Severe 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 27456443 Active 2024 Brittni Braswell CNM, PMHNP-[facility] [address], [place], [address], [facility] 5 11:39:02 Generalize d anxiety disorder 11425988 Active 2024 Brittni Braswell CNM, [facility] [address], [place], [address], [facility] 5 13:11:05 Suicidal thoughts 0866412 Active 2024 Brittni Brawsell CNM, [facility] [address], [place], [address], [facility] 13:11:32 Severe recurrent major depression 452613968070 Active 2024 Brittni Braswell CNM, [facility] [address], [place], [address], [facility] 21:55:51 Problem Notes None recorded. Medical [...] (BMI) Body weight Heart rate Oxygen saturation Systolic And Diastolic Provider Name and Address Organization Details Last Updated DateTime 5 172.72 cm 25.2 kg/m2 68464.6 1 g 71 /min 98 % 122/75 mm[Hg] Jocy Calabrese [facility] 09:09:35 Social History Question Answer Notes LastModified by [employer] Details LastModified Time Tobacco Smoking Status Current Every Day Smoker Brittni Braswell, CNMilagro, PMHNP- [address], [place], [address], [facility] 09/20/2024 12:05:26 Are There Any Guns Present In Your Home? Yes [email or web address] Information not available 09/20/2024 Do You Feel Safe In Your Home? Yes [email or web address] Information not available 09/20/2024 How Much Tobacco Do You Smoke? 1 PPD [email or web address] Information not available 09/20/2024 Has Tobacco Cessation Counseling Been Provided? No [email or web address] Information not available 09/20/2024 How Many Years Have You Smoked Tobacco? 35 [email or web address] Information not available 09/20/2024 Sex: Unknown Functional Status Question Answer Note LastModified by [employer] Details LastModified Time Do you use any illicit or recreational drugs? No Information not available 09/20/2024 Do you or have you ever used any other forms of tobacco or nicotine? Yes Information not available 09/20/2024 What is your level of alcohol consumption? None [email or web address] Information not available 09/20/2024 Do you or have you ever used e-cigarettes or vape? Never used electronic cigarettes [email or web address] Information not available 09/20/2024 Mental Status Question Answer Note LastModified by Organization D etails LastModified Time Do you feel stressed (tense, restless, nervous, or anxious, or unable to sleep at night)? [id number] [email or web address] Information not available 09/20/2024 Family History Relationship Description Onset Age of this Age Resolved Age Notes LastModified by Organization Details LastModified Time Father Anxiety [email or web address] Not available 09/20/2024 11:47:22 Medical History Condition Response Anxiety Disorder Y Psychiatric/Mental Health Condition Y Depression Y High Cholesterol Y Psychiatric Illness Y Past Encounters Encounter ID Performer Location Encounter Start Date Encounter Closed Date Diagnosis/Indication Diagnosis SNOMED-CT Code Diagnosis ICD10 Code Diagnosis IMO Codes Diagnosis Note [id number] Brittni Braswell CNM, [facility] Main Office [address] [facility] [place] [place] [address] 11/19/2024 13:51:23 11/20/2024 06:23:14 Severe 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 96792577 F33.2 [id number] Clark was seen this am by his [...] on Tuesday for next treatment Suicidal thoughts 893745 6 R45.457 [id number] Clark reports chronic passive suicidal thoughts without current intent or plan. He has a history of one psychiatri c hospitaliz ation around 2009 for suicidal ideation.t o text 988 call 911 or go to the nearest hospital if SI increases [id number] rBittni Braswell CNM, [facility] Main Office [address] [place] [address] 11/21/2024 08:57:48 11/22/2024 06:17:31 Severe 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 37593394 F33.2 [id number] Clark is showing signs of improvemen t [...] for next treatment [id number] Brittni Braswell CNM, [facility] Main Office [address] [place] [address] 11/26/2024 09:02:51 11/27/2024 06:20:23 Severe 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 92229106 F33.2 79882910 Patient continues to experience feelings of worthlessn [...] for next treatment [id number] Brittni Braswell CNM, [facility] Main Office [address] [place] [address] 11/28/2024 09:04:18 11/29/2024 06:29:54 Severe 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 57813462 F33.2 02690938 3104736 The patient continues to experience significan t [...] break as initially requested by the patientSch edutabitha next appointmen t for Tuesday of weekMonito r suicidal ideation closely at each sessionAft catherine choi one month of weekly sessions, reassess for possible transition to every other week appointmen ts depending on symptom improvemen t 0818 Spravato 28mg given intranasal ly and repeated at 0823, 3rd dose given at 0828. SAO2 98-99%Jeffso n did well with therapy. no dissociati on with treatment. Vss before, during, and after therapy. .Quincy brought Clark to his visit and is here to take home.Disch arge home at 1029. 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 59747174 F33.2 [id number] I discussed with Clark his improvemen t [...] for next treatment [id number] Brittni Braswell CNM, [facility] Main Office [address] [facility] [place] [place] [address] 12/11/2024 12:40:06 12/12/2024 06:36:21 Severe 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 81737337 F33.2 [id number] Clark continues to experience anxiety symptoms with [...] [facility] Main Office [address] [facility] [place] [place] [address] 12/19/2024 09:03:23 12/20/2024 06:44:01 Severe 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 95385791 F33.2 [id number] Clark reports improvemen t in his depressive [...] ID [employer] Member ID Guarantor Name 12/19/2024 2 [facility] - DOS ON OR AFTER 2020 - DUAL ELIGIBLE (MEDICARE REPLACEMENT/ ADVANTAGE - HMO) Clark Delarosa [id number] Clark Delarosa Notes Date Note Type Note [...] as helping huge with his symptoms. Brittni Braswell, NIC, PMHNP- [address], [place], [address], [facility] 12/19/2024 22:28:03
--- OUTSIDE RECORDS SUMMARY | 2025-03-18 15:19 | XMS_ITS | Continuity of Care Document ---
Author Organization [facility], Main Office Address [address] [place] [address] Assessment Encounter Date Assessment Date Assessment LastModified by Organization Details LastModified Time 03/07/2025 03/07/2025 Labs and Imaging Visit Summary Fransico Delarosa is a 49-year-old male seen today for spravato treatment. He reports feeling tired and having low energy that comes and goes. He is currently on medication recieing twice weekly spravato, which he reports is helping a little bit. He mentioned taking a three-hour nap after his last medication dose. He denies any thoughts of harming himself or others and denies auditory or visual hallucinations. We discussed his current treatment schedule, including transitioning from twice weekly appointments back to weekly appointments. discussed transfering [facility] to the [facility] starting in March. At the new location, appointments will be scheduled for Tuesdays and Fridays. 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 45391099 Active 2024 Brittni Braswell CNM, PMHNP-BC [address], [place], [address], [facility] [place] 11:39:02 Generalize d anxiety disorder 31988005 Active 2024 Brittni Braswell CNM, [facility] [address], [place], [address], [facility] [place] 13:11:05 Suicidal thoughts 8464553 Active 2024 Brittni Braswell CNM, [facility] [address], [place], [address], [facility] [place] 13:11:32 Severe recurrent major depression 098191613572 Active 2024 Brittni Braswell CNM, [facility] [address], [place], [address], [facility] [place] 21:55:51 Problem Notes None recorded. Medical Equipment [...] Organization Details Last Updated DateTime 172.72 cm 25.7 kg/m2 88641.1 1 g 83 /min 98 % 72 /min 67 /min 99 % 98 % 112/80 mm[Hg] 125/84 mm[Hg] 118/78 mm[Hg] Jocy Calabrese [facility] 13:52:06 Social History Question Answer Notes LastModified by [employer] Details LastModified Time Tobacco Smoking Status Current Every Day Smoker Brittni Braswell, NIC, PMHNP- [address], [place], [address], [facility] [place] 09/20/2024 12:05:26 Are There Any Guns Present In Your Home? Yes [email or web address] Information not available 09/20/2024 Do You Feel Safe In Your Home? Yes [email or web address] Information not available 09/20/2024 How Much Tobacco Do You Smoke? 1 PPD [email or web address] Information not available 09/20/2024 Has Tobacco Cessation Counseling Been Provided? No Information not available 09/20/2024 How Many Years Have You Smoked Tobacco? 35 [email or web address] Information not available 09/20/2024 Sex: Unknown Functional Status Question Answer Note LastModified by [employer] Details LastModified Time Do you use any illicit or recreational drugs? No [email or web address] Information not available 09/20/2024 Do you or have you ever used any other forms of tobacco or nicotine? Yes [email or web address] Information not available 09/20/2024 What is your level of alcohol consumption? None [email or web address] Information not available 09/20/2024 Do you or have you ever used e-cigarettes or vape? Never used electronic cigarettes Information not available 09/20/2024 Mental Status Question Answer Note LastModified by Organization D etails LastModified Time Do you feel stressed (tense, restless, nervous, or anxious, or unable to sleep at night)? [id number] [email or web address] Information not available 09/20/2024 Family History Relationship Description Onset Age of this Age Resolved Age Notes LastModified by Organization Details LastModified Time Father Anxiety [email or web address] Not available 09/20/2024 11:47:22 Medical History Condition Response Anxiety Disorder Y Psychiatric/Mental Health Condition Y Depression Y High Cholesterol Y Psychiatric Illness Y Past Encounters Encounter ID Performer Location Encounter Start Date Encounter Closed Date Diagnosis/Indication Diagnosis SNOMED-CT Code Diagnosis ICD10 Code Diagnosis IMO Codes Diagnosis Note [id number] Brittni Braswell CNM, [facility] Main Office [address] [place] [address] 02/05/2025 09:08:55 02/06/2025 09:22:01 Severe 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 38489537 F33.2 5505591 0810 Spravato 28mg given intranasal ly and repeated at 0815, 3rd dose given at 0820. SAO2 98-99%Brody n did well with therapy. no dissociati on with treatment. Vss before, during, and after therapy. .Quincy brought Fransico to his visit and is here to take home.Disch arge home at 1020. 130minutes total timereturn on tuesday in 2 weeks for next treatment [id number] Brittni Braswell CNM, [facility] Main Office [address] [facility] [place] [address] 02/18/2025 11:23:59 02/19/2025 08:02:17 Severe 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 33028794 F33.2 42232560 The patient continues to experience significan t [...] to track progress [facility] 10:38 Spravato 28mg given intranasal ly and repeated at 10:43, 3rd dose given at 10:48. SAO2 99%Fransico did well with therapy. no dissociati on with treatment. Vss before, during, and after therapy. .Quincy brought Fransico to his visit and is here to take home.Disch leno home at 2:48PM, 130minut in 2 weeks for next treatment [id number] Brittni Braswell CNM, [facility] Main Office [address] [place] [address] 02/20/2025 11:20:01 02/21/2025 18:16:30 Severe 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 49732407 F33.2 23639964 The patient continues to experience feelings of [...] 10:35, 3rd dose given at 10:40. SAO2 40=063%Kyree on did well with therapy. no dissociati on with treatment. Vss before, during, and after therapy. .Quincy brought Fransico to his visit and is here to take home.Disch leno home at 12:40PM, 130minuten ext treatment - Tuesday 91 Brittni Braswell CNM, [facility] Main Office [address] [place] [address] 02/27/2025 11:29:37 02/28/2025 21:20:18 Severe 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 13425804 F33.2 3692544 I discussed with the patient his report [...] 10:41, 3rd dose given at 10:46. SAO2 98-100% Fransico did well with therapy. no dissociati on with treatment. Vss before, during, and after therapy. .Quincy brought Fransico to his visit and is here to take home.Disch arge home at 12:48PM, 132minuten ext treatment - Tuesday Brittni Braswell CNM, PMHNP- Main Office [address] [place] [address] 03/05/2025 09:09:57 03/05/2025 20:18:49 Severe 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 12941056 F33.2 [id number] Fransico esquivel continues to experience depression with persistent [...] 0820am, 3rd dose given at 0825am. SAO2 97-99%Brody blanchard did well with therapy. no dissociati on with treatment. Vss before, during, and after therapy. .Quincy brought Fransico to his visit and is here to take home.Disch arge home at 12:48PM, 132minuten ext treatment - [id number] Brittni Braswell, NIC, PMHNP- Main Office [address] [place] [address] 03/07/2025 11:15:40 03/07/2025 22:05:33 Severe 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 27174422 F33.2 9468641 Fransico continues to experience fatigue and low energy that fluctuates . He reports some improvemen t with the current medication regimen of two doses, though he still experience s significan t tiredness, including taking a three-hour nap after his last dose. I noted that the dreary weather may be contributi ng to his low energy levels. We discussed continuing the current medication regimen.Co ntinue current medication at two dosesMonit or energy levels and sleep patternsCo ntinue twice weekly appointmen ts for now, transition ing to weekly appointmen ts when we relocate to [place] Schedule follow-up appointmen ts for Tuesday and Tuesday next weekPlan to transition to Tuesday and Tuesday appointmen ts at the [place] location starting March 19, 2025 Continue to monitor PHQ-9 scores to track progress 1037 Spravato 28mg given intranasal ly and repeated at 1042am, 3rd dose given at 1047am. SAO2 98-99%Brody blanchard did well with therapy. no dissociati on with treatment. Vss before, during, and after therapy. .Quincy brought Fransico to his visit and is here to take home.Disch arge home at 12:47PM, 130minuten ext treatment - Tuesday Health Concerns Section Related Observation LastModified by Organization Detai ls LastModified Time None Recorded Concern Status LastModified by Organization Details LastModified Time None Recorded Payers Encounter Date Sequence Insurance Name Policy Number Policy Davidson Covered Member ID Davidson Member ID Guarantor Name 03/07/2025 2 [facility] - DOS ON OR AFTER 2020 - DUAL ELIGIBLE (MEDICARE REPLACEMENT/ ADVANTAGE - HMO) Fransico Delarosa [id number] Fransico Delarosa Notes Date Note Type Note Provider Name and Address Organization Details Recorded Time 03/07/2025 text/html History of present illness Fransico Delarosa is a 49-year-old male seen today for spravato treatment. He reports feeling tired and having low energy that comes and goes. He is currently on medication recieing twice weekly spravato, which he reports is helping a little bit. He mentioned taking a three-hour nap after his last medication dose. He denies any thoughts of harming himself or others and denies auditory or visual hallucinations. Brittni Braswell CNM, PMHNP-BC [address], [place], [address], [facility] [place] 03/07/2025 20:43:34
--- OUTSIDE RECORDS SUMMARY | 2025-03-18 15:20 | XMS_ITS | Continuity of Care Document ---
Author Organization [facility], Main Office Address [address] [place] [address] Assessment No assessment recorded. Plan of Treatment Reminders Order Date Submit [...] Severe 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 29113674 Active 2024 Brittni Braswell CNM, [facility] [address], [place], [address], [facility] 11:39:02 Generalize d anxiety disorder 40858786 Active 2024 Brittni Braswell CNM, [facility]- [address], [place], [address], [facility] 13:11:05 Suicidal thoughts 8032139 Active 2024 Brittni Braswell CNM, [facility] [address], [place], [address], [facility] 13:11:32 Severe recurrent major depression 360474974593 Active 2024 Brittni Braswell CNM, [facility]- [address], [place], [address], [facility] 21:55:51 Problem Notes None recorded. Medical Equipment [...] Last Updated DateTime 172.72 cm 25.8 kg/m2 12016.7 g 95 /min 97 % 87 /min 64 /min 98 % 98 % 110/74 mm[Hg] 118/70 mm[Hg] 116/74 mm[Hg] Jocy Calabrese [facility] 13:41:42 Social History Question Answer Notes LastModified by Organizat ion Details LastModified Time Tobacco Smoking Status Current Every Day Smoker Brittni Braswell, NIC, PMHNP- [address], [place], [address], [facility] 09/20/2024 12:05:26 Are There Any Guns Present In Your Home? Yes [email or web address] Information not available 09/20/2024 Do You Feel Safe In Your Home? Yes Information not available 09/20/2024 How Much Tobacco Do You Smoke? 1 PPD Information not available 09/20/2024 Has Tobacco Cessation Counseling Been Provided? No [email or web address] Information not available 09/20/2024 How Many Years Have You Smoked Tobacco? 35 [email or web address] Information not available 09/20/2024 Sex: Unknown Functional Status Question Answer Note LastModified by Organizat ion Details LastModified Time Do you use any illicit or recreational drugs? No [email or web address] Information not available 09/20/2024 Do you or have you ever used any other forms of tobacco or nicotine? Yes [email or web address] Information not available 09/20/2024 What is your level of alcohol consumption? None [email or web address] Information not available 09/20/2024 Do you or have you ever used e-cigarettes or vape? Never used electronic cigarettes Information not available 09/20/2024 Mental Status Question Answer Note LastModified by Organization D etails LastModified Time Do you feel stressed (tense, restless, nervous, or anxious, or unable to sleep at night)? [id number] [email or web address] Information not available 09/20/2024 Family History Relationship Description Onset Age of this Age Resolved Age Notes LastModified by Organization Details LastModified Time Father Anxiety [email or web address] Not available 09/20/2024 11:47:22 Medical History Condition Response Depression Y Anxiety Disorder Y High Cholesterol Y Psychiatric/Mental Health Condition Y Psychiatric Illness Y Past Encounters Encounter ID Performer Location Encounter Start Date Encounter Closed Date Diagnosis/Indication Diagnosis SNOMED-CT Code Diagnosis ICD10 Code Diagnosis IMO Codes Diagnosis Note [id number] Brittni Braswell CNM, PMHNP- Main Office [address] [place] [address] 02/18/2025 11:23:59 02/19/2025 08:02:17 Severe 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 21285039 F33.2 [id number] The patient continues to experience significan t [...] to track progress [facility] 10:38 Spravato 28mg given intranasal ly and repeated at 10:43, 3rd dose given at 10:48. SAO2 99%Clark did well with therapy. no dissociati on with treatment. Vss before, during, and after therapy. .Quincy brought Clark to his visit and is here to take home.Disch arge home at 2:48PM, 130minut in 2 weeks for next treatment [id number] Brittni Braswell CNM, PMHNP-BC Main Office [address] [place] [address] 02/20/2025 11:20:01 02/21/2025 18:16:30 Severe 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 62101247 F33.2 30924674 The patient continues to experience feelings of [...] 10:35, 3rd dose given at 10:40. SAO2 26=694%Kyree on did well with therapy. no dissociati on with treatment. Vss before, during, and after therapy. .Quincy brought Clark to his visit and is here to take home.Disch arge home at 12:40PM, 130minuten ext treatment - Tuesday Brittni Braswell CNM, PMHNP-BC Main Office [address] [place] [address] 02/27/2025 11:29:37 02/28/2025 21:20:18 Severe 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 06902724 F33.2 5383071 I discussed with the patient his report [...] ext treatment - Tuesday Brittni Braswell CNM, [facility] Main Office [address] [place] [address] 03/05/2025 09:09:57 03/05/2025 20:18:49 Severe 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 54709578 F33.2 [id number] Clark esquivel continues to experience depression with [...] 0820am, 3rd dose given at 0825am. SAO2 97-99%Jeffso n did well with therapy. no dissociati on with treatment. Vss before, during, and after therapy. .Quincy brought Clark to his visit and is here to take home.Disch arge home at 12:48PM, 132minuten ext treatment - 9252 Brittni Braswell CNM, [facility]- Main Office [address] [place] [address] 03/07/2025 11:15:40 03/07/2025 22:05:33 Severe 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 94537024 F33.2 6916630 Clark continues to experience fatigue and low energy [...] weekly appointmen ts when we relocate to [place] Schedule follow-up appointmen ts for Tuesday and Tuesday next weekPlan to transition to Tuesday and Tuesday appointmen ts at the [place] location starting March 19, 2025 Continue to monitor PHQ-9 scores to track progress 1037 Spravato 28mg given intranasal ly and repeated at 1042am, 3rd dose given at 1047am. SAO2 98-99%Jaso n did well with therapy. no dissociati on with treatment. Vss before, during, and after therapy. .Quincy brought Clark to his visit and is here to take home.Disch arge home at 12:47PM, 130minuten ext treatment - Tuesday Brittni Braswell CNM, [facility] Main Office [address] [place] [address] 03/11/2025 11:23:18 03/13/2025 08:05:19 Severe 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 05744025 F33.2 03729791 The patient reports feeling a little better on the second dose of his current medication , with increased energy and productivi ty at times, though he still requires naps during the day. He has been able to engage in physical activities like chopping wood and car repair, which represents an improvemen t in functionin g. He continues to express strong negative feelings about the upcoming season but anticipate s improvemen t after the holidays pass. I discussed the progress he has made and the importance of continuing treatment. Continue current antidepres jina medication at the present dose Monitor for continued improvemen t in energy, mood, and functionin g Follow up on Tuesday at 10:00 AM to reassess response to treatment Discussed potential seasonal component to mood symptomsPl an to transition to Tuesday and Tuesday appoint[place] [facility] [place], [place]25 Continue to monitor PHQ-9 scores to track progress 1047 Spravato 28mg given intranasal ly and repeated at 1052am, 3rd dose given at 84046em. SAO2 96-100%Kyree on did well with therapy. no dissociati on with treatment. Vss before, during, and after therapy. .Quincy brought Clark to his visit and is here to take home.Disch arge home at 12:59PM, 132minuten ext treatment - tuesday [id number] Brittni Braswell, NIC, PMHNP- Main Office [address] [place] [address] 03/13/2025 11:23:26 03/15/2025 10:09:34 Severe 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 06741747 F33.2 47996570 The patient reports feeling a little better since getting 2 doses a week of spravato. He admits to h increased energy and productivi ty at times, though he still requires naps during the day.Contin ue current antidepres jina medication at the present doseMonito r for continued improvemen t in energy, mood, and functionin gFollow up on Tuesday at 10:00 AM to reassess response to treatmentD iscussed potential seasonal component to mood symptomsPl an to transition to Tuesday and Tuesday appointmen ts at the [place] location starting March 19, 2025 Continue to monitor PHQ-9 scores to track progress 1025Sprava to 28mg given intranasal ly and repeated at 1030am, 3rd dose given at 1035am. SAO2 97-98%Brody blanchard did well with therapy. no dissociati on with treatment. Vss before, during, and after therapy. .Quincy brought Clark to his visit and is here to take home.Disch arge home at 12:36PM, 131minuten ext treatment - Tuesday at [place] office Health Concerns Section Related Observation LastModified by Organization Detai ls LastModified Time None Recorded Concern Status LastModified by Organization Details LastModified Time None Recorded Payers Encounter Date Sequence Insurance Name Policy Number Policy Davidson Covered Member ID Davidson Member ID Guarantor Name 03/13/2025 2 [facility] - DOS ON OR AFTER 2020 - DUAL ELIGIBLE (MEDICARE REPLACEMENT/ ADVANTAGE - HMO) Clark Delarosa [id number] Clark Delarosa Notes Date Note Type Note Provider Name and Address Organization Details Recorded Time 03/13/2025 text/html History of present illnessClark Delarosa is a 49-year-old male presenting for spravato treatment He reports feeling an improvment in mood. Has been having some productive periods with increased energy at times. sore today after cutting wood, he acknowledges he's not up to that part anymore of chopping wood by hand. Past Medical HistoryIllness, Injuries, Operations, and Treatment: Not providedPrevious Psychiatric or Mental Health Treatment: Not providedPrevious Psychiatric or Mental Health Hospitalization: Not provided Medication HistoryPrazosin: Patient reports he stopped taking this medication. He mentions that they came out with some cancer as a reason for stopping. He notes that his doctor did not refill the prescription, though the pharmacy sent him a refill reminder. Brittni Braswell, NIC, PMHNP-BC [address], [place], [address], [facility] 03/14/2025 00:58:03
--- OUTSIDE RECORDS SUMMARY | 2025-03-18 15:20 | XMS_ITS | Data Portability ---
Author Organization [facility], Telehealth (patients home) Address [address] [place] [address] Assessment Encounter Date Assessment Date Assessment LastModified [...] importance of consistent attendance at treatment sessions [email or web address] Not available 02/27/2025 22:36:34 03/05/2025 03/05/2025 Labs [...] into his condition. Standardized Scales: PHQ9=20 GAD7=21 [email or web address] Not available 03/05/2025 15:57:13 03/07/2025 03/07/2025 Labs and Imaging Visit Summary Clark Delarosa is a 49-year-old male seen today [...] back to weekly appointments. discussed transfering his [facility] [place] [facility] [place] March. At the new location, appointments will be scheduled for Tuesdays and Fridays. Standardized Scales: PHQ9=23 GAD7=21 [email or web address] Not available 03/07/2025 20:42:43 03/11/2025 03/11/2025 Labs and Imaging Visit Summary A 49-year-old male with a history of depression presented for reports feSpravato Treatment. Feeling a little better on his current medication dose, noting increased energy and productivity at times, though he still requires naps. He has been engaging in physical activities including chopping wood and working on his brother's car. He reports stopping prazosin, which may be contributing to vivid dreams. He expresses strong negative feelings about the upcoming holiday season but anticipates improvement after the holidays pass. He denies current suicidal or homicidal ideation. The patient appears to be responding to the second dose of his current medication with some improvement in symptoms, though full remission has not been achieved. Standardized Scales: PHQ9=23 GAD7=21 [email or web address] Not available 03/12/2025 23:10:21 Plan of Treatment Reminders Order Date Submit [...] Modified By Organization Details Last Modified Time 03/11/2025 [id number] The patient repo rts discontinuing prazosin due to concerns about cancer risk. Since stopping this medication, he has experienced vivid dreams, including one with violent content. I discussed the potential connection between stopping prazosin and the increase in vivid dreams. Discussed relationship between prazosin discontinuation and vivid dreams Will monitor for continued sleep disturbances and dream content Will address at next follow-up appointment on Tuesday Not available 03/12/2025 23:09:21 Reason for Referral None Reported. 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 51253437 Active 2024 Brittni Braswell CNM, [facility] [address], [place], [address], [facility] 11:39:02 Generalize d anxiety disorder 40195545 Active 2024 Brittni Braswell CNM, [facility] [address], [place], [address], [facility] 13:11:05 Suicidal thoughts 2603305 Active 2024 Brittni Braswell CNM, [facility] [address], [place], [address], [facility] 13:11:32 Severe recurrent major depression 014989072138 Active 2024 Brittni Braswell CNM, [facility] [address], [place], [address], [facility] 21:55:51 Problem Notes [...] Details Last Updated DateTime 5 172.72 cm 25.8 kg/m2 53468.7 g 86 /min 98 % 68 /min 82 /min 99 % 100 % 129/76 mm[Hg] 134/89 mm[Hg] 124/84 mm[Hg] Jocy Calabrese [facility] 5 16:13:10 Date Recorded Body height Provider Name an d Address Organization Details Last Updated DateTime 03/05/2025 172.72 cm Jocy Calabrese [facility] 03/05/2025 09:11:29 Date Recorded Body height Body mass index (BMI) Body weight Heart rate Oxygen saturation Heart rate Heart rate Oxygen saturation Oxygen saturation Systolic And Diastolic Systolic And Diastolic Systolic And Diastolic Provider Name and Address Organization Details Last Updated DateTime 5 172.72 cm 25.7 kg/m2 61882.1 1 g 83 /min 98 % 72 /min 67 /min 99 % 98 % 112/80 mm[Hg] 125/84 mm[Hg] 118/78 mm[Hg] Jocy Calabrese [facility] 5 13:52:06 Date Recorded Body height Body mass index (BMI) Body weight Heart rate Heart rate Heart rate Oxygen saturation Oxygen saturation Oxygen saturation Systolic And Diastolic Systolic And Diastolic Systolic And Diastolic Provider Name and Address Organization Details Last Updated DateTime 172.72 cm 25.8 kg/m2 76491.7 g 88 /min 91 /min 103 /min 100 % 96 % 98 % 103/71 mm[Hg] 132/75 mm[Hg] 103/72 mm[Hg] Jocy Calabrese [facility] 17:53:41 Date Recorded Body height Body mass index (BMI) Body weight Heart rate Oxygen saturation Heart rate Heart rate Oxygen saturation Oxygen saturation Systolic And Diastolic Systolic And Diastolic Systolic And Diastolic Provider Name and Address Organization Details Last Updated DateTime 172.72 cm 25.8 kg/m2 30159.7 g 95 /min 97 % 87 /min 64 /min 98 % 98 % 110/74 mm[Hg] 118/70 mm[Hg] 116/74 mm[Hg] Jocy Calabrese [facility] 13:41:42 Social History Question Answer Notes LastModified by Organizat ion Details LastModified Time Tobacco Smoking Status Current Every Day Smoker Brittni Braswell, [facility], [facility] [address], [place], [address], [facility] 09/20/2024 12:05:26 Are There Any Guns Present In Your Home? Yes [email or web address] Information not available 09/20/2024 Do You Feel Safe In Your Home? Yes [email or web address] Information not available 09/20/2024 How Much Tobacco Do You Smoke? 1 PPD Information not available 09/20/2024 Has Tobacco Cessation Counseling Been Provided? No [email or web address] Information not available 09/20/2024 How Many Years Have You Smoked Tobacco? 35 [email or web address] Information not available 09/20/2024 Sex: Unknown Functional Status Question Answer Note LastModified by Organizat ion Details LastModified Time Do you use any illicit or recreational drugs? No [email or web address] Information not available 09/20/2024 Do you or have you ever used any other forms of tobacco or nicotine? Yes [email or web address] Information not available 09/20/2024 What is your level of alcohol consumption? None [email or web address] Information not available 09/20/2024 Do you or have you ever used e-cigarettes or vape? Never used electronic cigarettes [email or web address] Information not available 09/20/2024 Mental Status Question Answer Note LastModified by Organization D etails LastModified Time Do you feel stressed (tense, restless, nervous, or anxious, or unable to sleep at night)? [id number] [email or web address] Information not available 09/20/2024 Family History Relationship Description Onset Age of this Age Resolved Age Notes LastModified by Organization Details LastModified Time Father Anxiety [email or web address] Not available 09/20/2024 11:47:22 Medical History Condition Response Anxiety Disorder Y High Cholesterol Y Psychiatric/Mental Health Condition Y Depression Y Psychiatric Illness Y Past Encounters Encounter ID Performer Location Encounter Start Date Encounter Closed Date Diagnosis/Indication Diagnosis SNOMED-CT Code Diagnosis ICD10 Code Diagnosis IMO Codes Diagnosis Note [id number] Brittni Braswell CNM, [facility]- Main Office [address] [place] [address] 09/20/2024 11:17:25 09/21/2024 10:58:38 Severe 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 03712608 F33.2 [id number] Clark presents with severe depressive symptoms including [...] . Submit prior authorizat ion request to [place] insurance for Spravato treatment Plan to initiate [...] of antidepres sants Generalize d anxiety disorder 15483850 F41.1 [id number] Clark reports significan t anxiety symptoms including [...] if anxiety remains poorly controlled Suicidal thoughts 430991 6 R45.650 [id number] Clark reports chronic passive suicidal thoughts without [...] if thoughts worsen [id number] Brittni Braswell CNM, [facility] Main Office [address] [facility] [place] [place] [address] 10/09/2024 13:16:36 10/10/2024 06:28:06 Severe 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 36514538 F33.2 [id number] Clark presents with severe depressive symptoms including [...] 131minutes total time [id number] Brittni Braswell CNM, [facility] Main Office [address] [place] [address] 10/12/2024 09:11:56 10/15/2024 06:28:23 Severe 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 no dissociati on with treatment. Did states having some feeling of feeling drunkVss before, during, and after therapy. .Quincy brought Clark to his visit and is here to take home.Disch arge home at 1017. 137minutes total time [id number] Brittni Braswell CNM, [facility] Main Office [address] [place] [address] 10/17/2024 09:02:24 10/22/2024 06:39:37 Severe 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 84355551 F33.2 99243735 5978742 8921 Spravato 28mg given intranasal ly and repeated at 0821, 3rd dose given at 0826 SAO2 98-99%Jaso n did well with therapy. no dissociati on with treatment. Did states having some feeling of feeling drunkVss before, during, and after therapy. .Domingo brought Clark to his visit and is here to take home.Disch arge home at 1030. 135minutes total time [id number] Brittni Braswell CNM, [facility] Main Office [address] [place] [address] 10/22/2024 10:25:36 10/23/2024 06:26:47 Severe 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 89831538 F33.2 52663562 0953 Spravato 28mg given intranasal ly and repeated at 0958, 3rd dose given at 1005 SAO2 98-99%Jaso n did well with therapy. no dissociati on with treatment. Vss before, during, and after therapy. .Quincy brought Clark to his visit and is here to take home.Disch arge home at 1205. 153 minutes total timereturn on tuesday for next treatment Suicidal thoughts 180905 6 R45.820 [id number] Clark reports chronic passive suicidal thoughts without current intent or plan. He has a history of one psychiatri c hospitaliz ation around 2009 for suicidal ideation.t o text 988 call 911 or go to the nearest hospital if SI increases [id number] Brittni Braswell CNM, [facility] Main Office [address] [facility] [place] [address] 10/24/2024 09:04:47 10/25/2024 06:32:42 Severe 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 48369280 F33.2 24670368 The patient continues to experience significan t [...] for next treatment [id number] Brittni Braswell CNM, [facility] Main Office [address] [place] [address] 10/29/2024 09:01:20 10/30/2024 06:34:03 Severe 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 no dissociati on with treatment. Vss before, during, and after therapy. .Quincy brought Clark to his visit and is here to take home.Disch arge home at 1024. 132 minutes total timereturn on tuesday for next treatment [id number] Brittni Braswell CNM, [facility] Main Office [address] [place] [address] 11/05/2024 08:58:49 11/06/2024 06:28:12 Severe 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 25379273 F33.2 63990809 The patient continues to experience significan t [...] total timereturn on Tuesday for next treatment [id number] Brittni Braswell CNM, [facility]- Main Office [address] [place] [address] 11/07/2024 09:06:14 11/08/2024 06:33:02 Severe 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 44371320 F33.2 [id number] Assessment and Plan 1. Depression with Passive [...] CNM, [facility]- Main Office [address] [place] [address] 11/12/2024 09:02:07 11/12/2024 15:46:49 Severe 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 25911253 F33.2 [id number] I discussed with Clark his current mood [...] for next treatment Generalize d anxiety disorder 85380202 F41.1 [id number] Clark reports significan t anxiety symptoms including [...] remains poorly controlled [id number] Brittni Braswell CNM, [facility] Main Office [address] [facility] [place] [address] 11/14/2024 08:59:03 11/15/2024 06:24:30 Severe 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 92045105 F33.2 32855030 After two more weeks, transition to a less frequent schedule (weekly treatments )Recommend ed continued therapy, though patient is not currently engaged in therapyEnc ouraged continued follow-up with his nurse practition er in [facility] patient to inform his nurse practition er about our treatment planInform ed patient about potential location change with services becoming available in the [facility], which would be more convenient [...] here to take home.Disch leno home at 1024. 138 minutes total timereturn on Tuesday for next treatment [id number] Brittni Braswell CNM, [facility] Main Office [address] [place] [address] 11/19/2024 13:51:23 11/20/2024 06:23:14 Severe 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 31566285 F33.2 [id number] Clark was seen this am by his [...] on Tuesday for next treatment Suicidal thoughts 712707 6 R45.512 [id number] Clark reports chronic passive suicidal thoughts without current intent or plan. He has a history of one psychiatri c hospitaliz ation around 2009 for suicidal ideation.t o text 988 call 911 or go to the nearest hospital if SI increases [id number] Brittni Braswell CNM, [facility]- Main Office [address] [place] [address] 11/21/2024 08:57:48 11/22/2024 06:17:31 Severe 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 31184366 F33.2 [id number] Clark is showing signs of improvemen t [...] for next treatment [id number] Brittni Braswell CNM, [facility] Main Office [address] [place] [address] 11/26/2024 09:02:51 11/27/2024 06:20:23 Severe 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 55079313 F33.2 88078671 Patient continues to experience feelings of worthlessn [...] patient to review before next appointmen tAcknowled ged the positive signs of engagement in activities [...] for next treatment [id number] Brittni Braswell CNM, [facility] Main Office [address] [facility] [place] [address] 11/28/2024 09:04:18 11/29/2024 06:29:54 Severe 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 37463702 F33.2 59358054 6025082 The patient continues to experience significan t [...] for next treatment [id number] Brittni Braswell CNM, [facility] Main Office [address] [place] [address] 12/03/2024 09:01:37 12/04/2024 06:29:14 Severe 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 44415006 F33.2 [id number] I discussed with Clark his improvemen t [...] for next treatment [id number] Brittni Braswell CNM, [facility] Main Office [address] [place] [address] 12/11/2024 12:40:06 12/12/2024 06:36:21 Severe 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 25399491 F33.2 [id number] Clark continues to experience anxiety symptoms with [...] for next treatment [id number] Brittni Braswell CNM, [facility]- Main Office [address] [facility] [place] [address] 12/19/2024 09:03:23 12/20/2024 06:44:01 Severe 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 21897202 F33.2 [id number] Clark reports improvemen t in his depressive [...] next treatment [id number] Brittni Braswell CNM, [facility] Main Office [address] [facility] [place] [address] 12/25/2024 09:00:36 12/26/2024 06:41:24 Severe 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 18781482 F33.2 12571051 Patient reports feeling anxious today and mentions [...] next treatment [id number] Brittni Braswell CNM, [facility] Main Office [address] [place] [address] 12/31/2024 09:05:07 01/01/2025 16:42:21 Severe 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 94552901 F33.2 [id number] Clark continues to experience significan t depressive [...] CNM, [facility]- Main Office [address] [place] [address] 01/07/2025 09:10:58 01/09/2025 07:41:37 Severe 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 41378295 F33.2 [id number] I discussed with Clark his ongoing symptoms [...] next week as we reassess treatment directionD iscussvalarie mooreibilit [facility] when services are establishjade Sharif reassess treatment [...] CNM, [facility]- Main Office [address] [place] [address] 01/21/2025 09:10:22 01/24/2025 00:46:29 Severe 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 40337598 F33.2 78285219 I discussed with the patient his recent [...] response to treatmentD [facility] when services are establishjade Sharif reassess treatment [...] for next treatment [id number] Brittni Braswell CNM, [facility] Main Office [address] [facility] [place] [address] 02/05/2025 09:08:55 02/06/2025 09:22:01 Severe 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 05600242 F33.2 1980059 0810 Spravato 28mg given intranasal ly and [...] for next treatment [id number] Brittni Braswell CNM, [facility] Main Office [address] [place] [address] 02/18/2025 11:23:59 02/19/2025 08:02:17 Severe 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 19869891 F33.2 27779200 The patient continues to experience significan t [...] for next treatment 90 Brittni Braswell CNM, [facility] Main Office [address] [facility] [place] [address] 02/20/2025 11:20:01 02/21/2025 18:16:30 Severe 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 27828919 F33.2 27270133 The patient continues to experience feelings of [...] 10:35, 3rd dose given at 10:40. SAO2 29=362%Kyree on did well with therapy. no dissociati on with treatment. Vss before, during, and after therapy. .Quincy brought Clark to his visit and is here to take home.Disch arge home at 12:40PM, 130minuten ext treatment - Tuesday 91 Brittni Braswell CNM, [facility] Main Office [address] [place] [address] 02/27/2025 11:29:37 02/28/2025 21:20:18 Severe 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 29882686 F33.2 [id number] I discussed with the patient his report [...] ext treatment - Tuesday Brittni Braswell CNM, [facility] Main Office [address] [place] [address] 03/05/2025 09:09:57 03/05/2025 20:18:49 Severe 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 28789075 F33.2 [id number] Clark esquivel continues to experience depression with [...] ext treatment - 9252 Brittni Braswell CNM, [facility] Main Office [address] [place] [address] 03/07/2025 11:15:40 03/07/2025 22:05:33 Severe 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 36477006 F33.2 [id number] Clark continues to experience fatigue and low [...] weekly appointmen ts when we relocate to [place] Schedule follow-up appointmen ts for Tuesday and Tuesday next Plan to transition to Tuesday and Tuesday appointmen ts at the [place] location starting March 19, 2025 Continue to monitor PHQ-9 scores to track progress 1037 Spravato 28mg given intranasal ly and repeated at 1042am, 3rd dose given at 1047am. SAO2 98-99%Brody n did well with therapy. no dissociati on with treatment. Vss before, during, and after therapy. .Quincy brought Clark to his visit and is here to take home.Disch arge home at 12:47PM, 130minuten ext treatment - Tuesday Brittni Braswell CNM, [facility]- Main Office [address] [place] [address] 03/11/2025 11:23:18 03/13/2025 08:05:19 Severe 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 50279187 F33.2 [id number] The patient reports feeling a little better [...] express strong negative feelings about the upcoming holiday season but anticipate s improvemen t after [...] Tuesday and Tuesday appointmen ts at the [facility] starting March 19, 2025 Continue to monitor PHQ-9 scores to track progress 1047 Spravato 28mg given intranasal ly and repeated at 1052am, 3rd dose given at 737[address]yk. SAO2 96-100%Kyree on did well with therapy. no dissociati on with treatment. Vss before, during, and after therapy. .Quincy brought Clark to his visit and is here to take home.Disch arge home at 12:59PM, 132minuten ext treatment - tuesday [id number] Brittni Braswell CNM, [facility]- Main Office [address] [place] [address] 03/13/2025 11:23:26 03/15/2025 10:09:34 Severe 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 16066583 F33.2 83933816 The patient reports feeling a little better [...] Tuesday and Tuesday appointmen ts at the [facility] March 19, 2025 Continue to monitor PHQ-9 scores to track progress 1025Sprava to 28mg given intranasal ly and repeated at 1030am, 3rd dose given at 1035am. SAO2 97-98%Jaso n did well with therapy. no dissociati on with treatment. Vss before, during, and after therapy. .Quincy brought Clark to his visit and is here to take home.Disch arge home at 12:36PM, 131minuten ext treatment - Tuesday at [place] office Health Concerns Section Related Observation LastModified by Organization Detai ls LastModified Time None Recorded Concern Status LastModified by Organization Details LastModified Time None Recorded Advance Directives Directive None Recorded Payers Insurance Date Sequence Insurance Name Policy Number Policy Davidson Covered Member ID Davidson Member ID Guarantor Name 03/18/2025 2 [facility] - DOS ON OR AFTER 2020 - DUAL ELIGIBLE (MEDICARE REPLACEMENT/A DVANTAGE - HMO) Clark Delarosa [id number] Clark Delarosa 03/18/2025 1 [place] [employer] [place] Clark Delarosa [id number] Clark Delarosa Notes Date Note Type Note [...] Medication History Brittni Braswell CNM, PMHNP- [address], [place], [address], [facility] 02/27/2025 22:42:33 03/05/2025 text/html History of present [...] Not provided Medication History Brittni Braswell CNM, [facility]- [address], [place], [address], [facility] 03/05/2025 15:58:13 03/07/2025 text/html History of present illness Clark Delarosa is a 49-year-old male seen today [...] auditory or visual hallucinations. Brittni Braswell CNM, [facility]- [address], [place], [address], [facility] 03/07/2025 20:43:34 03/11/2025 text/html History of present illness Clark Delarosa is a 49-year-old male presenting for spravato treatment He reports feeling a little down but notes that he has been having some productive periods with increased energy at times. He mentions disliking the upcoming [place] holiday season. He reports that he chopped firewood this week, though he acknowledges he's not up to that part anymore of chopping wood by hand. He worked on his brother's car on Tuesday, saving him approximately $1,500-1,800. On Tuesday and Tuesday, he obtained and split wood. He reports getting winded quickly during physical activities. He states he has been taking naps but is getting stuff done in between. He reports having a vivid dream where he pummeled this trans for spitting in my face, describing it as the craziest fucking dream. Past Medical History Illness, Injuries, Operations, and Treatment: Not provided Previous Psychiatric or Mental Health Treatment: Not provided Previous Psychiatric or Mental Health Hospitalization: Not provided Medication History Prazosin: Patient reports he stopped taking this medication. He mentions that they came out with some cancer as a reason for stopping. He notes that his doctor did not refill the prescription, though the pharmacy sent him a refill reminder. Brittni Braswell CNM, [facility]- [address], [place], [address], [facility] 03/12/2025 23:11:18 03/13/2025 text/html History of present illnessClark Delarosa [...] pharmacy sent him a refill reminder. Brittni Braswell CNM, [facility]- [address], [place], [address], [facility] 03/14/2025 00:58:03
--- OUTSIDE RECORDS SUMMARY | 2025-03-18 15:20 | XMS_ITS | Continuity of Care Document ---
Author Organization [facility] [place], Main Office Address [address] [place] [address] Assessment Encounter Date Assessment Date Assessment LastModified [...] in his car today. Standardized Scales: PHQ9=23 [email or web address] Not available 02/05/2025 14:40:14 Plan of Treatment [...] Severe 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 81120665 Active 2024 Brittni Braswell CNM, [facility] [address], [place], [address], [facility] 5 11:39:02 Generalize d anxiety disorder 34512943 Active 2024 Brittni Braswell CNM, [facility] [address], [place], [address], [facility] 13:11:05 Suicidal thoughts 6582353 Active 2024 Brittni Braswell CNM, [facility] [address], [place], [address], [facility] 13:11:32 Severe recurrent major depression 055124717129 Active 2024 Brittni Braswell CNM, [facility] [address], [place], [address], [facility] 21:55:51 Problem Notes None [...] Last Updated DateTime 172.72 cm 25.4 kg/m2 46215.9 3 g 97 /min 100 % 85 /min 90 /min 96 % 99 % 115/72 mm[Hg] 127/78 mm[Hg] 122/82 mm[Hg] Jocy Calabrese [facility] 11:23:31 Social History Question Answer Notes LastModified by Colov[employer] Details LastModified Time Tobacco Smoking Status Current Every Day Smoker Brittni Braswell, NIC, PMHNP- [address], [place], [address], [facility] 09/20/2024 12:05:26 Are There Any Guns Present In Your Home? Yes [email or web address] Information not available 09/20/2024 Do You Feel Safe In Your Home? Yes [email or web address] Information not available 09/20/2024 How Much Tobacco Do You Smoke? 1 PPD [email or web address] Information not available 09/20/2024 Has Tobacco Cessation Counseling Been Provided? No [email or web address] Information not available 09/20/2024 How Many Years Have You Smoked Tobacco? 35 Information not available 09/20/2024 Sex: Unknown Functional Status Question Answer Note LastModified by [employer] Details LastModified Time Do you use any illicit or recreational drugs? No [email or web address] Information not available 09/20/2024 Do you or have you ever used any other forms of tobacco or nicotine? Yes [email or web address] Information not available 09/20/2024 What is your level of alcohol consumption? None [email or web address] Information not available 09/20/2024 Do you or have you ever used e-cigarettes or vape? Never used electronic cigarettes [email or web address] Information not available 09/20/2024 Mental Status Question Answer Note LastModified by Organization D etails LastModified Time Do you feel stressed (tense, restless, nervous, or anxious, or unable to sleep at night)? [id number] [email or web address] Information not available 09/20/2024 Family History Relationship Description Onset Age of this Age Resolved Age Notes LastModified by Organization Details LastModified Time Father Anxiety [email or web address] Not available 09/20/2024 11:47:22 Medical History Condition Response Anxiety Disorder Y Psychiatric/Mental Health Condition Y Depression Y High Cholesterol Y Psychiatric Illness Y Past Encounters Encounter ID Performer Location Encounter Start Date Encounter Closed Date Diagnosis/Indication Diagnosis SNOMED-CT Code Diagnosis ICD10 Code Diagnosis IMO Codes Diagnosis Note [id number] Brittni Braswell CNM, [facility] Main Office [address] [place] [address] 01/07/2025 09:10:58 01/09/2025 07:41:37 Severe 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 09664120 F33.2 [id number] I discussed with Clark his ongoing symptoms [...] week as we reassess treatment directionD [facility] when [...] for next treatment [id number] Brittni Braswell CNM, [facility] Main Office [address] [facility] [place] [address] 01/21/2025 09:10:22 01/24/2025 00:46:29 Severe 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 92878311 F33.2 [id number] I discussed with the patient his recent [...] response to treatmentD [facility] when services are establishe emily Sharif reassess [...] for next treatment [id number] Brittni Braswell CNM, PMHNP- Main Office [address] [place] [address] 02/05/2025 09:08:55 02/06/2025 09:22:01 Severe 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 72072840 F33.2 7549004 0810 Spravato 28mg given intranasal ly and [...] ID Davidson Member ID Guarantor Name 02/05/2025 2 [facility] - DOS ON OR AFTER 2020 - DUAL ELIGIBLE (MEDICARE REPLACEMENT/ ADVANTAGE - HMO) Clark Delarosa [id number] Clark Delarosa Notes Date Note Type Note [...] sleep difficulties since the dosage reduction. Brittni Braswell CNM, PMHNP-BC [address], [place], [address], [facility] - [facility] 02/05/2025 14:42:57
--- OUTSIDE RECORDS SUMMARY | 2025-03-18 15:20 | XMS_ITS | Continuity of Care Document ---
Author Organization [facility], Main Office Address [address] [place] [address] Assessment Encounter Date Assessment Date Assessment LastModified [...] symptoms and their response to current treatment Not available 02/18/2025 23:06:39 Plan of Treatment [...] Severe 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 16185835 Active 2024 Brittni Braswell CNM, [facility] [address], [place], [address], [facility] 11:39:02 Generalize d anxiety disorder 12007939 Active 2024 Brittni Braswell CNM, [facility] [address], [place], [address], [facility] 13:11:05 Suicidal thoughts 3171455 Active 2024 Brittni Braswell CNM, [facility] [address], [place], [address], [facility] 13:11:32 Severe recurrent major depression 554810558881 Active 2024 Brittni Braswell CNM, [facility] [address], [place], [address], [facility] 21:55:51 Problem Notes None [...] Last Updated DateTime 172.72 cm 26.2 kg/m2 22840.8 9 g 89 /min 99 % 81 /min 99 % 77 /min 99 % 122/76 mm[Hg] 118/81 mm[Hg] 123/87 mm[Hg] Jocy Calabrese [facility] 14:28:45 Social History Question Answer Notes LastModified by [employer] ion Details LastModified Time Tobacco Smoking Status Current Every Day Smoker Brittni Braswell, NIC, PMHNP-BC [address] [facility] [address], [place], [address], [facility] 09/20/2024 12:05:26 Are There Any Guns Present In Your Home? Yes [email or web address] Information not available 09/20/2024 Do You Feel Safe In Your Home? Yes [email or web address] Information not available 09/20/2024 How Much Tobacco Do You Smoke? 1 PPD [email or web address] Information not available 09/20/2024 Has Tobacco Cessation Counseling Been Provided? No [email or web address] Information not available 09/20/2024 How Many Years Have You Smoked Tobacco? 35 [email or web address] Information not available 09/20/2024 Sex: Unknown Functional Status Question Answer Note LastModified by Organizat ion Details LastModified Time Do you use any illicit or recreational drugs? No [email or web address] Information not available 09/20/2024 Do you or have you ever used any other forms of tobacco or nicotine? Yes [email or web address] Information not available 09/20/2024 What is your level of alcohol consumption? None [email or web address] Information not available 09/20/2024 Do you or have you ever used e-cigarettes or vape? Never used electronic cigarettes [email or web address] Information not available 09/20/2024 Mental Status Question Answer Note LastModified by Organization D etails LastModified Time Do you feel stressed (tense, restless, nervous, or anxious, or unable to sleep at night)? [id number] [email or web address] Information not available 09/20/2024 Family History Relationship Description Onset Age of this Age Resolved Age Notes LastModified by Organization Details LastModified Time Father Anxiety [email or web address] Not available 09/20/2024 11:47:22 Medical History Condition Response Anxiety Disorder Y Psychiatric/Mental Health Condition Y Depression Y Psychiatric Illness Y High Cholesterol Y Past Encounters Encounter ID Performer Location Encounter Start Date Encounter Closed Date Diagnosis/Indication Diagnosis SNOMED-CT Code Diagnosis ICD10 Code Diagnosis IMO Codes Diagnosis Note [id number] Brittni Braswell CNM, [facility]- Main Office [address] [place] [address] 01/21/2025 09:10:22 01/24/2025 00:46:29 Severe 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 [id number] F33.2 [id number] I discussed with the patient his recent [...] to treatmentD [facility] when services are establishe emily Sharif [...] for next treatment [id number] Brittni Braswell CNM, [facility] Main Office [address] [place] [address] 02/05/2025 09:08:55 02/06/2025 09:22:01 Severe 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 98871149 F33.2 9556392 0810 Spravato 28mg given intranasal ly and [...] for next treatment [id number] Brittni Braswell CNM, [facility] Main Office [address] [place] [address] 02/18/2025 11:23:59 02/19/2025 08:02:17 Severe 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 17023767 F33.2 [id number] The patient continues to experience significan t [...] ID Davidson Member ID Guarantor Name 02/18/2025 2 [facility] - DOS ON OR AFTER 2020 - DUAL ELIGIBLE (MEDICARE REPLACEMENT/ ADVANTAGE - HMO) Clark Delarosa [id number] Clark Delarosa Notes Date Note Type Note [...] brother is considering selling his house in [place] and needed help with painting. He reports [...] classified as carcinogenic by the FDA. Brittni Braswell, NIC, PMHNP-BC [address], [place], [address], [facility] - [facility] 02/18/2025 23:07:52
--- OUTSIDE RECORDS SUMMARY | 2025-03-18 15:20 | XMS_ITS | Continuity of Care Document ---
Author Organization [facility], Main Office Address [address] [place] [address] Assessment Encounter Date Assessment Date Assessment LastModified [...] importance of consistent attendance at treatment sessions [email or web address] Not available 02/27/2025 22:36:34 Plan of Treatment [...] Severe 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 00066738 Active 2024 Brittni Braswell CNM, [facility] [address], [place], [address], [facility] 5 11:39:02 Generalize d anxiety disorder 14751871 Active 2024 Brittni Braswell CNM, [facility] [address], [place], [address], [facility] 13:11:05 Suicidal thoughts 8582983 Active 2024 Brittni Braswell CNM, [facility] [address], [place], [address], [facility] 13:11:32 Severe recurrent major depression 349212869571 Active 2024 Brittni Braswell CNM, [facility] [address], [place], [address], [facility] 21:55:51 Problem Notes [...] Last Updated DateTime 172.72 cm 25.8 kg/m2 01901.7 g 86 /min 98 % 68 /min 82 /min 99 % 100 % 129/76 mm[Hg] 134/89 mm[Hg] 124/84 mm[Hg] Jocy Calabrese [facility] 16:13:10 Social History Question Answer Notes LastModified by [employer] Details LastModified Time Tobacco Smoking Status Current Every Day Smoker Brittni Braswell, NIC, PMHNP- [address], [place], [address], [facility] 09/20/2024 12:05:26 Are There Any Guns Present In Your Home? Yes [email or web address] Information not available 09/20/2024 Do You Feel Safe In Your Home? Yes [email or web address] Information not available 09/20/2024 How Much Tobacco Do You Smoke? 1 PPD [email or web address] Information not available 09/20/2024 Has Tobacco Cessation Counseling Been Provided? No [email or web address] Information not available 09/20/2024 How Many Years Have You Smoked Tobacco? 35 [email or web address] Information not available 09/20/2024 Sex: Unknown Functional Status Question Answer Note LastModified by [employer] Details LastModified Time Do you use any illicit or recreational drugs? No [email or web address] Information not available 09/20/2024 Do you or have you ever used any other forms of tobacco or nicotine? Yes [email or web address] Information not available 09/20/2024 What is your level of alcohol consumption? None [email or web address] Information not available 09/20/2024 Do you or have you ever used e-cigarettes or vape? Never used electronic cigarettes [email or web address] Information not available 09/20/2024 Mental Status Question Answer Note LastModified by Organization D etails LastModified Time Do you feel stressed (tense, restless, nervous, or anxious, or unable to sleep at night)? [id number] [email or web address] Information not available 09/20/2024 Family History Relationship Description Onset Age of this Age Resolved Age Notes LastModified by Organization Details LastModified Time Father Anxiety [email or web address] Not available 09/20/2024 11:47:22 Medical History Condition Response Depression Y Anxiety Disorder Y High Cholesterol Y Psychiatric/Mental Health Condition Y Psychiatric Illness Y Past Encounters Encounter ID Performer Location Encounter Start Date Encounter Closed Date Diagnosis/Indication Diagnosis SNOMED-CT Code Diagnosis ICD10 Code Diagnosis IMO Codes Diagnosis Note [id number] Brittni Braswell CNM, [facility] Main Office [address] [facility] [address] 02/05/2025 09:08:55 02/06/2025 09:22:01 Severe 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 72758293 F33.2 9960683 0810 Spravato 28mg given intranasal ly and [...] for next treatment [id number] Brittni Braswell CNM, [facility] Main Office [address] [place] [address] 02/18/2025 11:23:59 02/19/2025 08:02:17 Severe 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 SAO2 18=502%Kyree on did well with therapy. no dissociati on with treatment. Vss before, during, and after therapy. .Quincy brought Clark to his visit and is here to take home.Disch leno home at 12:40PM, 130minuten ext treatment - Tuesday Brittni Braswell CNM, [facility] Main Office [address] [place] [address] 02/27/2025 11:29:37 02/28/2025 21:20:18 Severe 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 23695555 F33.2 4192236 I discussed with the patient his report of having a crap week and feeling pretty worthless. We noted that he was previously doing better and need to work on returning to that improved state. I assessed for suicidal ideation, which he denied.Con tinue current treatment approachMo nitor mood symptoms at [...] ID Davidson Member ID Guarantor Name 02/27/2025 2 [facility] - DOS ON OR AFTER 2020 - DUAL ELIGIBLE (MEDICARE REPLACEMENT/ ADVANTAGE - HMO) Clark Delarosa [id number] Clark Delarosa Notes Date Note Type Note [...] Brittni Braswell CNM, PMHNP-BC [address], [place], [address], [facility] 02/27/2025 22:42:33
--- OUTSIDE RECORDS SUMMARY | 2025-03-18 15:20 | XMS_ITS | Encounter Summary ---
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 Name Role Phone Bismark Aldana MD Primary Care Provider [phone] None, Provider Primary Care Provider Unavaila ble Encounter Details Date Type Department Care Team (Late st Contact Info) Description 09/23/2018 Abstract [facility] CONVERSION [address] [place] [address] , Generic Conversion, Social History Tobacco Use Types Packs/Day Years Used Date Smoking Tobacco: Never Assessed Sex and Gender Information Value Date Recorded Sex Assigned at Not on file Legal Sex Male 5:51 PM [employer] Gender Identity Not on file Sexual Orientation Not on file documented as of this encounter Plan of Treatment Not on file documented as of this encounter Visit Diagnoses Not on filedocumented in this encounter Care Teams Knitting Machine Fixer Head Relationship Specialty Start Date End Date Bismark Aldana MD [address] [place] [address] PCP - General FAMILY PRACTICE 06/17/19 12/28/23 None, ProviderMD PCP - General UNKNOWN PHYSICIAN SPECIALTY 12/29/23 documented as of this encounter
--- OUTSIDE RECORDS SUMMARY | 2025-03-18 15:20 | XMS_ITS | Continuity of Care Document ---
Author Organization [facility] [employer] [facility], Main Office Address [address] [place] [address] Assessment Encounter Date Assessment Date Assessment LastModified [...] impact on his condition. Standardized Scales: PHQ9=24 [email or web address] Not available 01/07/2025 09:48:59 Plan of Treatment [...] Severe 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 01009122 Active 2024 Brittni Braswell CNM, PMHNP- [address], [place], [address], [facility] 11:39:02 Generalize d anxiety disorder 84116364 Active 2024 Brittni Braswell CNM, [facility] [address], [place], [address], [facility] 13:11:05 Suicidal thoughts 8336348 Active 2024 Brittni Braswell CNM, [facility] [address], [place], [address], [facility] 13:11:32 Severe recurrent major depression 945351466490 Active 2024 Brittni Braswell CNM, [facility] [address], [place], [address], [facility] 21:55:51 Problem Notes None [...] Updated DateTime 5 172.72 cm 25 kg/m2 83840.8 7 g 76 /min 100 % 115/74 mm[Hg] Brittni Braswell CNM, [facility]- [address], [place], [address], [facility] 5 09:17:53 Date Recorded Heart rate Oxygen saturation Heart rate Oxygen saturation Systolic And Diastolic Systolic And Diastolic Provider Name and Address Organization Details Last Updated DateTime 5 87 /min 97 % 72 /min 97 % 97/65 mm[Hg] 108/72 mm[Hg] Jocy Guanakito [facility] 5 11:47:45 Social History Question Answer Notes LastModified by [employer] Details LastModified Time Tobacco Smoking Status Current Every Day Smoker Brittni Braswell CNM, [facility]- [address], [place], [address], [facility] 09/20/2024 12:05:26 Are There Any Guns Present In Your Home? Yes [email or web address] Information not available 09/20/2024 Do You Feel Safe In Your Home? Yes [email or web address] Information not available 09/20/2024 How Much Tobacco Do You Smoke? 1 PPD Information not available 09/20/2024 Has Tobacco Cessation Counseling Been Provided? No [email or web address] Information not available 09/20/2024 How Many Years Have You Smoked Tobacco? 35 [email or web address] Information not available 09/20/2024 Sex: Unknown Functional Status Question Answer Note LastModified by Organizat ion Details LastModified Time Do you use any illicit or recreational drugs? No [email or web address] Information not available 09/20/2024 Do you or have you ever used any other forms of tobacco or nicotine? Yes Information not available 09/20/2024 What is your level of alcohol consumption? None [email or web address] Information not available 09/20/2024 Do you or have you ever used e-cigarettes or vape? Never used electronic cigarettes Information not available 09/20/2024 Mental Status Question Answer Note LastModified by Organization D etails LastModified Time Do you feel stressed (tense, restless, nervous, or anxious, or unable to sleep at night)? [id number] Information not available 09/20/2024 Family History Relationship Description Onset Age of this Age Resolved Age Notes LastModified by Organization Details LastModified Time Father Anxiety [email or web address] Not available 09/20/2024 11:47:22 Medical History Condition Response Depression Y Anxiety Disorder Y High Cholesterol Y Psychiatric/Mental Health Condition Y Psychiatric Illness Y Past Encounters Encounter ID Performer Location Encounter Start Date Encounter Closed Date Diagnosis/Indication Diagnosis SNOMED-CT Code Diagnosis ICD10 Code Diagnosis IMO Codes Diagnosis Note [id number] Brittni Braswell CNM, [facility] Main Office [address] [place] [address] 12/11/2024 12:40:06 12/12/2024 06:36:21 Severe 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 We discussed the importance of medication adherence, particular ly with Cecylialine, which he had inadverten tly discontinu ed [...] next treatment [id number] Brittni Braswell CNM, [facility] Main Office [address] [facility] [place] [address] 12/19/2024 09:03:23 12/20/2024 06:44:01 Severe 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 22300993 F33.2 [id number] Clark reports improvemen t in his depressive [...] PMP- Main Office [address] [place] [address] 12/25/2024 09:00:36 12/26/2024 06:41:24 Severe 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 35436962 F33.2 [id number] Patient reports feeling anxious today and mentions [...] next treatment [id number] Brittni Braswell CNM, [facility] Main Office [address] [place] [address] 12/31/2024 09:05:07 01/01/2025 16:42:21 Severe 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 96181848 F33.2 [id number] Clark continues to experience significan t depressive [...] the potential benefits of updated testing with [employer] Continue to monitor for suicidal ideation and [...] for next treatment [id number] Brittni Braswell CNM, [facility] Main Office [address] [place] [address] 01/07/2025 09:10:58 01/09/2025 07:41:37 Severe 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 15005546 F33.2 [id number] I discussed with Clark his ongoing symptoms [...] reassess treatment directionD musa mooreibilit y of transferri [facility] when services are establishe d Chante reassess [...] ID Davidson Member ID Guarantor Name 01/07/2025 2 [facility] - DOS ON OR AFTER 2020 - DUAL ELIGIBLE (MEDICARE REPLACEMENT/ ADVANTAGE - HMO) Clark Delarosa [id number] Clark Delarosa Notes Date Note Type Note [...] Brittni Braswell CNM, PMHNP-BC [address], [place], [address], [facility] [place] 01/07/2025 21:02:27
--- OUTSIDE RECORDS SUMMARY | 2025-03-18 15:20 | XMS_ITS | Continuity of Care Document ---
Author Organization [facility] [place], Main Office Address [address] [place] [address] Assessment Encounter Date Assessment Date Assessment LastModified by Organization Details LastModified Time 03/11/2025 03/11/2025 Labs and Imaging Visit Summary [...] not been achieved. Standardized Scales: PHQ9=23 GAD7=21 [email or web address] Not available 03/12/2025 23:10:21 Plan of Treatment [...] By Organization Details Last Modified Time 03/11/2025 [id number] The patient repo rts discontinuing prazosin due [...] address at next follow-up appointment on Tuesday [email or web address] Not available 03/12/2025 23:09:21 Reason for Referral None Reported. 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 08969735 Active 2024 Brittni Braswell CNM, [facility] [address], [place], [address], [facility] 11:39:02 Generalize d anxiety disorder 60635136 Active 2024 Brittni Braswell CNM, [facility] [address], [place], [address], [facility] 13:11:05 Suicidal thoughts 3263061 Active 2024 Brittni Braswell CNM, [facility] [address], [place], [address], [facility] 13:11:32 Severe recurrent major depression 429077486138 Active 2024 Brittni Braswell CNM, [facility] [address], [place], [address], [facility] 21:55:51 Problem Notes None recorded. Medical Equipment [...] Last Updated DateTime 172.72 cm 25.8 kg/m2 40981.7 g 88 /min 91 /min 103 /min 100 % 96 % 98 % 103/71 mm[Hg] 132/75 mm[Hg] 103/72 mm[Hg] Jocy Calabrese [facility] 17:53:41 Social History Question Answer Notes LastModified by [employer] ion Details LastModified Time Tobacco Smoking Status Current Every Day Smoker Brittni Braswell, NIC, PMHNP- [address] [address], [place], [address], [facility] 09/20/2024 12:05:26 Are There Any Guns Present In Your Home? Yes Information not available 09/20/2024 Do You Feel Safe In Your Home? Yes [email or web address] Information not available 09/20/2024 How Much Tobacco Do You Smoke? 1 PPD [email or web address] Information not available 09/20/2024 Has Tobacco Cessation Counseling Been Provided? No Information not available 09/20/2024 How Many Years Have You Smoked Tobacco? 35 [email or web address] Information not available 09/20/2024 Sex: Unknown Functional Status Question Answer Note LastModified by Organizat ion Details LastModified Time Do you use any illicit or recreational drugs? No [email or web address] Information not available 09/20/2024 Do you or have you ever used any other forms of tobacco or nicotine? Yes [email or web address] Information not available 09/20/2024 What is your level of alcohol consumption? None [email or web address] Information not available 09/20/2024 Do you or have you ever used e-cigarettes or vape? Never used electronic cigarettes [email or web address] Information not available 09/20/2024 Mental Status Question Answer Note LastModified by Organization D etails LastModified Time Do you feel stressed (tense, restless, nervous, or anxious, or unable to sleep at night)? [id number] [email or web address] Information not available 09/20/2024 Family History Relationship Description Onset Age of this Age Resolved Age Notes LastModified by Organization Details LastModified Time Father Anxiety [email or web address] Not available 09/20/2024 11:47:22 Medical History Condition Response Anxiety Disorder Y Psychiatric/Mental Health Condition Y Depression Y High Cholesterol Y Psychiatric Illness Y Past Encounters Encounter ID Performer Location Encounter Start Date Encounter Closed Date Diagnosis/Indication Diagnosis SNOMED-CT Code Diagnosis ICD10 Code Diagnosis IMO Codes Diagnosis Note [id number] Brittni Braswell CNM, PMHNP- Main Office [address] [place] [address] 02/18/2025 11:23:59 02/19/2025 08:02:17 Severe 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 32764991 F33.2 [id number] The patient continues to experience significan t [...] for next treatment [id number] Brittni Braswell CNM, [facility] Main Office [address] [facility] [place] [place] [address] 02/20/2025 11:20:01 02/21/2025 18:16:30 Severe 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 81242329 F33.2 64969877 The patient continues to experience feelings of [...] 10:35, 3rd dose given at 10:40. SAO2 36=333%Kyree on did well with therapy. no dissociati on with treatment. Vss before, during, and after therapy. .Quincy brought Clark to his visit and is here to take home.Disch arge home at 12:40PM, 130minuten ext treatment - Tuesday Brittni Braswell CNM, [facility] Main Office [address] [place] [address] 02/27/2025 11:29:37 02/28/2025 21:20:18 Severe 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 07815798 F33.2 [id number] I discussed with the patient his report [...] ext treatment - Tuesday Brittni Braswell CNM, [facility] Main Office [address] [place] [address] 03/05/2025 09:09:57 03/05/2025 20:18:49 Severe 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 02635849 F33.2 [id number] Clark esquivel continues to experience depression with [...] ext treatment - [id number] Brittni Braswell CNM, [facility] Main Office [address] [facility] [place] [place] [address] 03/07/2025 11:15:40 03/07/2025 22:05:33 Severe 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 26840143 F33.2 [id number] Clark continues to experience fatigue and low [...] weekly appointmen ts when we relocate to [place] Schedule follow-up appointmen ts for Tuesday and Tuesday next Plan to transition to Tuesday and Tuesday appointmen ts at the [place] location starting March 19, 2025 Continue to [...] CNM, PMHNP- Main Office [address] [place] [address] 03/11/2025 11:23:18 03/13/2025 08:05:19 Severe 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 09278337 F33.2 57297304 The patient reports feeling a little better [...] Tuesday and Tuesday appointmen ts at the [place] location starting March 19, 2025 Continue to monitor PHQ-9 scores to track progress 1047 Spravato 28mg given intranasal ly and repeated at 1052am, 3rd dose given at 93214hz. SAO2 96-100%Kyree on did well with therapy. no dissociati on with treatment. Vss before, during, and after therapy. .Quincy brought Clark to his visit and is here to take home.Disch arge home at 12:59PM, 132minuten ext treatment - tuesday Health Concerns Section Related Observation LastModified by Organization Detai ls LastModified Time None Recorded Concern Status LastModified by Organization Details LastModified Time None Recorded Payers Encounter Date Sequence Insurance Name Policy Number Policy Davidson Covered Member ID Davidson Member ID Guarantor Name 03/11/2025 2 [facility] - DOS ON OR AFTER 2020 - DUAL ELIGIBLE (MEDICARE REPLACEMENT/ ADVANTAGE - HMO) Clark Delarosa [id number] Clark Delarosa Notes Date Note Type Note Provider Name and Address Organization Details Recorded Time 03/11/2025 text/html History of present illness Clark Delarosa is a 49-year-old male presenting for spravato treatment He reports feeling a little down but notes that he has been having some productive periods with increased energy at times. He mentions disliking the upcoming holiday season. He reports that he chopped [...] him a refill reminder. Brittni Braswell CNM, PMHNP- [address], [place], [address], [facility] 03/12/2025 23:11:18
--- OUTSIDE RECORDS SUMMARY | 2025-03-18 15:20 | XMS_ITS | Clinical Summary ---
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
--- OUTSIDE RECORDS SUMMARY | 2025-03-18 15:20 | XMS_ITS | Continuity of Care Document ---
Author Organization [facility] [employer] [facility], Main Office Address [address] [place] [address] Assessment Encounter Date Assessment Date Assessment LastModified [...] into his condition. Standardized Scales: PHQ9=20 GAD7=21 [email or web address] Not available 03/05/2025 15:57:13 Plan of Treatment [...] Severe 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 25989941 Active 2024 Brittni Braswell, NIC, PMHNP-BC [address], [place], [address], [facility] 11:39:02 Generalize d anxiety disorder 82059163 Active 2024 Brittni Braswell CNM, [facility] [address], [place], [address], [facility] 13:11:05 Suicidal thoughts 9439640 Active 2024 Brittni Braswell CNM, [facility] [address], [place], [address], [facility] 13:11:32 Severe recurrent major depression 606985626131 Active 2024 Brittni Braswell CNM, [facility] [address], [place], [address], [facility] 21:55:51 Problem Notes None recorded. Medical [...] Updated DateTime 03/05/2025 172.72 cm Jocy Calabrese [place] [facility] 03/05/2025 09:11:29 Social History Question Answer Notes LastModified by [employer] Details LastModified Time Tobacco Smoking Status Current Every Day Smoker Brittni Braswell CNM, [facility] [address], [place], [address], [facility] 09/20/2024 12:05:26 Are There Any Guns Present In Your Home? Yes [email or web address] Information not available 09/20/2024 Do You Feel Safe In Your Home? Yes [email or web address] Information not available 09/20/2024 How Much Tobacco Do You Smoke? 1 PPD [email or web address] Information not available 09/20/2024 Has Tobacco Cessation Counseling Been Provided? No Information not available 09/20/2024 How Many Years Have You Smoked Tobacco? 35 [email or web address] Information not available 09/20/2024 Sex: Unknown Functional Status Question Answer Note LastModified by [employer] Details LastModified Time Do you use any illicit or recreational drugs? No [email or web address] Information not available 09/20/2024 Do you or have you ever used any other forms of tobacco or nicotine? Yes [email or web address] Information not available 09/20/2024 What is your level of alcohol consumption? None Information not available 09/20/2024 Do you or have you ever used e-cigarettes or vape? Never used electronic cigarettes [email or web address] Information not available 09/20/2024 Mental Status Question Answer Note LastModified by Organization D etails LastModified Time Do you feel stressed (tense, restless, nervous, or anxious, or unable to sleep at night)? [id number] [email or web address] Information not available 09/20/2024 Family History Relationship Description Onset Age of this Age Resolved Age Notes LastModified by Organization Details LastModified Time Father Anxiety [email or web address] Not available 09/20/2024 11:47:22 Medical History Condition Response Depression Y Anxiety Disorder Y High Cholesterol Y Psychiatric/Mental Health Condition Y Psychiatric Illness Y Past Encounters Encounter ID Performer Location Encounter Start Date Encounter Closed Date Diagnosis/Indication Diagnosis SNOMED-CT Code Diagnosis ICD10 Code Diagnosis IMO Codes Diagnosis Note [id number] Brittni Braswell CNM, [facility] Main Office [address] [place] [address] 02/05/2025 09:08:55 02/06/2025 09:22:01 Severe 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 37008376 F33.2 8296233 0810 Spravato 28mg given intranasal ly and [...] [facility] Main Office [address] [address] 02/18/2025 11:23:59 02/19/2025 08:02:17 Severe 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 27151897 F33.2 34920113 The patient continues to experience significan t [...] [facility] Main Office [address] [place] [address] 02/20/2025 11:20:01 02/21/2025 18:16:30 Severe 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 51168540 F33.2 38103215 The patient continues to experience feelings of [...] 10:35, 3rd dose given at 10:40. SAO2 49=420%Kyree on did well with therapy. no dissociati on with treatment. Vss before, during, and after therapy. .Quincy brought Clark to his visit and is here to take home.Disch arge home at 12:40PM, 130minuten ext treatment - Tuesday Brittni Braswell CNM, PMHNP- Main Office [address] [place] [address] 02/27/2025 11:29:37 02/28/2025 21:20:18 Severe 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 81965313 F33.2 [id number] I discussed with the patient his report [...] CNM, PMHNP- Main Office [address] [place] [address] 03/05/2025 09:09:57 03/05/2025 20:18:49 Severe 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 64518978 F33.2 [id number] Clark esquivel continues to experience depression with [...] ID Davidson Member ID Guarantor Name 03/05/2025 2 [facility] - DOS ON OR AFTER 2020 - DUAL ELIGIBLE (MEDICARE REPLACEMENT/ ADVANTAGE - HMO) Clark Delarosa [id number] Clark Delarosa Notes Date Note Type Note [...] Brittni Braswell CNM, PMHNP-BC [address], [place], [address], [facility] 03/05/2025 15:58:13
--- OUTSIDE RECORDS SUMMARY | 2025-03-18 15:20 | XMS_ITS | Continuity of Care Document ---
Author Organization [facility] [place], operated [facility], Main Office Address [address] [place] [address] Assessment Encounter Date Assessment Date Assessment LastModified by Organization Details LastModified Time 12/25/2024 12/25/2024 A 49-year-old male with a history of anxiety, feelings of worthlessness and hopelessness was seen today for [place]. 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 He recently purchased a [id number] truck as a winter project, which he described as giving him something to do instead of just wasting away. This appears to be a positive development for his mental health, providing him with a goal and activity to focus on. Standardized Scales: PHQ9=25 GAD7=20 [email or web address] Not available 12/25/2024 21:41:25 Plan of Treatment [...] Severe 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 88093888 Active 2024 Brittni Braswell CNM, [facility] [address], [place], [address], [facility] 11:39:02 Generalize d anxiety disorder 55746415 Active 2024 Brittni Braswell CNM, [facility] [address], [place], [address], [facility] 13:11:05 Suicidal thoughts 6807218 Active 2024 Brittni Braswell CNM, [facility] [address], [place], [address], [facility] 13:11:32 Severe recurrent major depression 458314788855 Active 2024 Brittni Braswell CNM, [facility] [address], [place], [address], [facility] 21:55:51 Problem Notes [...] Last Updated DateTime 172.72 cm 25.3 kg/m2 99853.0 5 g 75 /min 100 % 89 /min 83 /min 100 % 99 % 111/76 mm[Hg] 110/76 mm[Hg] 107/70 mm[Hg] Joyc Calabrese [facility] 12:29:33 Social History Question Answer Notes LastModified by Organizat ion Details LastModified Time Tobacco Smoking Status Current Every Day Smoker Brittni Braswell, NIC, PMHNP- [address], [place], [address], [facility] 09/20/2024 12:05:26 Are There Any Guns Present In Your Home? Yes [email or web address] Information not available 09/20/2024 Do You Feel Safe In Your Home? Yes [email or web address] Information not available 09/20/2024 How Much Tobacco Do You Smoke? 1 PPD [email or web address] Information not available 09/20/2024 Has Tobacco Cessation Counseling Been Provided? No Information not available 09/20/2024 How Many Years Have You Smoked Tobacco? 35 [email or web address] Information not available 09/20/2024 Sex: Unknown Functional Status Question Answer Note LastModified by Organizat ion Details LastModified Time Do you use any illicit or recreational drugs? No Information not available 09/20/2024 Do you or have you ever used any other forms of tobacco or nicotine? Yes [email or web address] Information not available 09/20/2024 What is your level of alcohol consumption? None [email or web address] Information not available 09/20/2024 Do you or have you ever used e-cigarettes or vape? Never used electronic cigarettes [email or web address] Information not available 09/20/2024 Mental Status Question Answer Note LastModified by Organization D etails LastModified Time Do you feel stressed (tense, restless, nervous, or anxious, or unable to sleep at night)? [id number] [email or web address] Information not available 09/20/2024 Family History Relationship Description Onset Age of this Age Resolved Age Notes LastModified by Organization Details LastModified Time Father Anxiety [email or web address] Not available 09/20/2024 11:47:22 Medical History Condition Response Anxiety Disorder Y Psychiatric/Mental Health Condition Y Depression Y High Cholesterol Y Psychiatric Illness Y Past Encounters Encounter ID Performer Location Encounter Start Date Encounter Closed Date Diagnosis/Indication Diagnosis SNOMED-CT Code Diagnosis ICD10 Code Diagnosis IMO Codes Diagnosis Note [id number] Brittni Braswell CNM, [facility]- Main Office [address] [place] [address] 11/26/2024 09:02:51 11/27/2024 06:20:23 Severe recurrent major depression without psychotic features 48821628 F33.2 [id number] Patient continues to experience feelings of worthlessn [...] [facility] [address] [facility] [place] [address] 11/28/2024 09:04:18 11/29/2024 06:29:54 Severe recurrent major depression without psychotic features 42457174 F33.2 71471768 [id number] The patient continues to experience significan t [...] on Tuesday for next treatment [id number] Brittni Brawsell CNM, [facility] Main Office [address] [place] [address] 12/03/2024 09:01:37 12/04/2024 06:29:14 Severe recurrent major depression without psychotic features 76489266 F33.2 [id number] I discussed with Clark his improvemen t [...] for next treatment [id number] Brittni Braswell CNM, [facility] Main Office [address] [place] [address] 12/11/2024 12:40:06 12/12/2024 06:36:21 Severe recurrent major depression without psychotic features 75494677 F33.2 [id number] Clark continues to experience anxiety symptoms with [...] [facility] [address] [place] [address] 12/19/2024 09:03:23 12/20/2024 06:44:01 Severe 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 142minutes total timereturn on tuesday next week for next treatment Health Concerns Section Related Observation LastModified by Organization Detai ls LastModified Time None Recorded Concern Status LastModified by Organization Details LastModified Time None Recorded Payers Encounter Date Sequence Insurance Name Policy Number Policy Davidson Covered Member ID Davidson Member ID Guarantor Name 12/25/2024 2 [facility] - DOS ON OR AFTER 2020 - DUAL ELIGIBLE (MEDICARE REPLACEMENT/ ADVANTAGE - HMO) Clark Delarosa [id number] Clark Delarosa Notes Date Note Type Note Provider Name and Address Organization Details Recorded Time 12/25/2024 text/html History of present illness Clark Delarosa is a 49-year-old male presenting for [facility]. 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 He recently purchased a [id number] truck as a project for the winter, [...] with mood. Dosage unknown. Brittni Braswell CNM, PMHNP-BC [address], [place], [address], [facility] 12/25/2024 21:43:47
[2025-03-24 15:08] LABS: Interpretation Negative (.)
== END 2025-03-18 14:17 | disposition home or self-care (01) ==
LOC: CHSLAB 14:20
PROVIDERS: PCP Nurse Practitioner Family; Visit Provider Internal Medicine Hematology
DX: D72.829 Elevated white blood cell count, unspecified (principal)
CPT/HCPCS: 81206; 81207